=== PATIENT | female | born 1985 | race Caucasian/White ===

== ENCOUNTER → 2020-06-05 08:20 | Outpatient (CLI) | payer OTHER, MEDICAID, SELFPAY ==
[2014-09-29 13:43] VITALS: BMI 29.1
[2020-06-05 10:20] LABS: T4 Free Direct 0.78 ng/dL (0.76-1.46); Thyroid Stim Hormone (TSH) 2.29 uIU/mL (0.358-3.74)
== END ==
PROVIDERS: PCP Nurse Practitioner Family; Referring Provider Nurse Practitioner Family; Visit Provider Nurse Practitioner Family
DX: R63.5 Abnormal weight gain (principal)
CPT/HCPCS: 36415; 84439; 84443

== ENCOUNTER → 2020-12-03 07:59 | Outpatient (CLI) | payer OTHER, MEDICAID, SELFPAY ==
[2020-12-03 09:44] LABS: Internal QC Validated? YES +Cl - CLEAR BKGD; Pregnancy, Serum, hCG Quali. NEGATIVE Negative
[2020-12-03 11:10] LABS: Follicle Stimulating Hormone 5.3 mIU/mL; Potassium 3.8 mmol/L (3.5-5.1); T4 Free Direct 0.82 ng/dL (0.76-1.46); Thyroid Stim Hormone (TSH) 1.96 uIU/mL (0.358-3.74)
[2020-12-08 15:08] LABS: DHEA Sulfate 73.5 ug/dL (84.8-378.0); Testosterone, % Free 4.12 % (0.50-2.80); Testosterone, Free 0.91 ng/dL (0.10-0.85); Testosterone, Total 22 ng/dL (8-60)
[2020-12-08 16:22] LABS: Androstenedione 149 ng/dL (41-262); Sex Hormone-binding Globulin 20.5 nmol/L (24.6-122.0)
[2020-12-10 14:44] LABS: 17-Hydroxyprogesterone 54 ng/dL (.)
== END ==
PROVIDERS: PCP Nurse Practitioner Family; Referring Provider Dermatology; Visit Provider Dermatology
DX: L70.8 Other acne (principal); E28.2 Polycystic ovarian syndrome; L68.9 Hypertrichosis, unspecified; L83 Acanthosis nigricans; L21.8 Other seborrheic dermatitis; D22.5 Melanocytic nevi of trunk; L82.1 Other seborrheic keratosis; Z71.89 Other specified counseling; Z79.899 Other long term (current) drug therapy
CPT/HCPCS: 36415; 82157; 82627; 83001; 83498; 84132; 84270; 84402; 84403; 84439; 84443; 84703; 82626

== ENCOUNTER 2020-12-30 07:00 | Outpatient (RCR) | payer OTHER, SELFPAY ==
--- NOTE | 2020-06-15 12:31 | MASS.EVAL_ITS ---
Massage Therapy Evaluation: Initial Evaluation Date: 06/12/2020 SUBJECTIVE: Yari is a 35 year old female who was referred to the [facility] facility for a massotherapy evaluation by Dr. Pena with the diagnosis of neck and back pain. She presents today with the symptoms of pain, stiffness and tension in the neck, head, mid back, and low back. Yari reports that the pain in her neck and shoulders is related to working on a computer. OBJECTIVE: Upon observation Yari has some posture issues with her head and shoulders forward from the neutral position in sitting and standing. After examination and palpation, I found Yari to have high muscle tension with tenderness and myofascial restrictions in her sub occipitals, levator scapulae, trapezius, rhomboids, scalenes, and thoracic paraspinals. L. Her QL?s, lumbar paraspinals, piriformis, ITB?s, glute medius and minimus all were very tight with fascial restrictions, tender points and trigger points. The first treatment consisted of a one hour massage to her full body with myofascial release, muscle stripping, trigger point compression techniques, and cervical manual traction. ASSESSMENT: I feel that Yari is a good candidate for massotherapy at this time. She had a favorable response to the first treatment with reduction in her muscle aches, pain and tension. She also had improvement in her cervical flexibility and low back flexibility. PLAN: The plan of care was reviewed with the patient. The patient is to be seen on an as needed basis for a total of ten one hour sessions throughout the year 2020.
--- NOTE | 2021-02-15 17:26 | MASS.DISCH ---
Massage Therapy Discharge Summary: Initial Evaluation Date: 06/12/20 Diagnosis: Neck and back pain No. of Visits: 4 Date of last visit: 12/30/20 This patient is being discharged from our care at the [facility]. Thank you, Sonja Miranda LMT
== END 2020-12-30 19:00 | disposition home or self-care (01) ==
LOC: MASS 07:00
PROVIDERS: PCP Nurse Practitioner Family; Referring Provider Nurse Practitioner Family; Visit Provider Nurse Practitioner Family
DX: M54.2 Cervicalgia (principal)
CPT/HCPCS: 97124

== ENCOUNTER 2021-03-08 16:24 | Outpatient (CLI) | payer OTHER, MEDICAID, SELFPAY ==
[2021-03-08 17:40] LABS: AST(SGOT) 16 U/L (15-37); Alanine Aminotransfer ALT/SGPT 24 U/L (13-56); Albumin, Serum 3.6 g/dL (3.2-5.0); Alkaline Phosphatase 41 U/L (45-117); Anion Gap 6 (5-15); BUN 14 mg/dL (7-18); BUN/Creat Ratio 15.7 RATIO (10-20); Bilirubin, Direct 0.06 mg/dL (0.00-0.30); Calcium,Total 9.5 mg/dL (8.5-10.1); Chloride 104 mmol/L (98-107); Creatinine, Serum 0.89 mg/dL (0.55-1.02); EST Glomerular Filtration Rate 77 mL/min (>60); Est Glom Filt Rate - Afr Amer 93 mL/min (>60); Globulin 4.4 g/dL (2.2-4.2); Glucose 95 mg/dL (74-106); Potassium 3.8 mmol/L (3.5-5.1); Sodium Level 137 mmol/L (136-145)
== END 2021-03-08 23:59 | disposition short-term general hospital (02) ==
LOC: LAB 16:26
PROVIDERS: PCP Nurse Practitioner Family; Referring Provider Dermatology; Visit Provider Dermatology
DX: L70.8 Other acne (principal); E28.2 Polycystic ovarian syndrome; Z79.899 Other long term (current) drug therapy
CPT/HCPCS: 36415; 80048; 80076

== ENCOUNTER → 2021-09-30 | Outpatient (CLI) | payer OTHER, MEDICAID, SELFPAY ==
[2021-09-30 23:00] LABS: Mucous, Urine 0 SEEN /hpf (<or=2+)
[2021-09-30 23:03] LABS: Color, Urine Yellow (Yellow); Glucose, Dipstick Normal (Normal); Ketone-Dipstick Negative (Negative); Leukocyte Esterase-Dipstick Negative /ul (Negative); Nitrite-Dipstick Negative (Negative); Occult Blood-Urine 50 /ul (Negative); Protein-Dipstick 15 mg/dl (Negative); Specific Gravity, Urine 1.015 (1.002-1.030); Urine Bilirubin Dipstick Negative (Negative); Urine Clarity Clear (Clear); Urine Urobilinogen Normal (Normal)
[2021-09-30 23:12] LABS: Red Blood Cells-Urine 0-5 SEEN /hpf (0-5); White Blood Cells 0-5 SEEN /hpf (0-5)
[2021-09-30 23:13] LABS: Bacteria 1+ /hpf (None Seen); Squamous Epithelial Cells - UA 0-5 SEEN /hpf (5-10)
== END | disposition home or self-care (01) ==
PROVIDERS: PCP Nurse Practitioner Family; Visit Provider Physician Assistant
DX: N39.0 Urinary tract infection, site not specified (principal)
CPT/HCPCS: 81001; 87086; 87088

== ENCOUNTER 2021-10-02 09:44 | Emergency (ER) | payer OTHER, MEDICAID, SELFPAY ==
[2021-10-02 09:44] VITALS: BP 160/100; PULSE 87; RESP 18; TEMP 36.6; O2SAT 100; BMI 34.5
[2021-10-02 09:49] VITALS: BP 127/86; PULSE 78; RESP 18; TEMP 37.2; O2SAT 95
[2021-10-02 09:51] VITALS: BP 127/86; PULSE 76; RESP 18; TEMP 37; O2SAT 96
--- NOTE | 2021-10-02 10:08 | EX.ED.DYSGE1 ---
HPI History of Present Illness Chief Complaint: Complaint Informant: patient Onset/Context/Timing Onset: Days (5) Context: Gradual Onset Timing: Continuous and Waxes and wanes Quality: Sharp, aching Location: Urethra, right inguinal area, right flank Worsened by: Nothing Relieved by: [id number]-idxjwin medications Narrative Narrative: Patient presents with dysuria and pelvic pain that has been getting worse over the last 5 days. Patient states [facility] and [facility] there. Patient states she was told there was no urinary tract infection. Patient states her pain is now radiating into her back. Patient states she does have a family history of kidney stones. Patient describes her pain as aching in her back and sharp in her urethra and right inguinal area. Patient states she took some [id number] urinary tract infection medications which did help. Patient admits to some nausea but denies any vomiting. Patient states she did notice some pink tinge to her urine when she wiped yesterday. Patient denies any gross hematuria. [facility] Medical History Hematuria Home Medications epinephrine 0.3 mg/0.3 mL injection, auto-injector IM 09/17/20 [History Last Taken Unknown] paroxetine HCl 30 mg tablet tablet PO 09/17/20 [History Last Taken Unknown] sumatriptan succinate 25 mg tablet 25 mg PO ONCE PRN Migraine Headache 08/19/21 [History Last Taken Unknown] metformin 500 mg tablet,extended release 24 hr 1 tab PO BID 10/02/21 [History Last Taken Unknown] norethindrone 1.5 mg-ethinyl estradiol 30 mcg(21)/iron 75 mg(7) tablet ( FE .08/02 ()) 1 tab PO DAILY 10/02/21 [History Last Taken Unknown] spironolactone 100 mg tablet 1 tab PO BID 10/02/21 [History Last Taken Unknown] Allergy/AdvReac Type Severity Reaction Status Date / Time nickel [Nickel] Allergy Hives Verified 10/02/21 09:53 shellfish derived Allergy Anaphylaxis Verified 10/02/21 09:53 Family History Grandfather Alcohol abuse Grandmother Breast cancer Mother Seizures Father CVA (cerebral vascular accident) Other Diabetes Heart disease Hypertension Surgical History History of surgery on lower extremity S/P Social History Smoking Status: Never smoker ROS ROS ED Constitutional Constitutional ED: Denies chills or fever(s) Eyes Eyes: Denies blurry vision or change in vision ENT ENT ED: Denies rhinorrhea or sore throat Cardiovascular Cardiovascular: Denies chest pain or palpitations Respiratory/Chest Respiratory/Chest: Denies cough or dyspnea Gastrointestinal Gastrointestinal: Reports nausea; Denies vomiting Genitourinary Genitourinary ED: Reports dysuria and hematuria Musculoskeletal Musculoskeletal: Reports back pain; Denies neck pain Integumentary Denies abscess or rash Neurologic Neurologic: Denies headache(s) or weakness Allergic/Immunologic Allergic/Immunologic ED: Denies mouth swelling or urticaria EXAM Physical Exam Const Vital Signs: 10/02/21 09:44 10/02/21 09:49 10/02/21 09:51 Temperature 97.9 F 98.9 F 98.6 F Temperature Source Temporal Oral Oral Pulse Rate 87 78 76 Respiratory Rate 18 18 18 Blood Pressure 160/100 H 127/86 H 127/86 H Blood Pressure Mean 120 99 99 Pulse Ox 100 95 96 Oxygen Delivery Method Room Air Room Air Room Air 10/02/21 11:39 Temperature 98.2 F Temperature Source Oral Pulse Rate 64 Respiratory Rate 18 Blood Pressure 113/75 Blood Pressure Mean 87 Pulse Ox 99 Oxygen Delivery Method Room Air Positive well nourished and well developed General Appearance ED: well developed HEENT Reports moist mucous membranes Neck supple and no JVD Resp normal respiratory effort and clear to auscultation bilaterally Cardio regular rate, regular rhythm and no murmurs GI normal to inspection, nondistended, normoactive bowel sounds and non-tender Palpation: soft Back/Spine General Back: CVA tenderness right Extremity normal to inspection General Extremety ED: Negative for edema or tenderness General Extremity: Negative for edema Neuro oriented x3, CN's II-XII intact bilaterally and no sensory deficits noted Sensorium / Orientation: alert Motor Exam: strength 5/5 throughout Psych mental status grossly normal Skin no rashes or lesions noted MDM MDM MDM Narrative Medical decision making narrative: Patient was given IV fluids here. Patient declined analgesics here. CBC shows a slight anemia with a hemoglobin of 11.6 and hematocrit 36.5. Platelets were normal. Comprehensive metabolic profile was within normal limits. Serum hCG was negative. Urinalysis does not show any evidence of urinary tract infection or hematuria. CT scan of the abdomen and pelvis was obtained. There is a small punctate calculus in the right kidney. There is no hydronephrosis or hydroureter. There are no ureteral calculi noted. There are no hernias noted. There is no other acute abnormality. This was interpreted by the radiologist and reviewed by myself. Patient was advised of her findings. Patient was instructed to follow-up with her primary care physician in 5 to 7 days for reevaluation. Patient understood and was agreeable with the plan. All questions were answered. Lab Data Attestation: I reviewed the patient's lab results. Labs: Laboratory Results - last 24 hr 10/02/21 10/02/21 10/02/21 10:30 10:30 10:30 WBC 7.1 RBC 4.30 Hgb 11.6 L Hct 36.5 L MCV 84.9 MCH 27.0 MCHC 31.8 L RDW Std Deviation 53.5 H RDW Coeff of Abdirahman 17.2 H Plt Count 359 MPV 9.2 Immature Gran % (Auto) 0.100 Neut % (Auto) 55.0 Lymph % (Auto) 31.1 [place] % (Auto) 5.9 Eos % (Auto) 7.2 H Baso % (Auto) 0.7 Absolute Neuts (auto) 3.9 Absolute Lymphs (auto) 2.22 Nucleated RBC % 0 Sodium 138 Potassium 4.1 Chloride 109 H Carbon Dioxide 24.0 Anion Gap 5 BUN 9 Creatinine 0.71 Estim Creat Clear Calc 84.25 Est GFR (MDRD) Af Amer 121 Est GFR (MDRD) Non-Af 100 BUN/Creatinine Ratio 12.7 Glucose 107 H Calcium 9.4 Total Bilirubin 0.20 AST 16 ALT 26 Alkaline Phosphatase 40 L Total Protein 7.6 Albumin 3.6 Globulin 4.0 Albumin/Globulin Ratio 0.9 Serum , Qual NEGATIVE Urine Color Urine Clarity Urine pH Ur Specific [place] Urine Protein Urine Glucose (UA) Urine Ketones Urine Occult Blood Urine Nitrite Urine Bilirubin Urine Urobilinogen Ur Leukocyte Esterase Urine RBC Urine WBC Ur Squamous Epith Cells Urine Bacteria Urine Mucus 07/30/22 11:22 WBC RBC Hgb Hct MCV MCH MCHC RDW Std Deviation RDW Coeff of Abdirahman Plt Count MPV Immature Gran % (Auto) Neut % (Auto) Lymph % (Auto) [place] % (Auto) Eos % (Auto) Baso % (Auto) Absolute Neuts (auto) Absolute Lymphs (auto) Nucleated RBC % Sodium Potassium Chloride Carbon Dioxide Anion Gap BUN Creatinine Estim Creat Clear Calc Est GFR (MDRD) Af Amer Est GFR (MDRD) Non-Af BUN/Creatinine Ratio Glucose Calcium Total Bilirubin AST ALT Alkaline Phosphatase Total Protein Albumin Globulin Albumin/Globulin Ratio Serum , Qual Urine Color Yellow Urine Clarity Clear Urine pH 6.0 Ur Specific [place] 1.015 Urine Protein Negative Urine Glucose (UA) NEGATIVE Urine Ketones Negative Urine Occult Blood Negative Urine Nitrite Negative Urine Bilirubin Negative Urine Urobilinogen Normal Ur Leukocyte Esterase Negative Urine RBC 0 SEEN Urine WBC 0 SEEN Ur Squamous Epith Cells 0-5 SEEN Urine Bacteria 0 SEEN Urine Mucus 0 SEEN Radiography Diagnostic Testing: Clinical Impression(s) from Imaging Studies Abdomen/Pelvis CT 10/02/21 10:11 IMPRESSION: Right (punctate) nephrolithiasis. No hydronephrosis. Electronically Signed: Armani Conway MD (Brooks) at 11:41 EDT Reading Location ID and State: [facility] / [place] , Service support , Discharge Plan Triage Chief Complaint: Complaint ED Provider: Yamil Narayan Dx/Rx/DC Orders Clinical Impression: Pelvic pain, Right flank pain Instructions: ED Flank Pain, Uncertain Cause, ED Pelvic Pain, Unknown Cause Prescriptions: No Action paroxetine HCl 30 mg tablet PO epinephrine 0.3 mg/0.3 mL auto-injector IM sumatriptan succinate 25 mg tablet 25 mg PO ONCE PRN (Reason: Migraine Headache) norethindrone-e.estradiol-iron [ (28)] 1.5 mg-30 mcg (21)/75 mg (7) tablet 1 tab PO DAILY metformin 500 mg tablet extended release 24 hr 1 tab PO BID spironolactone 100 mg tablet 1 tab PO BID Primary Care Provider: Franci Pena NP Referrals: Franci Pena NP, [facility] [Primary Care Provider] - 5-7 Days Disposition Disposition: Home, Self Care
--- NOTE | 2021-10-02 10:11 | CT_ITS ---
STUDY: CT ABDOMEN AND PELVIS WITHOUT CONTRAST REASON FOR EXAM: Female, 36 years old. Right flank pain RADIATION DOSAGE (If Supplied By Facility): CTDIvol = ( 11.14 ) mGy, DLP = ( 509.37 ) mGycm TECHNIQUE: Transaxial images were obtained from the dome of the diaphragm to the symphysis pubis without oral contrast, and without intravenous contrast. Sagittal and coronal images were reconstructed. Individualized dose optimization techniques were used for this CT. COMPARISON: None. FINDINGS: The visualized lung bases are unremarkable. The visualized portions of the heart are within normal limits. Normal liver. Normal gallbladder and extrahepatic biliary system. Normal spleen. Normal pancreas. Normal bilateral adrenal glands. Calculi the right kidney measured 1-3 mm. No hydronephrosis. No ureteral calculi. Normal visualized stomach. Normal small intestine. Normal colon. The appendix is not seen but no secondary signs of appendicitis. Normal abdominal aorta. Normal inferior vena cava. Normal retroperitoneum. Normal urinary bladder. There is a small umbilical hernia containing fat. Degenerative disc disease of the lower lumbar spine. CT/Abdomen/Pelvis without Cont IMPRESSION: Right (punctate) nephrolithiasis. No hydronephrosis. Electronically Signed: Armani Conway MD (Brooks) at 11:41 EDT Reading Location ID and State: [facility] / [place] , Service support ,
[2021-10-02] MEDS: 0.9% Normal Saline 1,000 ML 1000 ML IV (10:27)
[2021-10-02 10:34] LABS: Absolute Lymphocyte Count 2.22 X10^3/uL (0.83-4.51); Absolute Neutrophil Count 3.9 X10^3/uL (2.0-7.7); Basophil# 0.05 X10^3/uL; Basophil% 0.7 % (0-1); Eosinophil# 0.51 X10^3/uL; Eosinophils% 7.2 % (0-5); Hematocrit 36.5 % (37-47); Hemoglobin 11.6 g/dL (12.0-15.0); Lymphocyte # 2.22 X10^3/ul (0.83-4.51); Lymphocyte % 31.1 % (19-41); Mean Corp Hgb Conc 31.8 g/dL (32-36); Mean Corpuscular Volume 84.9 fL (81-99); Mean Platelet Vol. 9.2 fl (6.2-12.0); Monocyte# 0.42 X10^3/uL; Monocyte% 5.9 % (0-10); NRBC Flagged by Analyzer 0 % (0-5); Neutrophil # 3.92 X10^3/uL (2.7-7.7); Platelet Count 359 K/mm3 (150-450); RBC Distribution Width CV 17.2 % (11.6-14.6); RBC Distribution Width SD 53.5 fl (35.1-43.9); White Blood Count 7.1 K/mm3 (4.4-11.0)
[2021-10-02 10:48] LABS: ALB/GLOB Ratio 0.9 RATIO (0.9-2.4); AST(SGOT) 16 U/L (15-37); Alanine Aminotransfer ALT/SGPT 26 U/L (13-56); Albumin, Serum 3.6 g/dL (3.2-5.0); Alkaline Phosphatase 40 U/L (45-117); Anion Gap 5 (5-15); BUN 9 mg/dL (7-18); BUN/Creat Ratio 12.7 RATIO (10-20); Calcium,Total 9.4 mg/dL (8.5-10.1); Chloride 109 mmol/L (98-107); Creatinine, Serum 0.71 mg/dL (0.55-1.02); EST Glomerular Filtration Rate 100 mL/min (>60); Est Glom Filt Rate - Afr Amer 121 mL/min (>60); Estimated Creatinine Clearance 84.25 ml/min; Glucose 107 mg/dL (74-106); Potassium 4.1 mmol/L (3.5-5.1); Protein, Total 7.6 g/dL (6.4-8.2); Sodium Level 138 mmol/L (136-145)
[2021-10-02 11:08] LABS: Internal QC Validated? YES +Cl - CLEAR BKGD; Pregnancy, Serum, hCG Quali. NEGATIVE Negative
[2021-10-02 11:30] LABS: Bacteria 0 SEEN /hpf (None Seen); Mucous, Urine 0 SEEN /hpf (<or=2+); Red Blood Cells-Urine 0 SEEN /hpf (0-5); White Blood Cells 0 SEEN /hpf (0-5)
[2021-10-02 11:39] VITALS: BP 113/75; PULSE 64; RESP 18; TEMP 36.8; O2SAT 99
[2021-10-02 12:29] LABS: Color, Urine Yellow (Yellow); Glucose, Dipstick NEGATIVE (Normal); Ketone-Dipstick Negative (Negative); Leukocyte Esterase-Dipstick Negative /ul (Negative); Nitrite-Dipstick Negative (Negative); Occult Blood-Urine Negative /ul (Negative); Protein-Dipstick Negative (Negative); Specific Gravity, Urine 1.015 (1.002-1.030); Urine Bilirubin Dipstick Negative (Negative); Urine Clarity Clear (Clear); Urine Urobilinogen Normal (Normal)
[2021-10-02 12:30] LABS: Squamous Epithelial Cells - UA 0-5 SEEN /hpf (5-10)
== END 2021-10-02 13:04 | disposition home or self-care (01) ==
PROVIDERS: Emergency Provider Emergency Medicine; PCP Nurse Practitioner Family; Visit Provider Emergency Medicine
DX: R10.2 Pelvic and perineal pain (principal); R10.9 Unspecified abdominal pain; Z79.84 Long term (current) use of oral hypoglycemic drugs
CPT/HCPCS: 74176; 80053; 81001; 84703; 85025; 96360; 99283; J7030; A4216

== ENCOUNTER → 2021-11-18 | Outpatient (CLI) | payer OTHER, MEDICAID, SELFPAY ==
[2021-11-20 13:07] LABS: Chlamydia By Nucleic Acid AMP Negative (Negative)
[2021-11-20 13:16] LABS: Gonococcus By Nucleic Acid AMP Negative (Negative)
[2021-11-25 08:32] LABS: HPV APTIMA, High Risk Negative (Negative)
== END | disposition home or self-care (01) ==
LOC: LABSPEC 12:23
PROVIDERS: PCP Nurse Practitioner Family; Referring Provider Obstetrics & Gynecology; Visit Provider Obstetrics & Gynecology
DX: Z12.4 Encounter for screening for malignant neoplasm of cervix (principal); Z11.3 Encounter for screening for infections with a predominantly sexual mode of transmission
CPT/HCPCS: 87491; 87591; 87624; 88175; G0145

== ENCOUNTER → 2021-12-15 | Outpatient (CLI) | payer OTHER, MEDICAID, SELFPAY ==
--- NOTE | 2021-12-15 07:51 | US_ITS ---
STUDY: ULTRASOUND OF THE FEMALE PELVIS - COMPLETE REASON FOR EXAM: Female, 36 years old. Check IUD placement LMP: 11/18/2021. TECHNIQUE: Transabdominal and Transvaginal TECHNICAL QUALITY: Adequate. COMPARISON: None. FINDINGS: The uterus is retroflexed and is in a midline position. The uterus measures 7.6 cm x 6.2 cm x 5.6 cm. There is a Nabothian cyst of the cervix. The endometrium measures 3 mm in thickness, and is . There is no demonstrated endometrial mass. There is no demonstrated myometrial mass. I.U.D. - The patient does have an I.U.D. . The IUD is seen within the cervical canal and lower uterine segment. The right ovary is visualized. The right ovary measures 3.4 cm x 2.9 cm x 2.4 cm. There is a 2.2 cm by 2.1 cm x 1.7 cm cyst. There is no visualized right adnexal mass or complex lesion. There is normal arterial and normal venous vascularity. The left ovary is visualized. The left ovary measures 4.4 cm x 3.8 cm x 3 cm. There is a 2.8 cm x 3 cm x 2.4 cm cyst in the left ovary. There is no visualized left adnexal mass or complex lesion. There is normal arterial and normal venous vascularity. There is no fluid in the cul-de-sac. The pre void volume of the bladder was 612 ml. US/Pelvic (Non ) IMPRESSION: Bilateral ovarian cysts. The IUD is seen within the cervical canal and lower uterine segment. Electronically Signed: Red Zimmer MD at 15:32 EDT ,
--- NOTE | 2021-12-15 07:51 | US_ITS ---
STUDY: ULTRASOUND OF THE FEMALE PELVIS - COMPLETE REASON FOR EXAM: Female, 36 years old. Check IUD placement LMP: 11/18/2021. TECHNIQUE: Transabdominal and Transvaginal TECHNICAL QUALITY: Adequate. COMPARISON: None. FINDINGS: The uterus is retroflexed and is in a midline position. The uterus measures 7.6 cm x 6.2 cm x 5.6 cm. There is a Nabothian cyst of the cervix. The endometrium measures 3 mm in thickness, and is . There is no demonstrated endometrial mass. There is no demonstrated myometrial mass. I.U.D. - The patient does have an I.U.D. . The IUD is seen within the cervical canal and lower uterine segment. The right ovary is visualized. The right ovary measures 3.4 cm x 2.9 cm x 2.4 cm. There is a 2.2 cm by 2.1 cm x 1.7 cm cyst. There is no visualized right adnexal mass or complex lesion. There is normal arterial and normal venous vascularity. The left ovary is visualized. The left ovary measures 4.4 cm x 3.8 cm x 3 cm. There is a 2.8 cm x 3 cm x 2.4 cm cyst in the left ovary. There is no visualized left adnexal mass or complex lesion. There is normal arterial and normal venous vascularity. There is no fluid in the cul-de-sac. The pre void volume of the bladder was 612 ml. US/Transvaginal Non- IMPRESSION: Bilateral ovarian cysts. The IUD is seen within the cervical canal and lower uterine segment. Electronically Signed: Red Zimmer MD at 15:32 EDT ,
== END | disposition home or self-care (01) ==
LOC: OPUS 07:45
PROVIDERS: PCP Nurse Practitioner Family; Visit Provider Obstetrics & Gynecology
DX: Z30.430 Encounter for insertion of intrauterine contraceptive device (principal)
CPT/HCPCS: 76830; 76856

== ENCOUNTER → 2021-12-30 | Outpatient (CLI) | payer OTHER, MEDICAID, SELFPAY ==
--- NOTE | 2021-12-30 07:36 | US_ITS ---
STUDY: ULTRASOUND OF THE FEMALE PELVIS - COMPLETE REASON FOR EXAM: Female, 36 years old. Confirm IUD LMP: 11/18/2021. TECHNIQUE: Transabdominal and Transvaginal TECHNICAL QUALITY: Adequate. COMPARISON: Comparison is made with prior study 12/15/2021. FINDINGS: The uterus is retroflexed and is in a midline position. The uterus measures 7.6 cm x 6.7 cm x 5.3 cm. Normal uterine cervix. The endometrium measures 3.0 mm in thickness, and is hyperechoic. There is no demonstrated endometrial mass. There is no demonstrated myometrial mass. I.U.D. - The patient does have an I.U.D. . The IUD is seen within the lower uterine segment/cervix. The right ovary is visualized. The right ovary measures 3.9 cm x 2.3 cm x 1.8 cm. There is no right ovarian cyst or ovarian mass. There is no visualized right adnexal mass or complex lesion. There is normal arterial and normal venous vascularity. The left ovary is visualized. The left ovary measures 3.8 cm x 4 cm x 2.9 cm. There is a 2.8 cm x 2.8 signed by 1.8 cm cyst in the left ovary. There is no visualized left adnexal mass or complex lesion. There is normal arterial and normal venous vascularity. There is no fluid in the cul-de-sac. The pre void volume of the bladder was 406 ml. US/Pelvic (Non ) IMPRESSION: The IUD is seen within the lower uterine segment/cervix. 2.8 cm x 2.8 cm x 1.8 cm left ovarian cyst. Electronically Signed: Red Zimmer MD at 9:48 EDT ,
== END | disposition home or self-care (01) ==
LOC: US 07:35
PROVIDERS: PCP Nurse Practitioner Family; Referring Provider Obstetrics & Gynecology; Visit Provider Obstetrics & Gynecology
DX: Z30.430 Encounter for insertion of intrauterine contraceptive device (principal)
CPT/HCPCS: 76830; 76856

== ENCOUNTER → 2022-03-09 | Outpatient (CLI) | payer OTHER, MEDICAID, SELFPAY ==
[2022-03-09 13:55] LABS: AST(SGOT) 22 U/L (15-37); Alanine Aminotransfer ALT/SGPT 34 U/L (13-56); Alkaline Phosphatase 55 U/L (45-117); Anion Gap 5 (5-15); BUN 11 mg/dL (7-18); BUN/Creat Ratio 13.7 RATIO (10-20); Bilirubin, Direct 0.06 mg/dL (0.00-0.30); Calcium,Total 9.5 mg/dL (8.5-10.1); Chloride 108 mmol/L (98-107); EST Glomerular Filtration Rate 87 mL/min (>60); Est Glom Filt Rate - Afr Amer 105 mL/min (>60); Globulin 4.2 g/dL (2.2-4.2); Glucose 85 mg/dL (74-106); Potassium 3.8 mmol/L (3.5-5.1); Protein, Total 8.2 g/dL (6.4-8.2); Sodium Level 139 mmol/L (136-145)
== END | disposition home or self-care (01) ==
LOC: LAB 12:05
PROVIDERS: PCP Nurse Practitioner Family; Referring Provider Dermatology; Visit Provider Dermatology
DX: L70.8 Other acne (principal); Z79.899 Other long term (current) drug therapy; E28.2 Polycystic ovarian syndrome
CPT/HCPCS: 36415; 80048; 80076

== ENCOUNTER → 2022-06-02 | Outpatient (CLI) | payer OTHER, MEDICAID, SELFPAY ==
--- NOTE | 2022-06-02 08:01 | BI_ITS ---
MAMMOGRAPHY - BILATERAL SCREENING REASON FOR EXAM: Female, 37 years old. Routine annual screening examination. PERTINENT HISTORY: Grandmother with breast cancer. TECHNIQUE: Digital bilateral breast maxim (3D mammographic acquisition) in the CC and MLO projections. 2-D mediolateral oblique (MLO) and craniocaudad (CC) views of both breasts were obtained. CAD: Full Field Digital Mammography with Computer Added Detection was performed. COMPARISON: None. Baseline examination. FINDINGS: Breast Composition: There are scattered areas of fibroglandular density. There are no dominant masses or suspicious calcifications. Asymmetry of breast tissue where more breast tissue is seen in the right breast as compared to the left side. No other significant abnormalities are identified. BI/SCRN MAMM (CAD)W/MAXIM BILAT IMPRESSION: Negative screening mammogram. Yearly followup mammogram recommended. (A) ASSESSMENT CATEGORY: BIRADS Category 2: Benign. A letter regarding these results will be sent to the patient by the facility within 30 days. Approximately 10% of breast cancers are not detected by mammography. A normal mammogram should not delay biopsy of a clinically suspicious abnormality. [id number] Electronically Signed: Red Zimmer MD at 9:09 EDT ,
== END | disposition home or self-care (01) ==
LOC: OPBI 08:00
PROVIDERS: PCP Nurse Practitioner Family; Visit Provider Obstetrics & Gynecology
DX: Z12.31 Encounter for screening mammogram for malignant neoplasm of breast (principal)
CPT/HCPCS: 77063; 77067

== ENCOUNTER → 2022-10-04 | Outpatient (CLI) | payer OTHER, SELFPAY ==
[2022-10-04 09:20] LABS: Rheumatoid Factor < 10.0 IU/mL (<15); T4 Free Direct 0.86 ng/dL (0.76-1.46); Thyroid Stim Hormone (TSH) 1.95 uIU/mL (0.358-3.74)
[2022-10-05 13:08] LABS: ANTINUCLEAR ANTIBODIES DIRECT Negative (Negative)
== END | disposition home or self-care (01) ==
LOC: LAB 07:26
PROVIDERS: PCP Nurse Practitioner Family; Referring Provider Nurse Practitioner Family; Visit Provider Nurse Practitioner Family
DX: Z13.1 Encounter for screening for diabetes mellitus (principal)
CPT/HCPCS: 36415; 84439; 84443; 86038; 86431

== ENCOUNTER → 2022-10-24 | Outpatient (CLI) | payer OTHER, SELFPAY ==
--- NOTE | 2022-10-24 08:49 | RAD_ITS ---
INDICATION: Pain EXAMINATION/TECHNIQUE: X-RAY - RIGHT XR Shoulder Min 2 Views 4 VIEWS COMPARISON: None. FINDINGS: No acute fracture or dislocation. Joint spaces are intact. Soft tissues are unremarkable. Visualized right lung is clear. No significant degenerative changes. RAD/Shoulder min 2 Views IMPRESSION: No acute findings. Electronically Signed: Tye Orosco DO at 10:36 EDT ,
== END | disposition home or self-care (01) ==
LOC: RAD 08:49
PROVIDERS: PCP Nurse Practitioner Family
DX: M25.511 Pain in right shoulder (principal)
CPT/HCPCS: 73030

== ENCOUNTER → 2022-11-24 | Outpatient (CLI) | payer OTHER, SELFPAY ==
[2022-11-24 11:57] LABS: HIV - WCH Non-Reactive (Nonreactive); Hepatitis B Surface Antigen Non-Reactive (Nonreactive); Hepatitis C Antibody Non-Reactive (Nonreactive); Syphilis Antibodies Non-reactive
[2022-11-25 12:08] LABS: HSV 1 IgG 0.94 index (0.00-0.90); HSV 2 IgG < 0.91 index (0.00-0.90)
[2022-11-28 22:06] LABS: Chlamydia By Nucleic Acid AMP Negative (Negative); Gonococcus By Nucleic Acid AMP Negative (Negative)
== END | disposition home or self-care (01) ==
PROVIDERS: PCP Nurse Practitioner Family; Referring Provider Obstetrics & Gynecology; Visit Provider Obstetrics & Gynecology
DX: Z11.3 Encounter for screening for infections with a predominantly sexual mode of transmission (principal)
CPT/HCPCS: 36415; 86695; 86696; 86703; 86780; 86803; 87340; 87491; 87591

== ENCOUNTER → 2022-12-12 | Outpatient (CLI) | payer OTHER, SELFPAY ==
[2022-12-12 15:23] LABS: Iron 137 ug/dL (50-170); Iron Binding Capacity,Total 404 ug/dL (250-450); PERCENT IRON SATURATION 33.9 % (15.0-55.0); Thyroid Stim Hormone (TSH) 1.63 uIU/mL (0.358-3.74)
== END | disposition home or self-care (01) ==
LOC: LAB 13:32
PROVIDERS: PCP Nurse Practitioner Family; Referring Provider Nurse Practitioner Family; Visit Provider Nurse Practitioner Family
DX: D64.9 Anemia, unspecified (principal); L65.9 Nonscarring hair loss, unspecified
CPT/HCPCS: 36415; 83540; 83550; 84443

== ENCOUNTER → 2023-12-05 | Outpatient (CLI) | payer OTHER, SELFPAY ==
--- NOTE | 2023-12-05 08:02 | BI_ITS ---
MAMMOGRAPHY - BILATERAL SCREENING REASON FOR EXAM: Female, 38 years old. Routine annual screening examination. PERTINENT HISTORY: Grandmother with breast cancer. TECHNIQUE: Digital bilateral breast maxim (3D mammographic acquisition) in the CC and MLO projections. 2-D mediolateral oblique (MLO) and craniocaudad (CC) views of both breasts were obtained. CAD: Full Field Digital Mammography with Computer Added Detection was performed. COMPARISON: Comparison is made with prior study June 02, 2022. FINDINGS: Breast Composition: There are scattered areas of fibroglandular density. There are no dominant masses or suspicious calcifications. No other significant abnormalities are identified. There has been no significant change since the prior study. BI/SCRN MAMM (CAD)W/MAXIM BILAT IMPRESSION: Stable bilateral screening mammogram. Yearly follow-up mammogram recommended. (A) ASSESSMENT CATEGORY: BIRADS Category 1: Negative. A letter regarding these results will be sent to the patient by the facility within 30 days. Approximately 10% of breast cancers are not detected by mammography. A normal mammogram should not delay biopsy of a clinically suspicious abnormality. [id number] Electronically Signed: Red Zimmer MD at 8:39 EDT ,
== END | disposition home or self-care (01) ==
PROVIDERS: PCP Nurse Practitioner Family; Referring Provider Nurse Practitioner Family; Visit Provider Nurse Practitioner Family
DX: Z12.31 Encounter for screening mammogram for malignant neoplasm of breast (principal)
CPT/HCPCS: 77063; 77067

== ENCOUNTER → 2024-11-26 | Outpatient (CLI) | payer OTHER, SELFPAY ==
--- OUTSIDE RECORDS SUMMARY | 2024-11-26 12:45 | XMS RPT_ITS | CCD ---
Author Organization [facility] Care Team Providers Care Preload Supervisor Name Role Phone Becky GENERAL DISTILLERY WORKER, GENERAL DISTILLERY WORKER-C Franci Primary Care Provider GIOVANNI Hendrix Attending Provider eYsyson GENERAL DISTILLERY WORKER, GENERAL DISTILLERY WORKER-C Franci Referring Provider [phone] Hermes CULP, GENERAL DISTILLERY WORKER-C Erlinda Slater Attending Provider [phone] Dr. Em Lazar Attending Provider [phone] GIOVANNI Sabillon Attending Provider Lorson GENERAL DISTILLERY WORKER, GENERAL DISTILLERY WORKER-C Franci Primary Care Provider [place]on GENERAL DISTILLERY WORKER, GENERAL DISTILLERY WORKER-C Franci Referring Provider [phone] GIOVANNI Hendrix Attending Provider Dr. Eliana Camacho Attending Provider [place] GENERAL DISTILLERY WORKER, GENERAL DISTILLERY WORKER-C Franci Primary Care Provider [phone] [place] GENERAL DISTILLERY WORKER, GENERAL DISTILLERY WORKER-C Franci Referring Provider [phone] L[place]on GENERAL DISTILLERY WORKER, GENERAL DISTILLERY WORKER-C Franci Primary Care Provider [place]on GENERAL DISTILLERY WORKER, GENERAL DISTILLERY WORKER-C Franci Referring Provider [phone] L[place]on GENERAL DISTILLERY WORKER, GENERAL DISTILLERY WORKER-C Franci Primary Care Provider [phone] [place] GENERAL DISTILLERY WORKER, GENERAL DISTILLERY WORKER-C Franci Referring Provider [phone] Dr. Eliana Camacho Attending Provider [phone] [place]on GENERAL DISTILLERY WORKER, GENERAL DISTILLERY WORKER-C Franci Primary Care Provider [phone] GIOVANNI Hendrix Attending Provider Yesyson GENERAL DISTILLERY WORKER, GENERAL DISTILLERY WORKER-C Franci Primary Care Provider [phone] Becky GENERAL DISTILLERY WORKER, AMAURY Koroma Referring Provider GIOVANNI Galan Attending Provider Dr. Eliana Camacho Attending Provider [phone] [place] [employer] AIDE-DINKEY MOTOR OPERATOR, FRANCI Primary Care Physician [employer] AIDE-DINKEY MOTOR OPERATOR, FRANCI Attending Unavail able [employer] AIDE-DINKEY MOTOR OPERATOR, FRANCI Primary Care Unavail able [employer] AIDE-DINKEY MOTOR OPERATOR, FRANCI Attending Unavail able [employer] AIDE-DINKEY MOTOR OPERATOR, FRANCI Primary Care Unavail able [place] [employer] AIDE-DINKEY MOTOR OPERATOR, [place] Attending Unavailabl e [employer] AIDE-DINKEY MOTOR OPERATOR, FRANCI Primary Care Unavail able [place] GENERAL DISTILLERY WORKER, Franci Primary Care Unavailable [place] GENERAL DISTILLERY WORKER, Franci Referring Unavailable Rex Hendrix Attending Unavailable [place] GENERAL DISTILLERY WORKER, Franci Attending Unavailable Yesyson GENERAL DISTILLERY WORKER, Franci Referring Unavailable Yesyson GENERAL DISTILLERY WORKER, Franci Primary Care Unavailable [place] GENERAL DISTILLERY WORKER, Franci Primary Care Unavailable [place] GENERAL DISTILLERY WORKER, Franci Attending Unavailable [place] GENERAL DISTILLERY WORKER, Franci Referring Unavailable Allergies Allergy Classification Reported Allergen(s) Allergy Type Date of Onset Reaction(s) Facility (15 sources) nickel; Translations: [NICKEL] Drug Allergy 9 AOF, Hives, Unknown [facility] Repository (4 sources) Shellfish; Translations: [SHELLFISH] Propensity to adverse reactions to food (disorder) 9 AOF [facility] Repository (11 sources) Shellfish; Translations: [shellfish derived] Allergy to substance 2 Anaphylaxis [facility] Medications Current Medications Medication Drug Class(es) Dates Sig (Normalized) Sig (Original) biotin 5 mg oral capsule (4 sources) Start: 10-24-2022 take 5 mg by mouth once daily Biotin Active 5 MG PO DAILY October 24, 2022 12:00am Start: 10-24-2022 End: 10-24-2022 take 1 mg by mouth once daily Biotin Discontinued 1 MG PO DAILY October 24, 2022 12:00am October 24, 2022 11:01am calcium ascorbate 500 mg oral tablet (2 sources) Start: 10-24-2022 take 500 mg by mouth once daily Ascorbate Calcium (Vitamin C) Active 500 MG PO DAILY October 24, 2022 12:00am cephalexin 500 mg oral capsule (1 source) Cephalosporin Antibacterial Start: 05-11-2023 End: 05-18-2023 cephalexin 500 mg oral capsule Dose : 500 mg = 1 cap(s), Oral, q8h, X 7 day(s), # 21 cap(s), 0 Refill(s), 05/18/23 1:31:00 PM EDT, Pharmacy: [facility]/pharmacy #[id number], UTI (urinary tract infection), 156.5, cm, 05/11/23 13:12:00 EST, Height, 82.9, kg, 05/11/23 13:12:00 EST, Dosing Weight Start Date: 05/11/23 Stop Date: 05/18/23 Status: Ordered EPINEPHrine (13 sources) alpha-Adrenergic Agonist, beta-Adrenergic Agonist, Catecholamine Start: 11-12-2020 EPINEPHrine 0.3 mg injectable kit Dose : 0.3 mg = 1 EA, Intramuscular, AsDirected, PRN Allergic reaction, # 1 kit(s), 0 Refill(s) Start Date: 11/12/20 Status: Ordered Start: 09-17-2020 Epinephrine Ac tive IM September 17, 2020 12:00am Etonogestrel (Nexplanon) 68 mg implant (2 sources) Start: 10-24-2022 Etonogestrel (Nexplanon) 68 mg implant Active 1 IMPLANT subdermal ONCE October 24, 2022 12:00am as a single dose Lactobacillus Combination No.4 (Probiotic) 3 billion cell capsule (7 sources) Start: 12-08-2021 take 3 capsules by mouth once daily Lactobacillus Combination No.4 (Probiotic) 3 billion cell capsule Active 3000 MMU CELLS PO DAILY December 07, 2021 11:00pm administer with a meal Start: 12-08-2021 take 3 capsules by m outh once daily Lactobacillus Combination No.4 (Probiotic) 3 billion cell capsule Active 3000 MMU CELLS PO DAILY December 08, 2021 12:00am administer with a meal levocetirizine dihydrochloride 5 mg oral tablet (2 sources) Histamine-1 Receptor Antagonist Start: 10-24-2022 take 1 tablet by mouth once daily Levocetirizine (Xyzal) 5 mg tablet Active 5 MG PO DAILY October 24, 2022 12:00am meloxicam 15 mg oral tablet (2 sources) Nonsteroidal Anti-inflammatory Drug Start: 10-24-2022 take 15 mg by mouth once daily Meloxicam Active 15 MG PO DAILY October 24, 2022 12:00am Do not take in conjunction with other NSAIDs. Tylenol is okay. metFORMIN hydrochloride 500 mg oral tablet (13 sources) Biguanide Start: 11-09-2022 End: 11-04-2023 MetFORMIN (Eqv-Glucophage XR) 500 mg oral tablet, EXTENDED RELEASE Dose : 1,000 mg = 2 tab(s), Oral, qDay, # 180 tab(s), 3 Refill(s), Pharmacy: [facility], 118, cm, 11/09/22 15:01:00 EDT, Height, kg, 11/09/22 15:01:00 EDT, Dosing Weight Start Date: 11/09/22 Stop Date: 11/04/23 Status: Ordered Start: 10-02-2021 take 1 tablet by consuelo twice daily Metformin Active 1 TABLET PO TWICE A DAY October 02, 2021 12:00am PARoxetine hydrochloride 20 mg oral tablet (13 sources) Serotonin Reuptake Inhibitor Start: 05-10-2023 End: 05-04-2024 PARoxetine 20 mg oral tablet Dose : 20 mg = 1 tab(s), Oral, qDay, # 90 tab(s), 3 Refill(s), Pharmacy: [facility], 156.5, cm, 05/10/23 15:36:00 EST, Height, kg, 05/10/23 15:36:00 EST, Dosing Weight Start Date: 05/10/23 Stop Date: 05/04/24 Status: Ordered Start: 09-17-2020 Paroxetine Hcl Active TAB PO September 17, 2020 12:00am Multivitamins (1 source) Start: 05-10-2023 Multivitamins Oral, qDay, 0 Refill(s) Start Date: 05/10/23 Status: Ordered Multivitamins with Vitamin B Complex, Vitamin C, Minerals and L-Methylfolate oral capsule (3 sources) Start: 05-11-2023 take 1 capsule by mouth once daily Multivitamins with Vitamin B Complex, Vitamin C, Minerals and L-Methylfolate oral capsule Dose = 1 cap(s), Oral, Daily, 0 Refill(s) Start Date: 05/11/23 Status: Ordered spironolactone 100 mg oral tablet (13 sources) Aldosterone Antagonist Start: 10-02-2021 take 1 tablet by mouth twice daily Spironolactone Active 1 TABLET PO TWICE A DAY October 02, 2021 12:00am Start: 01-11-2021 spironolactone 100 mg oral tablet Dose : 200 mg = 2 tab(s), Oral, qDay, 0 Refill(s) Start Date: 01/11/21 Status: Ordered topiramate 25 mg oral capsul e (8 sources) Start: 09-28-2022 topiramate 25 mg oral capsule, extended release Dose : 25 mg = 1 cap(s), Oral, qDay, # 30 cap(s), 0 Refill(s) Start Date: 09/28/22 Status: Ordered Start: 01-14-2022 take 1 tablet by consuelo th once daily at bedtime Topiramate (Topamax) 25 mg tablet Active 25 MG PO DAILY January 14, 2022 1:00am take at bedtime Uqora (1 source) Start: 05-11-2023 Uqora Uqora, 0 Refill(s), 82.9 Start Date: 05/11/23 Status: Ordered Completed/Discontinued Medications Medication Drug Class(es) Dates Sig (Normalized) Sig (Original) azithromycin 250 mg oral tablet (10 sources) Macrolide Antimicrobial Start: 06-15-2021 End: 09-30-2021 Azithromycin Discontinued 0 PO .COMPLEX 6 June 15, 2021 12:00am September 30, 2021 5:10pm take 500 mg today (day 1), then 250 mg for 4 days (days 2-5) PO Norethindrone-E.Est radiol-Iron (10 sources) Estrogen Start: 10-02-2021 End: 12-08-2021 take 1 tablet by mouth once daily Norethindrone-E.Es tradiol-Iron ( ()) 1.5 mg-30 mcg (21)/75 mg (7) tablet Discontinued 1 TABLET PO DAILY October 01, 2021 11:00pm December 08, 2021 1:55pm Start: 10-02-2021 End: 12-08-2021 take 1 tablet by mouth once daily Norethindrone-E.Estradiol-Iron ( Fe ()) 1.5 mg-30 mcg (21)/75 mg (7) tablet Discontinued 1 TABLET PO DAILY October 02, 2021 12:00am December 08, 2021 2:55pm Start: 10-02-2021 take 1 tablet by consuelo once daily Norethindrone-E.Estradiol-Iron ( Fe ()) 1.5 mg-30 mcg (21)/75 mg (7) tablet Active 1 TABLET PO DAILY October 02, 2021 12:00am fluconazole 150 mg oral tablet (2 sources) Azole Antifungal Start: 05-18-2023 End: 05-21-2023 Diflucan 150 mg oral tablet Dose : 150 mg = 1 tab(s), Oral, Daily, # 3 tab(s), 0 Refill(s), Pharmacy: [facility]/pharmacy #[id number], 156.5, cm, 05/17/23 14:46:00 EDT, Height, 81.9, kg, 05/17/23 14:46:00 EDT, Dosing Weight Start Date: 05/18/23 Stop Date: 05/21/23 Status: Ordered miSOPROStol 0.2 mg oral tablet (7 sources) Prostaglandin E1 Analog Start: 12-17-2021 End: 01-07-2022 Misoprostol (Cytotec) 200 mcg tablet Discontinued 400 MCG VAGINAL ONCE 2 December 17, 2021 12:00am January 07, 2022 10:59am Use vaginally the night before procedure. polymyxin b [id number] unt/ml / trimethoprim 1 mg/ml ophthalmic solution (3 sources) Dihydrofolate Reductase Inhibitor Antibacterial, Polymyxin-class Antibacterial Start: 06-17-2022 End: 06-24-2022 Polymyxin B Sulf-Trimethoprim (Polytrim) 10,000 unit- 1 mg/mL drops Discontinued 1 DRP OPHTHALMIC Q3H 10 June 17, 2022 12:00am June 24, 2022 12:04am while awake; do not exceed 6 doses in 24 hours SUMAtriptan 25 mg oral tablet (20 sources) Serotonin-1b and Serotonin-1d Receptor Agonist Start: 08-19-2021 End: 08-21-2023 take 25 mg by mouth once Sumatriptan Succinate Discontinued 25 MG PO ONCE August 19, 2021 12:00am October 24, 2022 10:59am Start: 09-17-2020 End: 08-19-2021 Sumatriptan Succinate Discon tinued TAB PO September 17, 2020 12:00am August 19, 2021 9:12am Problems Active Problems Problem Classification Problem Date Documented Da te Episodic/Chronic Abdominal pain (20 sources) Pain in pelvis; Translations: [Pelvic and perineal pain] 10-10-2021 Episodic Acute bronchitis (11 sources) Acute bronchitis; Translations: [Acute bronchitis, unspecified] Episodic Anxiety disorders (13 sources) Anxiety; Translations: [Anxiety disorder, unspecified] 08-30-2021 Chronic Contraceptive and procreative management (20 sources) Patient encounter status; Translations: [Encounter for insertion of intrauterine contraceptive device] Episodic Genitourinary symptoms and ill-defined conditions (20 sources) Blood in urine; Translations: [Hematuria, unspecified] Onset: 05-11-2023 Episodic Headache; including migraine (13 sources) Migraine with aura; Translations: [Migraine with aura, not intractable, without status migrainosus] 08-30-2021 Chronic Headache; including migraine (10 sources) Headache; Translations: [Headache] 02-06-2013 Episodic Immunizations and screening for infectious disease (20 sources) Contact with or exposure to other viral diseases; Translations: [Exposure to COVID-19 virus] Episodic Inflammation; infection of eye (except that caused by tuberculosis or sexually transmitteddisease) (3 sources) Acute conjunctivitis; Translations: [Unspecified acute conjunctivitis, left eye] 06-17-2022 Episodic Menstrual disorders (13 sources) Irregular periods; Translations: [Irregular menstruation, unspecified] 08-30-2021 Chronic Mood disorders (3 sources) Major depressive disorder 09-28-2022 Chronic Other bone disease and musculoskeletal deformities (20 sources) Segmental and somatic dysfunction; Translations: [Segmental and somatic dysfunction of cervical region] 09-17-2020 Episodic Other bone disease and musculoskeletal deformities (4 sources) Segmental and somatic dysfunction of cervical region; Translations: [Nonallopathic lesions, cervical region] Episodic Other bone disease and musculoskeletal deformities (4 sources) Segmental and somatic dysfunction of lumbar region; Translations: [Nonallopathic lesions, lumbar region] Episodic Other bone disease and musculoskeletal deformities (4 sources) Segmental and somatic dysfunction of pelvic region; Translations: [Nonallopathic lesions, pelvic region] Episodic Other bone disease and musculoskeletal deformities (4 sources) Segmental and somatic dysfunction of thoracic region; Translations: [Nonallopathic lesions, thoracic region] Episodic Other connective tissue disease (2 sources) Impingement syndrome of right shoulder; Translations: [Other specified disorders of bursae and tendons in shoulder region] 10-24-2022 Episodic Other endocrine disorders (13 sources) Polycystic ovary syndrome; Translations: [Polycystic ovarian syndrome] 08-30-2021 Chronic Other female genital disorders (2 sources) Vaginal discharge 05-17-2023 Episodic Other female genital disorders (1 source) Noninflammatory disorder of the vagina; Translations: [Other specified noninflammatory disorders of vagina] Episodic Other female genital disorders (2 sources) Other specified noninflammatory disorders of vagina; Translations: [Other specified noninflammatory disorders of vagina] Onset: 05-17-2023 Episodic Other gastrointestinal disorders (3 sources) Constipation 02-21-2020 Episodic Other gastrointestinal disorders (3 sources) Heartburn 11-12-2020 Episodic Other inflammatory condition of skin (3 sources) Itching of skin 11-09-2022 Episodic Other non-traumatic joint disorders (3 sources) Joint pain 09-28-2022 Episodic Other nutritional; endocrine; and metabolic disorders (3 sources) Obesity 04-10-2019 Chronic Other nutritional; endocrine; and metabolic disorders (3 sources) Weight gain 09-28-2022 Episodic Other screening for suspected conditions (not mental disorders or infectious disease) (1 source) Encounter for screening mammogram for malignant neoplasm of breast; Translations: [Encounter for screening mammogram for malignant neoplasm of breast] Onset: 12-27-2023 Episodic Other skin disorders (13 sources) Acne; Translations: [Acne, unspecified] 08-30-2021 Episodic Residual codes; unclassified (13 sources) Insomnia; Translations: [Insomnia, unspecified] 08-30-2021 Episodic Spondylosis; intervertebral disc disorders; other back problems (20 sources) Backache; Translations: [Dorsalgia, unspecified] Episodic Unclassified (9 sources) Patient encounter status 09-28-2022 Unclassified (3 sources) Skin finding 2020 Urinary tract infections (9 sources) Urinary tract infectious disease; Translations: [Urinary tract infection, site not specified] 09-30-2021 Episodic Past or Other Problems Problem Classification Problem Date Documented Da te Episodic/Chronic Diabetes mellitus without complication (7 sources) Hyperglycemia; Translations: [Prediabetes] Onset: 11-24-2022 11-09-2022 Episodic Results Test Name Value Interpretation Reference Range Facility SCRN MAMM (CAD)W/MAXIM BILATo n 12-05-2023 SCRN MAMM (CAD)W/MAXIM BILAT [facility] Imaging Services [address] [place] [address] SCRN MAMM (CAD)W/MAXIM BILAT MR#: [id number] Acct: [id number] Name: YARI HERNANDEZ Rep #: [id number] : 1985 F 38 From: Red fagan MD PCP: AMAURY David Status: [facility] Study: SCRN MAMM (CAD)W/MAXIM BILAT Date of Exam: 03/29 Exam# [id number] Ordering Dr: Franci Pena NP GENERAL DISTILLERY WORKER -C [id number] MAMMOGRAPHY - BILATERAL SCREENING REASON FOR EXAM: Female, 38 years old. Routine annual screening examination. PERTINENT HISTORY: Grandmother with breast cancer. TECHNIQUE: Digital bilateral breast maxim (3D mammographic acquisition) in the CC and MLO projections. 2-D mediolateral oblique (MLO) and craniocaudad (CC) views of both breasts were obtained. CAD: Full Field Digital Mammography with Computer Added Detection was performed. COMPARISON: Comparison is made with prior study 2022. FINDINGS: Breast Composition: There are scattered areas of fibroglandular density. There are no dominant masses or suspicious calcifications. No other significant abnormalities are identified. There has been no significant change since the prior study. BI/SCRN MAMM (CAD)W/MAXIM BILAT IMPRESSION: Stable bilateral screening mammogram. Yearly follow-up mammogram recommended. (A) ASSESSMENT CATEGORY: BIRADS Category 1: Negative. A letter regarding these results will be sent to the patient by the facility within 30 days. Approximately 10% of breast cancers are not detected by mammography. A normal mammogram should not delay biopsy of a clinically suspicious abnormality. [id number] Electronically Signed: Red Zimmer MD at 8:39 EDT Reading Location ID and State: [facility] / [place] , Service support , CC: AMAURY Pena Buck Swamper: Signed Normal [facility] [id number] 06-01-2023 HSV 1 IgG Type Spec <0.91 Normal 0.00-0.90 [facility] ([place]) Comment on above: Result Comment: Nega tive <0.91 Equivocal 0.91 - 1.09 Positive >1.09 Note: Negative indicates no antibodies detected to HSV-1. Equivocal may suggest early infection. If clinically appropriate, retest at later date. Positive indicates antibodies detected to HSV-1. Performed By: #### 1 [id number] #### [address] [address] HSV 2 IgG Type Spec 16.70 Index High 0.00-0.90 [facility] ([place]) Comment on above: Result Comment: Nega tive <0.91 Equivocal 0.91 - 1.09 Positive >1.09 HSV-2 Antibody Interpretation: Current guidelines and recommendations do not recommend routine screening for HSV-2 in asymptomatic individuals, including those that are . A negative antibody result indicates no detectable antibodies to HSV-2 were found. If recent exposure is suspected, retest in 4 to 6 weeks. Equivocal samples should be retested in 4 to 6 weeks. A positive result indicates the presence of detectable IgG antibody to HSV-2. FALSE POSITIVE RESULTS MAY OCCUR. Repeat testing, or testing by a different method, may be indicated in some settings (e.g. patients with low likelihood of HSV infection). If clinically appropriate, retest 4 to 6 weeks later. HSV-2 IgG antibody testing results should be clinically correlated. Performed At: [facility] [id number] Breanne Cannon PhD Ph:[phone] Performed By: #### 1 [id number] #### [address] [address] CTPCRon 05-18-2023 C. trachomatis Interp Normal See CT Interp N [facility] ([place]) Comment on above: Result Comment: C. t rachomatis DNA not detected. Specimen is presumptive negative for C. trachomatis. A negative result does not preclude C. trachomatis infection because results depend on adequate specimen collection, absence of inhibitors, and sufficient DNA to be detected. See CT Interp N Performed By: #### N GPCR1, CTPCR #### [address] [address] C.trachomatis PCR Negative Normal Negative [facility] ([place]) Comment on above: Result Comment: Mole cular (PCR) assay performed on the Heidi Justino 4800 system. Performed By: #### N GPCR1, CTPCR #### [address] [address] Chlam Source Cervix Normal [facility] ([place]) Comment on above: Performed By: #### N GPCR1, CTPCR #### [address] [address] [id number] 05-18-2023 GC PCR Source Cervix Normal [facility] ([place]) Comment on above: Performed By: #### N GPCR1, CTPCR #### [address] [address] N. gonorrhoeae (PCR) Negative Normal Negative [facility] ([place]) Comment on above: Result Comment: Mole cular (PCR) assay performed on the Heidi Justino 4800 System. Performed By: #### N GPCR1, CTPCR #### [address] [address] N. gonorrhoeae Interp Normal See NG Interp N [facility] ([place]) Comment on above: Result Comment: N. g onorrhoeae DNA not detected. Specimen is presumptive negative for N. gonorrhoeae. A negative result does not preclude Neisseria gonorrhoeae infection because results depend on adequate specimen collection, absence of inhibitors, and sufficient DNA to be detected. See NG Interp N Performed By: #### N GPCR1, CTPCR #### [place] [address] LABORATORYOrdered By: Santos Murdock on 05-17-2023 C. trachomatis DNA APRIL+probe Ql (Unsp spec) Negative 2 (05/17/23 4:57 PM) Normal Negative [facility] Comment on above: Interpretive Data: M olecular (PCR) assay performed on the Heidi Justino 4800 system. C. trachomatis DNA APRIL+probe Ql (Unsp spec) C. trachomatis DNA not detected. Specimen is presumptive negative forC. trachomatis.A negative result does not preclude C. trachomatis infection becauseresults depend on adequate specimen collection, absence of inhibitors,and sufficient DNA to be detected. Normal See CT Interp N AH [facility]/Sero SS N. gonorrhoeae DNA APRIL+probe Ql (Unsp spec) Negative 1 (05/17/23 4:57 PM) Normal Negative AH [facility] SS Comment on above: Interpretive Data: M olecular (PCR) assay performed on the Heidi Justino 4800 System. N. gonorrhoeae DNA APRIL+probe Ql (Unsp spec) N. gonorrhoeae DNA not detected. Specimen is presumptive negative forN. gonorrhoeae. A negative result does not preclude Neisseria gonorrhoeaeinfection because results depend on adequate specimen collection, absenceof inhibitors, and sufficient DNA to be detected. Normal See NG Interp N AH [facility] Laboratory - Specimen inform ationOrdered By: Sangita Murdock on 05-17-2023 Specimen source Nom (Unsp spec) Cervix (05/17/23 4:57 PM) Normal AH [facility]Sero SS No Panel InformationOrdered By: Alicia Villalpando on 05-17-2023 Affirm Pathogens DNA Direct Probe Niurka species DNA Probe Positive Gardnerella vaginalis DNA Probe Negative Trichomonas vaginalis DNA Probe Negative [facility] No Panel Informationon 05-16 Culture Urine 10,000 - 50,000 cfu/ ml Multiple bacterial morphotypes present. Probable Contamination. Suggest recollection if clinically indicated. [facility] Work Phone: No Panel Informationon 05-10 Culture Urine <10,000 cfu/ml. No Significant growth. Sensitivity not indicated. [facility] Work Phone: Office Visit Reporton [address] [facility] [address] [place] [address] OFFICE VISIT Date of Service: 04/14/23 MR#: [id number] Acct: [id number] Patient: YARI HERNANDEZ Rep #: [id number] : 1985 Provider: GIOVANNI Torres Age/Sex: 37/F Location: [facility] Status: Signed Employer Purchased Covid Test Note: Patient here today for Covid Testing, requested by their Employer. Assessment and Plan Plan Details Goals Barriers: Goals Decrease pain Decrease spasm Improve ROM 04/14/23 0949 Date Rex DAVILA Cosigner Signature: Date (if applicable) CC: Normal [facility] Chlamydia trachomatis rRNA d etection by probe and target amplification methodOrdered By: Eliana Aleman on 11-24-2022 C. trachomatis rRNA APRIL+probe Ql (Unsp spec) Negative Negative [facility] HIV 1 and HIV-2 antibody ass ay with HIV-1 p24 antigen detectionOrdered By: Eliana Aleman on 11-24-2022 HIV 1+2 Ab+HIV1 p24 Ag IA Ql Non-Reactive Nonreactive [facility] Laboratory - Microbiology an d Antimicrobial susceptibilityOrdered By: Eliana Aleman on 11-24-2022 N. gonorrhoeae DNA APRIL+probe Ql (Unsp spec) Negative Negative [facility] Comment on above: Performed at: =[address] [place] [id number] Director: Marisol Garcia MD, Phone: [phone] No Panel InformationOrdered By: Eliana Aleman on 11-24-2022 Hepatitis B Surface Antigen Non-Reactive Nonreactive [facility] Hepatitis C Antibody Non-Reactive Nonreactive [facility] Comment on above: Non Reactive: < 0.8 Equivocal: >/= 0.8 to < 1.0 Reactive: >/= 1.0The [facility] recommends that a reactive/equivocal HCV antibody result be followed up by the HCV Nucleic Acid Amplificationtest ([id number]) Herpes Simplex Virus I IgG Antibody 0.94 index 0.00-0.90 [facility] Comment on above: A second sample shou ld be collected and tested no less than2-4 weeks. Negative <0.91 Equivocal 0.91 - 1.09 Positive >1.09 Note: Negative indicates no antibodies detected to HSV-1. Equivocal may suggest early infection. If clinically appropriate, retest at later date. Positive indicates antibodies detected to HSV-1. No Panel Informationon 11-24 POC Trichomonas (Rapid) Negative [facility] Serum Treponema species anti body detectionOrdered By: Eliana Aleman on 11-24-2022 Treponema sp Ab Ql (S) Non-Reactive [facility] Serum herpes simplex virus 2 antibody assay by immunoassay (units/volume)Ordered By: Eliana Aleman on 11-24-2022 HSV 2 Ab IA Qn (S) < 0.91 index 0.00-0.90 [facility] Comment on above: Negative <0.91 Equiv ocal 0.91 - 1.09 Positive >1.09 HSV-2 Antibody Interpretation: Negative indicates no detectable antibodies to HSV-2 were found. If recent exposure is suspected, retest in 4-6 weeks. Equivocal samples should be retested in 4-6 weeks. Positive indicates the presence of detectable IgG antibody to HSV-2. False positive results may occur. Repeat testing, or testing by a different method, may be indicated in some settings (e.g. patients with low likelihood of HSV infection). If clinically appropriate, retest 4-6 weeks later.Performed at: - [facility] [id number] [place], [place] [id number] Director: Davis Raymundo PhD, Phone: [phone] Absolute lymphocyte countOrd ered By: HEALTH ASSESSMENT on 10-04-2022 Lymphocytes Auto (Unsp spec) [#/Vol] 2.19 10*3/uL 0.83-4.51 [facility] Absolute reticulocyte countO rdered By: HEALTH ASSESSMENT on 10-04-2022 Reticulocytes (Bld) [#/Vol] 0.00 10*3/uL 0-5 [facility] Basophil percentageOrdered B y: HEALTH ASSESSMENT on 10-04-2022 Basophil percentage 3.9 mg/dL 2.5-4.9 [facility] Bilirubin [Mass/Vol] 0.30 mg/dL 0.20-1.00 [facility] Comment on above: For patients on eltr ombopag therapy, use of Dimension [place] TBIL is not recommended. Chloride [Moles/Vol] 106 mmol/L 98-107 [facility] Cholesterol [Mass/Vol] 156 mg/dL <200 [facility] Comment on above: <200 mg/dL Desirable 200-240 mg/dL Borderline >240 mg/dL High Risk Glucose [Mass/Vol] 121 mg/dL 74-106 [facility] Comment on above: Fasting Glucose resu lt from 100 to 125 mg/dL suggests IMPAIRED HOMEOSTASIS per A.D.A. criteria. LDH [Catalytic activity/Vol] 116 U/L 84-246 [facility] Neutrophils (Bld) [#/Vol] 3.6 10*3/uL 2.0-7.7 [facility] Potassium [Moles/Vol] 3.6 mmol/L 3.5-5.1 [facility] Protein [Mass/Vol] 7.6 g/dL 6.4-8.2 [facility] Sodium [Moles/Vol] 139 mmol/L 136-145 [facility] Triglyceride [Mass/Vol] 101 mg/dL <199 [facility] Comment on above: The drugs N-Acetylcy steine and Metamizole may falsely depress this assay.Serum Triglycerides Reference Interval Normal <150 mg/dL Borderline high 150 - 199 mg/dL High 200 - 499 mg/dL Very High > or = 500 mg/dL WBC (Bld) [#/Vol] 6.7 10*3/uL 4.4-11.0 [facility] Bilirubin Test strip Ql (U)O rdered By: HEALTH ASSESSMENT on 10-04-2022 Bilirubin Ql (U) Negative Negative [facility] Blood erythrocytes count (nu mber/volume)Ordered By: HEALTH ASSESSMENT on 10-04-2022 RBC (Bld) [#/Vol] 4.12 10*6/uL 4.2-5.4 [facility] Blood hemoglobin measurement (mass/volume)Ordered By: HEALTH ASSESSMENT on 10-04-2022 Hemoglobin (Bld) [Mass/Vol] 12.5 g/dL 12.0-15.0 [facility] Blood platelet mean volumeOr dered By: HEALTH ASSESSMENT on 10-04-2022 Platelet mean volume (Bld) [Entitic vol] 9.4 fL 6.2-12.0 [facility] Determination of erythrocyte mean corpuscular volume (MCV)Ordered By: HEALTH ASSESSMENT on 10-04-2022 MCV (RBC) [Entitic vol] 93.0 fL 81-99 [facility] Direct bilirubinOrdered By: HEALTH ASSESSMENT on 10-04-2022 Bilirubin.direct [Mass/Vol] 0.12 mg/dL 0.00-0.30 [facility] Hematocrit Auto (Bld) [Volum e fraction]Ordered By: HEALTH ASSESSMENT on 10-04-2022 Hematocrit (Bld) [Volume fraction] 38.3 % 37-47 [facility] Ketones Test strip Ql (U)Ord ered By: HEALTH ASSESSMENT on 10-04-2022 Ketones Ql (U) Negative Negative [facility] Laboratory - Chemistry and C hemistry - challengeOrdered By: HEALTH ASSESSMENT on 10-04-2022 ALP [Catalytic activity/Vol] 59 U/L 45-117 [facility] ALT [Catalytic activity/Vol] 35 U/L 13-56 [facility] Cholesterol.total/Chol esterol in HDL [Mass ratio] 3.80 {ratio} [facility] CO2 [Moles/Vol] 30.0 mmol/L 21.0-32.0 [facility] Globulin (S) [Mass/Vol] 4.1 g/dL 2.2-4.2 [facility] Urea nitrogen/Creatinine [Mass ratio] 10.5 mg/mg 10-20 [facility] Laboratory - Chemistry and C hemistry - challengeOrdered By: Franci Pena on 10-04-2022 Free T4 [Mass/Vol] 0.86 ng/dL 0.76-1.46 [facility] Laboratory - Hematology and Cell countsOrdered By: HEALTH ASSESSMENT on 10-04-2022 Erythrocyte distribution width (RBC) [Entitic vol] 51.3 fL 35.1-43.9 [facility] Erythrocyte distribution width (RBC) [Ratio] 15.1 % 11.6-14.6 [facility] MCH (RBC) [Entitic mass] 30.3 pg 27.0-32.0 [facility] Nucleated RBC/100 WBC (Bld) [Ratio] 0 % 0-5 [facility] MCHC Auto (RBC) [Mass/Vol]Or dered By: HEALTH ASSESSMENT on 10-04-2022 MCHC (RBC) [Mass/Vol] 32.6 g/dL 32-36 [facility] Nitrite Test strip Ql (U)Ord ered By: HEALTH ASSESSMENT on 10-04-2022 Nitrite Ql (U) Negative Negative [facility] No Panel InformationOrdered By: Franci Pena on 10-04-2022 Anti-Nuclear Antibody Screen Negative Negative [facility] Comment on above: Performed at: [place] [id number] Director: Davis Raymundo PhD, Phone: [phone] Thyroid Stimulating Hormone (TSH) 1.95 uIU/mL 0.358-3.74 [facility] No Panel InformationOrdered By: HEALTH ASSESSMENT on 10-04-2022 Estimated GFR (MDRD) Amer 111 mL/min >60 [facility] Comment on above: GFR Calc Estimated GFR (MDRD) Non-Af Amer 92 mL/min >60 [facility] Comment on above: Non- GFR Calc Platelets bldOrdered By: [facility] ASSESSMENT on 10-04-2022 Platelets (Bld) [#/Vol] 317 10*3/uL 150-450 [facility] Protein Test strip Ql (U)Ord ered By: HEALTH ASSESSMENT on 10-04-2022 Protein Ql (U) 15 mg/dl Negative [facility] Segmented neutrophils/100 WB C Auto (Bld)Ordered By: HEALTH ASSESSMENT on 10-04-2022 Segmented neutrophils/100 WBC (Bld) 53.3 % 47-70 [facility] Serum or plasma albumin shay urement (mass/volume)Ordered By: HEALTH ASSESSMENT on 10-04-2022 Albumin [Mass/Vol] 3.5 g/dL 3.2-5.0 [facility] Serum or plasma albumin/glob ulin mass ratioOrdered By: HEALTH ASSESSMENT on 10-04-2022 Albumin/Globulin [Mass ratio] 0.9 {ratio} 0.9-2.4 [facility] Serum or plasma calcium shay urement (mass/volume)Ordered By: HEALTH ASSESSMENT on 10-04-2022 Calcium [Mass/Vol] 8.8 mg/dL 8.5-10.1 [facility] Serum or plasma cholesterol in HDL measurement (mass/volume)Ordered By: HEALTH ASSESSMENT on 10-04-2022 Cholesterol in HDL [Mass/Vol] 41 mg/dL >40 [facility] Comment on above: The drugs N-Acetylcy steine and Metamizole may falsely depress this assay. Reference Range HDL <40 mg/dL Low HDL Cholesterol HDL >or= 60 mg/dL High HDL Cholesterol Serum or plasma cholesterol in VLDL measurement (mass/volume)Ordered By: HEALTH ASSESSMENT on 10-04-2022 Cholesterol in VLDL [Mass/Vol] 20 mg/dL 5-40 [facility] Serum or plasma creatinine m easurement (mass/volume)Ordered By: HEALTH ASSESSMENT on 10-04-2022 Creatinine [Mass/Vol] 0.76 mg/dL 0.55-1.02 [facility] Comment on above: The validity of the calculated GFR & GFRAA in patients over 70 years has not been determined. Clinical correlation is essential. Serum or plasma low density lipoprotein (LDL) cholesterol measurement (mass/volume)Ordered By: HEALTH ASSESSMENT on 10-04-2022 Cholesterol in LDL [Mass/Vol] 95 mg/dL 0-130 [facility] Serum or plasma urea nitroge n measurement (mass/volume)Ordered By: HEALTH ASSESSMENT on 10-04-2022 Urea nitrogen [Mass/Vol] 8 mg/dL 7-18 [facility] Serum or plasma uric acid me asurement (mass/volume)Ordered By: HEALTH ASSESSMENT on 10-04-2022 Urate [Mass/Vol] 5.5 mg/dL 2.6-6.0 [facility] Comment on above: The drugs N-Acetylcy steine and Metamizole may falsely depress this assay. Serum rheumatoid factor dete ctionOrdered By: Franci Pena on 10-04-2022 Rheumatoid factor Ql (S) < 10.0 IU/mL <15 [facility] Thin prep Papanicolaou smear with manual screeningOrdered By: HEALTH ASSESSMENT on 10-04-2022 Thin prep Papanicolaou smear with manual screening 21 U/L 15-37 [facility] Thin prep Papanicolaou smear with manual screening 3 5-15 [facility] Urine blood detectionOrdered By: HEALTH ASSESSMENT on 10-04-2022 RBC Ql (U) Negative Negative [facility] Urine clarityOrdered By: Lisa [facility] ASSESSMENT on 10-04-2022 Clarity (U) Clear Clear [facility] Urine color determinationOrd ered By: HEALTH ASSESSMENT on 10-04-2022 Color (U) Yellow Yellow [facility] Urine glucose detectionOrder ed By: HEALTH ASSESSMENT on 10-04-2022 Glucose Ql (U) Normal mg/dl Normal [facility] Urine leukocyte esterase det ection by dipstickOrdered By: HEALTH ASSESSMENT on 10-04-2022 Leukocyte esterase Test strip Ql (U) Negative Negative [facility] Urine pHOrdered By: HEALTH A SSESSMENT on 10-04-2022 pH (U) 8.0 [pH] 5.0 - 8.0 [facility] Urine specific gravity measu rementOrdered By: HEALTH ASSESSMENT on 10-04-2022 Specific gravity (U) [Rel density] 1.010 1.002-1.030 [facility] Urobilinogen Auto test strip Ql (U)Ordered By: HEALTH ASSESSMENT on 10-04-2022 Urobilinogen Ql (U) Normal mg/dl Normal [facility] Basophil percentageOrdered B y: Dr. Cabrera on 03-09-2022 Bilirubin [Mass/Vol] 0.30 mg/dL 0.20-1.00 [facility] Comment on above: For patients on eltr ombopag therapy, use of Dimension [place] TBIL is not recommended. Chloride [Moles/Vol] 108 mmol/L 98-107 [facility] Glucose [Mass/Vol] 85 mg/dL 74-106 [facility] Potassium [Moles/Vol] 3.8 mmol/L 3.5-5.1 [facility] Comment on above: Slight Hemolysis, Re sult may be falsely increased. Protein [Mass/Vol] 8.2 g/dL 6.4-8.2 [facility] Sodium [Moles/Vol] 139 mmol/L 136-145 [facility] Direct bilirubinOrdered By: Dr. Cabrera on 03-09-2022 Bilirubin.direct [Mass/Vol] 0.06 mg/dL 0.00-0.30 [facility] Laboratory - Chemistry and C hemistry - challengeOrdered By: Dr. Cabrera on 03-09-2022 ALP [Catalytic activity/Vol] 55 U/L 45-117 [facility] ALT [Catalytic activity/Vol] 34 U/L 13-56 [facility] CO2 [Moles/Vol] 26.0 mmol/L 21.0-32.0 [facility] Globulin (S) [Mass/Vol] 4.2 g/dL 2.2-4.2 [facility] Urea nitrogen/Creatinine [Mass ratio] 13.7 mg/mg 10-20 [facility] No Panel InformationOrdered By: Dr. Cabrera on 03-09-2022 Estimated GFR (MDRD) Amer 105 mL/min >60 [facility] Comment on above: GFR Calc Estimated GFR (MDRD) Non-Af Amer 87 mL/min >60 [facility] Comment on above: Non- GFR Calc Serum or plasma albumin shay urement (mass/volume)Ordered By: Dr. Cabrera on 03-09-2022 Albumin [Mass/Vol] 4.0 g/dL 3.2-5.0 [facility] Serum or plasma calcium shay urement (mass/volume)Ordered By: Dr. Cabrera on 03-09-2022 Calcium [Mass/Vol] 9.5 mg/dL 8.5-10.1 [facility] Serum or plasma creatinine m easurement (mass/volume)Ordered By: Dr. Cabrera on 03-09-2022 Creatinine [Mass/Vol] 0.80 mg/dL 0.55-1.02 [facility] Comment on above: The validity of the calculated GFR & GFRAA in patients over 70 years has not been determined. Clinical correlation is essential. Serum or plasma urea nitroge n measurement (mass/volume)Ordered By: Dr. Cabrera on 03-09-2022 Urea nitrogen [Mass/Vol] 11 mg/dL 7-18 [facility] Thin prep Papanicolaou smear with manual screeningOrdered By: Dr. Cabrera on 03-09-2022 Thin prep Papanicolaou smear with manual screening 22 U/L 15- [facility] Comment on above: Slight Hemolysis, Re sult may be falsely increased. Thin prep Papanicolaou smear with manual screening 5 5-15 [facility] Laboratory - Chemistry and C hemistry - challengeon 01-14-2022 HCG ( test) Ql (U) Negative [facility] Laboratory - Chemistry and C hemistry - challengeon 12-08-2021 HCG ( test) Ql (U) Negative [facility] Cervical or vagninal specime n microscopic examination by cytology stain (reported ason 11-18-2021 Cytology report Cyto stain Doc (Cvx/Vag) Comment . [facility] Work Phone: Comment on above: The Pap smear is a s creening test designed to aid in thedetection of premalignant and malignant conditions of theuterine cervix. It is not a diagnostic procedure andshould not be used as the sole means of detecting cervicalcancer. Both false-positive and false-negative reports dooccur. Chlamydia trachomatis rRNA d etection by probe and target amplification methodon 11-18-2021 C. trachomatis rRNA APRIL+probe Ql (Unsp spec) Negative Negative [facility] Work Phone: Detection in cervical specim en of any of human papilloma virus (HPV) 16, 18, 31, 33,on 11-18-2021 HPV 16+18+31+33+35+39+45+5 1+52+56+58+59+66+68 DNA Probe+sig amp Ql (Cvx) Negative Negative [facility] Work Phone: Comment on above: This nucleic acid am plification test detects fourteen high- risk HPV types (16,18,31,33,35,39,45,51,52,56,58,59,66,68)without differentiation.Performed at: - [facility] [id number] [place], [place] [id number] Director: Manny Parekh MD, Phone: [phone] at: [facility] [address] [id number] Director: Marisol Garcia MD, Phone: [phone] at: =[facility] [id number] Director: Marisol Garcia MD, Phone: [phone] Laboratory - Cytologyon 11-04 Desktop Manager Cyto stain Nom (Cvx/Vag) [ID] Comment . [facility] Work Phone: Comment on above: Holley Cabrera, Cytot echnologist Laboratory - Microbiology an d Antimicrobial susceptibilityon 11-18-2021 N. gonorrhoeae DNA APRIL+probe Ql (Unsp spec) Negative Negative [facility] Work Phone: Comment on above: Performed at: =G - L [address] [id number] Director: Marisol Garcia MD, Phone: [phone] Laboratory - Miscellaneous t estson 11-18-2021 Service comment (Unsp spec) [Interp] Comment . [facility] Work Phone: Comment on above: This liquid based Th inPrep(R) pap test was screened withthe use of an image guided system. Service comment (Unsp spec) [Interp] . . [facility] Work Phone: No Panel Informationon 11-18 Pap Smear QC Review Comment . [facility] Work Phone: Comment on above: Radha Charlton totechnologist (ASCP) Pathology report final diagnosis Narrative Comment . [facility] Work Phone: Comment on above: NEGATIVE FOR INTRAEP ITHELIAL LESION OR MALIGNANCY.THIS SPECIMEN WAS RESCREENED PART OF OUR PRODUCTION CONTROL ANALYST PROGRAM. Laboratory - Microbiology an d Antimicrobial susceptibilityon 10-06-2021 SARS-CoV-2 (COVID-19) RNA APRIL+probe Ql (Unsp spec) Detected [facility] Work Phone: [phone] No Panel Informationon 10-06 POC Nasal Swab Influenza A,B Not detected [facility] Work Phone: POC Nasal Swab RSV Not detected [facility] Work Phone: Absolute lymphocyte counton 10-02-2021 Lymphocytes Auto (Unsp spec) [#/Vol] 2.22 10*3/uL 0.83-4.51 [facility] Work Phone: Basophil percentageon 2021 Basophil percentage 0 SEEN /hpf 0-5 [facility] Work Phone: Basophils/100 WBC (Bld) 0.7 % 0-1 [facility] Work Phone: Bilirubin [Mass/Vol] 0.20 mg/dL 0.20-1.00 [facility] Work Phone: [phone] Comment on above: For patients on eltr ombopag therapy, use of Dimension [place] TBIL is not recommended. Chloride [Moles/Vol] 109 mmol/L 98-107 [facility] Work Phone: Eosinophils/100 WBC (Bld) 7.2 % 0-5 [facility] Work Phone: Glucose [Mass/Vol] 107 mg/dL 74-106 [facility] Work Phone: Comment on above: Fasting Glucose resu lt from 100 to 125 mg/dL suggests IMPAIRED HOMEOSTASIS per A.D.A. criteria. Neutrophils (Bld) [#/Vol] 3.9 10*3/uL 2.0-7.7 [facility] Work Phone: Neutrophils/100 WBC (Bld) 55.0 % 47-70 [facility] Work Phone: Potassium [Moles/Vol] 4.1 mmol/L 3.5-5.1 [place] [facility] Work Phone: Protein [Mass/Vol] 7.6 g/dL 6.4-8.2 [facility] Work Phone: Sodium [Moles/Vol] 138 mmol/L 136-[address] [facility] Work Phone: WBC (Bld) [#/Vol] 7.1 10*3/uL 4.4-11.0 [facility] Work Phone: Beta hCG serum qualon 2021 Beta HCG ( test) Ql Negative [facility] Work Phone: Bilirubin Test strip Ql (U)o n 10-02-2021 Bilirubin Ql (U) Negative Negative [facility] Work Phone: Blood erythrocytes count (nu mber/volume)on 10-02-2021 RBC (Bld) [#/Vol] 4.30 10*6/uL 4.2-5.4 [facility] Work Phone: [phone] Blood hemoglobin measurement (mass/volume)on 10-02-2021 Hemoglobin (Bld) [Mass/Vol] 11.6 g/dL 12.0-15.0 [facility] Work Phone: Blood lymphocytes/100 leukoc yteson 10-02-2021 Lymphocytes/100 WBC (Bld) 31.1 % 19-41 [facility] Work Phone: [phone] Blood monocytes/100 leukocyt eson 10-02-2021 Monocytes/100 WBC (Bld) 5.9 % 0-10 [facility] Work Phone: Blood platelet mean volumeon 10-02-2021 Platelet mean volume (Bld) [Entitic vol] 9.2 fL 6.2-12.0 [facility] Work Phone: Determination of erythrocyte mean corpuscular volume (MCV)on 10-02-2021 MCV (RBC) [Entitic vol] 84.9 fL 81-99 [facility] Work Phone: Hematocrit Auto (Bld) [Volum e fraction]on 10-02-2021 Hematocrit (Bld) [Volume fraction] 36.5 % 37-47 [facility] Work Phone: Ketones Test strip Ql (U)on 10-02-2021 Ketones Ql (U) Negative Negative [facility] Work Phone: Laboratory - Chemistry and C hemistry - challengeon 10-02-2021 ALP [Catalytic activity/Vol] 40 U/L 45-117 [facility] Work Phone: ALT [Catalytic activity/Vol] 26 U/L 13-56 [facility] Work Phone: CO2 [Moles/Vol] 24.0 mmol/L 21.0-32.0 [facility] Work Phone: Globulin (S) [Mass/Vol] 4.0 g/dL 2.2-4.2 [facility] Work Phone: Urea nitrogen/Creatinine [Mass ratio] 12.7 mg/mg 10-20 [facility] Work Phone: Laboratory - Hematology and Cell countson 10-02-2021 Erythrocyte distribution width (RBC) [Entitic vol] 53.5 fL 35.1-43.9 [facility] Work Phone: [phone] Erythrocyte distribution width (RBC) [Ratio] 17.2 % 11.6-14.6 [facility] Work Phone: Immature granulocytes/100 WBC (Bld) 0.100 % 0.0-0.9 [facility] Work Phone: Comment on above: IG% - Immature Granu locytes (promyelocytes, myelocytes and metamyelocytes) > 1% indicates that a LEFT SHIFT is Present. MCH (RBC) [Entitic mass] 27.0 pg 27.0-32.0 [facility] Work Phone: Nucleated RBC/100 WBC (Bld) [Ratio] 0 % 0-5 [facility] Work Phone: MCHC Auto (RBC) [Mass/Vol]on 10-02-2021 MCHC (RBC) [Mass/Vol] 31.8 g/dL 32-36 [facility] Work Phone: Mucus LM Ql (Urine sed)on Mucus Ql (Urine sed) 0 SEEN /hpf [facility] Work Phone: Nitrite Test strip Ql (U)on 10-02-2021 Nitrite Ql (U) Negative Negative [facility] Work Phone: No Panel Informationon 10-02 Estimated Creatinine Clearance Calc 84.25 ml/min [facility] Work Phone: Estimated GFR (MDRD) Amer 121 mL/min >60 [facility] Work Phone: Comment on above: GFR Calc Estimated GFR (MDRD) Non-Af Amer 100 mL/min >60 [facility] Work Phone: Comment on above: Non- GFR Calc Platelets bldon 10-02-2021 Platelets (Bld) [#/Vol] 359 10*3/uL 150-450 [facility] Work Phone: Protein Test strip Ql (U)on 10-02-2021 Protein Ql (U) Negative Negative [facility] Work Phone: Serum or plasma albumin shay urement (mass/volume)on 10-02-2021 Albumin [Mass/Vol] 3.6 g/dL 3.2-5.0 [facility] Work Phone: Serum or plasma albumin/glob ulin mass ratioon 10-02-2021 Albumin/Globulin [Mass ratio] 0.9 {ratio} 0.9-2.4 [facility] Work Phone: Serum or plasma calcium shay urement (mass/volume)on 10-02-2021 Calcium [Mass/Vol] 9.4 mg/dL 8.5-10.1 [facility] Work Phone: Serum or plasma creatinine m easurement (mass/volume)on 10-02-2021 Creatinine [Mass/Vol] 0.71 mg/dL 0.55-1.02 [facility] Work Phone: Comment on above: The validity of the calculated GFR & GFRAA in patients over 70 years has not been determined. Clinical correlation is essential. Serum or plasma urea nitroge n measurement (mass/volume)on 10-02-2021 Urea nitrogen [Mass/Vol] 9 mg/dL 7-18 [facility] Work Phone: Squamous epithelial cells de tection in urine sediment by light microscopyon 10-02-2021 Epithelial cells.squamous LM Ql (Urine sed) 0-5 SEEN /hpf 5-10 [facility] Work Phone: Thin prep Papanicolaou smear with manual screeningon 10-02-2021 Thin prep Papanicolaou smear with manual screening 16 U/L 15-37 [facility] Work Phone: Thin prep Papanicolaou smear with manual screening 5 5-15 [facility] Work Phone: Urine blood detectionon 09-05 RBC Ql (U) Negative Negative [facility] Work Phone: RBC Ql (U) 0 SEEN /hpf 0-5 [facility] Work Phone: Urine clarityon 10-02-2021 Clarity (U) Clear Clear [facility] Work Phone: Urine color determinationon 10-02-2021 Color (U) Yellow Yellow [facility] Work Phone: Urine glucose detectionon Glucose Ql (U) Negative Normal [facility] Work Phone: Urine leukocyte esterase det ection by dipstickon 10-02-2021 Leukocyte esterase Test strip Ql (U) Negative Negative [facility] Work Phone: Urine pHon 10-02-2021 pH (U) 6.0 [pH] 5.0 - 8.0 [facility] Work Phone: Urine sediment bacteria coun t by microscopy (number/high power field)on 10-02-2021 Bacteria LM.HPF (Urine sed) [#/Area] 0 /[HPF] None Seen [facility] Work Phone: Urine specific gravity measu rementon 10-02-2021 Specific gravity (U) [Rel density] 1.015 1.002-1.030 [facility] Work Phone: Urobilinogen Auto test strip Ql (U)on 10-02-2021 Urobilinogen Ql (U) Normal mg/dl Normal [facility] Work Phone: Basophil percentageon 2021 Basophil percentage 0-5 SEEN /hpf 0-5 [facility] Work Phone: Laboratory - Chemistry and C hemistry - challengeon 09-30-2021 Glucose Ql (U) Negative [facility] Work Phone: HCG ( test) Ql (U) Negative [facility] Work Phone: Specific gravity (U) [Rel density] 1.010 [facility] Work Phone: Urobilinogen (U) [Mass/Vol] Negative [facility] Work Phone: Laboratory - Hematology and Cell countson 09-30-2021 Hemoglobin Ql (U) Hemolyzed [facility] Work Phone: Laboratory - Urinalysison Protein Ql (U) Negative [facility] Work Phone: Mucus LM Ql (Urine sed)on Mucus Ql (Urine sed) 0 SEEN /hpf [facility] Work Phone: Nitrite ur dipstickon 2021 Nitrite Ql (U) Negative [facility] Work Phone: No Panel Informationon 09-30 Urine Leukocytes Negatve [facility] Work Phone: Urine Non-Hemolyzed Blood Moderate [facility] Work Phone: Protein Test strip Ql (U)on 09-30-2021 Protein Ql (U) 15 mg/dl Negative [facility] Work Phone: Squamous epithelial cells de tection in urine sediment by light microscopyon 09-30-2021 Epithelial cells.squamous LM Ql (Urine sed) 0-5 SEEN /hpf 5-10 [facility] Work Phone: Urine blood detectionon 09-04 RBC Ql (U) 50 /ul Negative [facility] Work Phone: RBC Ql (U) 0-5 SEEN /hpf 0-5 [facility] Work Phone: Urine clarityon 09-30-2021 Clarity (U) Clear [facility] Work Phone: Urine color determinationon 09-30-2021 Color (U) Yellow [facility] Work Phone: Urine glucose detectionon Glucose Ql (U) Normal mg/dl Normal [facility] Work Phone: Urine ketones detection by t est stripon 09-30-2021 Ketones Ql (U) Negative [facility] Work Phone: Urine leukocyte esterase det ection by dipstickon 09-30-2021 Leukocyte esterase Test strip Ql (U) Negative Negative [facility] Work Phone: Urine pHon 09-30-2021 pH (U) 7.0 [pH] [facility] Work Phone: Urine sediment bacteria coun t by microscopy (number/high power field)on 09-30-2021 Bacteria LM.HPF (Urine sed) [#/Area] 1 /[HPF] None Seen [facility] Work Phone: Urine specific gravity measu rementon 09-30-2021 Specific gravity (U) [Rel density] 1.015 1.002-1.030 [facility] Work Phone: Urine total bilirubin detect ion by test stripon 09-30-2021 Bilirubin Ql (U) Negative [facility] Work Phone: Urobilinogen Auto test strip Ql (U)on 09-30-2021 Urobilinogen Ql (U) Normal mg/dl Normal [facility] Work Phone: Absolute lymphocyte counton 09-22-2021 Lymphocytes Auto (Unsp spec) [#/Vol] 1.84 10*3/uL 0.83-4.51 [facility] Work Phone: Absolute reticulocyte counto n 09-22-2021 Reticulocytes (Bld) [#/Vol] 0.00 10*3/uL 0-5 [facility] Work Phone: Basophil percentageon 2021 Basophil percentage 3.0 mg/dL 2.5-4.9 [facility] Work Phone: Bilirubin [Mass/Vol] 0.20 mg/dL 0.20-1.00 [facility] Work Phone: Comment on above: For patients on eltr ombopag therapy, use of [place]ension [place] TBIL is not recommended. Chloride [Moles/Vol] 105 mmol/L 98-107 [facility] Work Phone: Cholesterol [Mass/Vol] 157 mg/dL <200 [facility] Work Phone: Comment on above: <200 mg/dL Desirable 200-240 mg/dL Borderline >240 mg/dL High Risk Glucose [Mass/Vol] 102 mg/dL 74-106 [facility] Work Phone: Comment on above: Fasting Glucose resu lt from 100 to 125 mg/dL suggests IMPAIRED HOMEOSTASIS per A.D.A. criteria. Neutrophils (Bld) [#/Vol] 3.9 10*3/uL 2.0-7.7 [facility] Work Phone: [phone] Potassium [Moles/Vol] 3.9 mmol/L 3.5-5.1 [facility] Work Phone: Protein [Mass/Vol] 7.5 g/dL 6.4-8.2 [facility] Work Phone: Sodium [Moles/Vol] 137 mmol/L 136-145 [facility] Work Phone: Triglyceride [Mass/Vol] 210 mg/dL <199 [facility] Work Phone: Comment on above: The drugs N-Acetylcy steine and Metamizole may falsely depress this assay.Serum Triglycerides Reference Interval Normal <150 mg/dL Borderline high 150 - 199 mg/dL High 200 - 499 mg/dL Very High > or = 500 mg/dL WBC (Bld) [#/Vol] 6.5 10*3/uL 4.4-11.0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 [*1] SOURCE: Urine, Clean Catch BODY SITE: COLLECTED DATE/TIME: 05/17/2023 16:57 EDT RECEIVED DATE/TIME: 05/17/2023 19:46 EDT START DATE/TIME: 05/17/2023 19:46 EDT FREE TEXT SOURCE: FINAL REPORTS Final Report [] Verified Date/Time/Personnel: 05/19/2023 08:05 EDT 10,000 - 50,000 cfu/ml Multiple bacterial morphotypes present. Probable Contamination. Suggest recollection if clinically indicated. PRELIMINARY REPORTS Preliminary Report [] Verified Date/Time/Personnel: 05/18/2023 10:46 EDT No growth to date Performing Locations *1: This test was performed at: [facility], [address] [place] [address], [facility] , [facility] ([place]) 05-18-2023 Note . MICRO - Microbiology PROCEDURE: Affirm Pathogens DNA Direct Probe [*1] SOURCE: Vaginal Fluid BODY SITE: Endocervix COLLECTED DATE/TIME: 05/17/2023 16:57 EDT RECEIVED DATE/TIME: 05/17/2023 19:48 EDT START DATE/TIME: 05/17/2023 19:48 EDT FREE TEXT SOURCE: FINAL REPORTS Final Report [] Verified Date/Time/Personnel: 05/18/2023 09:09 EDT Niurka species DNA Probe Positive Gardnerella vaginalis DNA Probe Negative Trichomonas vaginalis DNA Probe Negative Performing Locations *1: This test was performed at: [address], [id number] , [facility] ([place]) 05-13-2023 Note . MICRO - Microbiology PROCEDURE: Urine Culture [*1] SOURCE: Urine, Clean Catch BODY SITE: COLLECTED DATE/TIME: 05/11/2023 16:27 EST RECEIVED DATE/TIME: 05/11/2023 19:20 EST START DATE/TIME: 05/11/2023 19:20 EST FREE TEXT SOURCE: FINAL REPORTS Final Report [] Verified Date/Time/Personnel: 05/13/2023 07:36 EST <10,000 cfu/ml. No Significant growth. Sensitivity not indicated. PRELIMINARY REPORTS Preliminary Report [] Verified Date/Time/Personnel: 05/12/2023 09:25 EST No growth to date Performing Locations *1: This test was performed at: [address], [facility] , [facility] ([place]) 11-18-2021 Note [facility] Work Phone: Pap Smear Specimen Adequacy November 18, 2021 12:39pm Comment . Satisfactory for evaluation. Endocervical and/or squamous metaplasticcells (endocervical component) are present. Comment on above: Satisfactory for jaylen luation. Endocervical and/or squamous metaplasticcells (endocervical component) are present. 11-18-2021 Note [facility] Work Phone: Pap Smear Specimen Adequacy November 18, 2021 12:39pm Comment . Satisfactory for evaluation. Endocervical and/or squamous metaplasticcells (endocervical component) are present. Comment on above: Satisfactory for jaylen luation. Endocervical and/or squamous metaplasticcells (endocervical component) are present. Chief complaint+Reason for visit Narrative Reason for Visit Acute bronchitis Contact with or suspected exposure to other viral communicable disease Back pain Segmental and somatic dysfunction of cervical region Segmental and somatic dysfunction of lumbar region Segmental and somatic dysfunction of pelvic region Segmental and somatic dysfunction of thoracic region Hematuria [facility] Work Phone: Chief complaint+Reason for visit Narrative* Chief Complaint COVID TEST/SYMPTOMAT /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 COVID-19 POSSIBLE UTI URINARY S/S COVID TEST/ILL X3DAYS 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) Reason for Visit Back pain Segmental and somatic dysfunction of cervical region Segmental and somatic dysfunction of lumbar region Segmental and somatic dysfunction of pelvic region Segmental and somatic dysfunction of thoracic region Hematuria Encounter for routine gynecological examination [facility] Work Phone: Chiwa complaint+Reason for visit Narrative* Chief Complaint ADJUSTMENT COVID-19 POSSIBLE UTI URINARY S/S COVID TEST/ILL X3DAYS 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 INSERTION CHECK IUD PLACEMENT Reason for Visit Back pain Segmental and somatic dysfunction of cervical region Segmental and somatic dysfunction of lumbar region Segmental and somatic dysfunction of pelvic region Segmental and somatic dysfunction of thoracic region Hematuria Encounter for routine gynecological examination Encounter for IUD insertion [facility] Work Phone: Evaluation + Plan note Future Appointments Appointment Date:11/13/2023 10:00:00 AM Scheduled Provider:FRANCI PENA Location:[facility] Appointment Type: Wellness Annual Future Scheduled Tests Laboratory* Antinuclear Antibody Screen, Serum 09/28/22 * Iron Level 12/12/22 * Thyroid Stimulating Hormone 09/28/22 * Thyroid Stimulating Hormone 12/12/22 * Free T4 09/28/22 * A1C Hemoglobin 05/10/23 * Rheumatoid Factor 09/28/22 * Lipid Profile 09/28/22 * Complete Metabolic Panel 09/28/22 * Complete Metabolic Panel 05/10/23 * TIBC 12/12/22 [facility] Evaluation + Plan note Future Appointments Appointment Date:06/06/2023 10:15:00 AM Scheduled Provider:SUE NICHOLAS MD Location:[facility] 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 Appointment Date:11/13/2023 10:00:00 AM Scheduled Provider:FRANCI PENA Location:[facility] Appointment Type:PC Wellness Annual Diagnostic Tests Pending * HSV 1 and 2 Ab, IgG 05/31/23 Future Scheduled Tests Laboratory* Antinuclear Antibody Screen, Serum 09/28/22 * Iron Level 12/12/22 * Rapid Plasma Reagin Test 05/22/23 * Thyroid Stimulating Hormone 09/28/22 * Thyroid Stimulating Hormone 12/12/22 * Free T4 09/28/22 * A1C Hemoglobin 05/10/23 * Rheumatoid Factor 09/28/22 * Lipid Profile 09/28/22 * Complete Metabolic Panel 09/28/22 * Complete Metabolic Panel 05/10/23 * TIBC 12/12/22 [facility] Evnrdation note* Diagnosis Onset Date Resolution Status Acute bronchitis acute Contact with or suspected ex posure to other viral communicable disease acute Back pain acute Segmental and somatic dysfunction of cervical region acute Segmental and somatic dysfunction of lumbar region acute Segmental and somatic dysfunction of pelvic region acute Segmental and somatic dysfunction of thoracic region acute Hematuria acute [facility] Work Phone: evaluation note* Diagnosis Onset Date Resolution Status Back pain acute Segmental and somatic dysfunction of cervical region acute Segmental and somatic dysfunction of lumbar region acute Segmental and somatic dysfunction of pelvic region acute Segmental and somatic dysfunction of thoracic region acute Hematuria acute Encounter for routine gynecological examination noneactive [facility] Work Phone: Evaluation note* Diagnosis Onset Date Resolution Status Back pain acute Segmental and somatic dysfunction of cervical region acute Segmental and somatic dysfunction of lumbar region acute Segmental and somatic dysfunction of pelvic region acute Segmental and somatic dysfunction of thoracic region acute Hematuria acute Encounter for routine gynecological examination noneactive Encounter for IUD insertion acute [facility] Work Phone: Evaluation note* Diagnosis Onset Date Resolution Status Hematuria acute Encounter for routine gynecological examination noneactive Encounter for IUD insertion acute Encounter for IUD insertion acute Encounter for IUD removal ac niki [facility] Work Phone: Evaluation note* Diagnosis Onset Date Resolution Status Encounter for IUD insertion acute Encounter for IUD insertion acute Encounter for IUD removal ac niki Encounter for IUD removal ac niki Contraceptive management acu te [facility] Work Phone: Evaluation noteNo assessment information available [facility] Work Phone: Evaluation note* Diagnosis Onset Date Resolution Status Acute conjunctivitis, left eye acute [facility] Work Phone: Evaluation note* Diagnosis Onset Date Resolution Status Subacromial impingement of right shoulder noneactive [facility] Work Phone: Evaluation note* Diagnosis Onset Date Resolution Status Subacromial impingement of right shoulder noneactive Encounter for routine gynecological examination noneactive [facility] Work Phone: Hospital course Narrative No data available for this section [facility] Hospital Discharge instructions No data available for this section [facility] Progress note No data available for this section [facility] Summary Purpose Family History No Family History Records Found Relationship Condition Age at Onset Recorded Date/T nicolás Not Specified Diabetes mellitus Unknown Cardiac disease Unknown Hypertension Unknown grandfather Alcohol abuse Unknown grandmother Malignant neoplasm of breast Unknown mother Seizure Unknown father Cerebrovascular accident (CVA) Unknown Advance Directives No Advanced Directives Records Found Advance Directive Response Recorded Date/ Time Living Will No October 02, 2021 9:58am Power of Search Engine Optimization Specialist No October 02 9:58am Advance Directive Response Recorded Date/ Time Living Will No October 02, 2021 8:58am Power of Search Engine Optimization Specialist No October 02 8:58am Chief Complaint and Reason for Visit Chief Complaint POSSIBLE UTI URINARY S/S COVID TEST/ILL X3DAYS 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 INSERTION CHECK IUD PLACEMENT IUD replacement IUD PLACEMENT CHECK Reason for Visit Hematuria Encounter for routine gynecological examination Encounter for IUD insertion Encounter for IUD insertion Encounter for IUD removal Chief Complaint VINICIO INSERTION CHECK IUD PLACEMENT IUD replacement IUD PLACEMENT CHECK IUD Removal Nexplanon insertion Reason for Visit Encounter for IUD in sertion Encounter for IUD insertion Encounter for IUD removal Encounter for IUD removal Contraceptive management Chief Complaint SCREENING Chief Complaint 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 Reason for Visit Acute conjunctivitis , left eye 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 Reason for Visit Subacromial impingem ent of right shoulder 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 Lane Mcgee MD Family Provider Active Franci Pena GENERAL DISTILLERY WORKER, GENERAL DISTILLERY WORKER-C Primary Care Provider Active Team Status: Inactive Member Role Status Dates Franci Pena NP, GENERAL DISTILLERY WORKER-C Primary Care Provider, Referri ng Provider Active Dr. Eliana Camacho DO Attending Provider Activ e Team Status: Inactive Member Role Status Dates Franci Pena NP, GENERAL DISTILLERY WORKER-C Primary Care Provider Active Dr. Eliana Camacho DO Attending Provider Activ e Team Status: Inactive Member Role Status Dates Franci Pena NP, GENERAL DISTILLERY WORKER-C Primary Care Provider Active Dr. Eliana Camacho DO Attending Provider, Refe rring Provider Active Team Status: Inactive Member Role Status Dates Franci Pena NP, GENERAL DISTILLERY WORKER-C Primary Care Provider Active Dr. Lewis Cabrera MD Attending Provider, Referring Pro vider Active Team Status: Inactive Member Role Status Dates Franci Pena NP, GENERAL DISTILLERY WORKER-C Primary Care Provider Active Rex DAVILA, PA Attending Provider Active Team Status: Inactive Member Role Status Dates Franci Pena NP, GENERAL DISTILLERY WORKER-C Primary Care Pro vider, Attending Provider, Referring Provider Active Team Status: Active Member Role Status Dates Franci Pena NP, GENERAL DISTILLERY WORKER-C Primary Care Provider Active Health Risk Assessment Attending Provider, Referring Esteban cates Active Team Status: Inactive Member Role Status Dates Franci Pena NP, GENERAL DISTILLERY WORKER-C Primary Care Provider, Referri ng Provider Active Soraya Lust PA, PA Attending Provider Active Team Status: Inactive Member Role Status Dates Franci Pena GENERAL DISTILLERY WORKER, GENERAL DISTILLERY WORKER-C Primary Care Provider Active GIOVANNI Stevens Attending Provider, Referring Anahii raoul Active FOR RECORDS PERTAINING TO PATIENTS WHO ARE OR HAVE BEEN ENROLLED IN A CHEMICAL DEPENDENCY/SUBSTANCEABUSE PROGRAM, SOME INFORMATION MAY BE OMITTED. This clinical summary was aggregated from multiple sources. Caution should be exercised in using it in the provision of clinical care. This summary normalizes information from multiple sources, and as a consequence, information in this document may materially change the coding, format and clinical context of patient data. In addition, data may be omitted in some cases. CLINICAL DECISIONS SHOULD BE BASED ON THE PRIMARY CLINICAL RECORDS. [facility] Send Word Now [facility]. provides no warranty or guarantee of the accuracy or completeness of information in this document.
--- OUTSIDE RECORDS SUMMARY | 2024-11-26 12:45 | XMS RPT_ITS | CCD ---
Author Organization [facility] Care Team Providers Care Perinatal Coordinator Name Role Phone Becky BULK SEALER OPERATOR, BULK SEALER OPERATOR-C Franci Primary Care Provider [phone] GIOVANNI Hendrix Attending Provider Yesyson BULK SEALER OPERATOR, BULK SEALER OPERATOR-C Franci Referring Provider [phone] Hermes CULP, BULK SEALER OPERATOR-C Erlinda Slater Attending Provider [phone] Dr. Em Lazar Attending Provider [phone] GIOVANNI Sabillon Attending Provider [phone] Lorson BULK SEALER OPERATOR, BULK SEALER OPERATOR-C Franci Primary Care Provider [phone] L[place]on BULK SEALER OPERATOR, BULK SEALER OPERATOR-C Franci Referring Provider [phone] GIOVANNI Hendrix Attending Provider Dr. Eliana Camacho Attending Provider Lorson BULK SEALER OPERATOR, BULK SEALER OPERATOR-C Franci Primary Care Provider Lorson BULK SEALER OPERATOR, BULK SEALER OPERATOR-C Franci Referring Provider [phone] Lorson BULK SEALER OPERATOR, BULK SEALER OPERATOR-C Franci Primary Care Provider Lorson BULK SEALER OPERATOR, BULK SEALER OPERATOR-C Franci Referring Provider [phone] Lorson BULK SEALER OPERATOR, BULK SEALER OPERATOR-C Franci Primary Care Provider Lorson BULK SEALER OPERATOR, BULK SEALER OPERATOR-C Franci Referring Provider [phone] Dr. Eliana Camacho Attending Provider Lorson BULK SEALER OPERATOR, BULK SEALER OPERATOR-C Franci Primary Care Provider [phone] GIOVANNI Hendrix Attending Provider Yesyson BULK SEALER OPERATOR, BULK SEALER OPERATOR-C Franci Primary Care Provider [phone] Becky BULK SEALER OPERATOR, AMAURY Koroma Referring Provider GIOVANNI Galan Attending Provider [phone] Dr. Eliana Camacho Attending Provider [phone] LORSON PRINCIPAL ACCOUNTS CLERK-CLINICAL NURSING INSTRUCTOR, FRANCI Primary Care Physician LORSON PRINCIPAL ACCOUNTS CLERK-CLINICAL NURSING INSTRUCTOR, FRANCI Attending Unavail able LORSON PRINCIPAL ACCOUNTS CLERK-CLINICAL NURSING INSTRUCTOR, FRANCI Primary Care Unavail able LORSON PRINCIPAL ACCOUNTS CLERK-CLINICAL NURSING INSTRUCTOR, FRANCI Attending Unavail able LORSON PRINCIPAL ACCOUNTS CLERK-CLINICAL NURSING INSTRUCTOR, FRANCI Primary Care Unavail able [place]OCK PRINCIPAL ACCOUNTS CLERK-CLINICAL NURSING INSTRUCTOR, [place] Attending Unavailabl e LORSON PRINCIPAL ACCOUNTS CLERK-CLINICAL NURSING INSTRUCTOR, FRANCI Primary Care Unavail able Lorson BULK SEALER OPERATOR, Franci Primary Care Unavailable Lorson BULK SEALER OPERATOR, Franci Referring Unavailable Rex Hendrix Attending Unavailable Lorson BULK SEALER OPERATOR, Franci Attending Unavailable Yesyson BULK SEALER OPERATOR, Franci Referring Unavailable Yesyson BULK SEALER OPERATOR, Franci Primary Care Unavailable Lorson BULK SEALER OPERATOR, Franci Primary Care Unavailable Lorson BULK SEALER OPERATOR, Franci Attending Unavailable Lorson BULK SEALER OPERATOR, Franci Referring Unavailable Allergies Allergy Classification Reported Allergen(s) Allergy Type Date of Onset Reaction(s) Facility (15 sources) nickel; Translations: [NICKEL] Drug Allergy 9 AOF, Hives, Unknown [facility] Repository (4 sources) Shellfish; Translations: [SHELLFISH] Propensity to adverse reactions to food (disorder) 9 AOF [facility] Repository (11 sources) Shellfish; Translations: [shellfish derived] Allergy to substance 2 Anaphylaxis [facility] Medications Current Medications Medication Drug Class(es) Dates [...] 0 Refill(s), 05/18/23 1:31:00 PM EDT, Pharmacy: [facility]/pharmacy #[id number], UTI (urinary tract infection), 156.5, cm, 05/11/23 [...] qDay, # 180 tab(s), 3 Refill(s), Pharmacy: [facility], 118, cm, 11/09/22 15:01:00 [...] qDay, # 90 tab(s), 3 Refill(s), Pharmacy: [facility], 156.5, cm, 05/10/23 15:36:00 [...] Daily, # 3 tab(s), 0 Refill(s), Pharmacy: [facility]/pharmacy #[id number], 156.5, cm, 05/17/23 14:46:00 EDT, Height, 81.9, kg, 05/17/23 14:46:00 EDT, Dosing Weight Start Date: 05/18/23 Stop Date: 05/21/23 Status: Ordered miSOPROStol 0.2 mg oral tablet (7 sources) Prostaglandin E1 Analog Start: 12-17-2021 End: 01-07-2022 Misoprostol (Cytotec) 200 mcg tablet Discontinued 400 MCG VAGINAL ONCE 2 December 17, 2021 12:00am January 07, 2022 10:59am Use vaginally the night before procedure. polymyxin b 03102 unt/ml / trimethoprim 1 mg/ml ophthalmic solution [...] BILATo n 12-05-2023 SCRN MAMM (CAD)W/MAXIM BILAT [facility] Imaging Services [address] [place] [address] SCRN MAMM (CAD)W/MAXIM BILAT MR#: [id number] Acct: [id number] Name: YARI HERNANDEZ Rep #: [id number] : 1985 F 38 From: Red fagan MD PCP: AMAURY David Status: [facility] Study: SCRN MAMM (CAD)W/MAXIM BILAT Date of Exam: 03/29 Exam# [id number] Ordering Dr: Franci Pena NP BULK SEALER OPERATOR -C [id number] MAMMOGRAPHY - BILATERAL SCREENING REASON FOR EXAM: [...] delay biopsy of a clinically suspicious abnormality. [id number] Electronically Signed: Red Zimmer MD at 8:39 EDT Reading Location ID and State: [facility] / [place] , Service support , CC: AMAURY Pena Staff Readiness Officer: Signed Normal [facility] [id number] 06-01-2023 HSV 1 IgG Type Spec <0.91 Normal 0.00-0.90 [facility] ([place]) Comment on above: Result Comment: Nega tive <0.91 Equivocal 0.91 - 1.09 Positive >1.09 Note: Negative indicates no antibodies detected to HSV-1. Equivocal may suggest early infection. If clinically appropriate, retest at later date. Positive indicates antibodies detected to HSV-1. Performed By: #### 1 [id number] #### [address] [address] HSV 2 IgG Type Spec 16.70 Index High 0.00-0.90 [facility] ([place]) Comment on above: Result Comment: Nega tive [...] results should be clinically correlated. Performed At: [address] [id number] Breanne Cannon PhD Ph:[phone] Performed By: #### 1 [id number] #### [address] [address] CTPCRon 05-18-2023 C. trachomatis Interp Normal See CT Interp N [facility] ([place]) Comment on above: Result Comment: C. t rachomatis DNA not detected. Specimen is presumptive negative for C. trachomatis. A negative result does not preclude C. trachomatis infection because results depend on adequate specimen collection, absence of inhibitors, and sufficient DNA to be detected. See CT Interp N Performed By: #### N GPCR1, CTPCR #### [address] [address] C.trachomatis PCR Negative Normal Negative [facility] ([place]) Comment on above: Result Comment: Mole cular (PCR) assay performed on the Heidi Justino 4800 system. Performed By: #### N GPCR1, CTPCR #### [address] [address] Chlam Source Cervix Normal [facility] ([place]) Comment on above: Performed By: #### N GPCR1, CTPCR #### [address] [address] [id number] 05-18-2023 GC PCR Source Cervix Normal [facility] ([place]) Comment on above: Performed By: #### N GPCR1, CTPCR #### [address] [address] N. gonorrhoeae (PCR) Negative Normal Negative [facility] ([place]) Comment on above: Result Comment: Mole cular (PCR) assay performed on the Heidi Justino 4800 System. Performed By: #### N GPCR1, CTPCR #### [address] [address] N. gonorrhoeae Interp Normal See NG Interp N [facility] ([place]) Comment on above: Result Comment: N. g onorrhoeae DNA not detected. Specimen is presumptive negative for N. gonorrhoeae. A negative result does not preclude Neisseria gonorrhoeae infection because results depend on adequate specimen collection, absence of inhibitors, and sufficient DNA to be detected. See NG Interp N Performed By: #### N GPCR1, CTPCR #### [place] [address] LABORATORYOrdered By: Santos Murdock on 05-17-2023 C. [...] Probe Negative Trichomonas vaginalis DNA Probe Negative [facility] No Panel Informationon 05-16 Culture Urine 10,000 - 50,000 cfu/ ml Multiple bacterial morphotypes present. Probable Contamination. Suggest recollection if clinically indicated. [facility] Work Phone: No Panel Informationon 05-10 Culture Urine <10,000 cfu/ml. No Significant growth. Sensitivity not indicated. [facility] Work Phone: Office Visit Reporton [address] [facility] [address] [place] [address] OFFICE VISIT Date of Service: 04/14/23 MR#: [id number] Acct: [id number] Patient: YARI HERNANDEZ Rep #: [id number] : 1985 Provider: GIOVANNI Torres Age/Sex: 37/F Location: [facility] Status: Signed Employer Purchased Covid Test Note: Patient here today for Covid Testing, requested by their Employer. Assessment and Plan Plan Details Goals Barriers: Goals Decrease pain Decrease spasm Improve ROM 04/14/23 0949 Date Rex DAVILA Cosigner Signature: Date (if applicable) CC: Normal [facility] Chlamydia trachomatis rRNA d etection by probe and target amplification methodOrdered By: Eliana Aleman on 11-24-2022 C. trachomatis rRNA APRIL+probe Ql (Unsp spec) Negative Negative [facility] HIV 1 and HIV-2 antibody ass ay with HIV-1 p24 antigen detectionOrdered By: Eliana Aleman on 11-24-2022 HIV 1+2 Ab+HIV1 p24 Ag IA Ql Non-Reactive Nonreactive [facility] Laboratory - Microbiology an d Antimicrobial susceptibilityOrdered By: Eliana Aleman on 11-24-2022 N. gonorrhoeae DNA APRIL+probe Ql (Unsp spec) Negative Negative [facility] Comment on above: Performed at: =[address] [place] [id number] Director: Marisol Garcia MD, Phone: [phone] No Panel InformationOrdered By: Eliana Aleman on 11-24-2022 Hepatitis B Surface Antigen Non-Reactive Nonreactive [facility] Hepatitis C Antibody Non-Reactive Nonreactive [facility] Comment on above: Non Reactive: < 0.8 Equivocal: >/= 0.8 to < 1.0 Reactive: >/= 1.0The [facility] recommends that a reactive/equivocal HCV antibody result be followed up by the HCV Nucleic Acid Amplificationtest ([id number]) Herpes Simplex Virus I IgG Antibody 0.94 index 0.00-0.90 [facility] Comment on above: A second sample shou ld be collected and tested no less than2-4 weeks. Negative <0.91 Equivocal 0.91 - 1.09 Positive >1.09 Note: Negative indicates no antibodies detected to HSV-1. Equivocal may suggest early infection. If clinically appropriate, retest at later date. Positive indicates antibodies detected to HSV-1. No Panel Informationon 11-24 POC Trichomonas (Rapid) Negative [facility] Serum Treponema species anti body detectionOrdered By: Eliana Aleman on 11-24-2022 Treponema sp Ab Ql (S) Non-Reactive [facility] Serum herpes simplex virus 2 antibody assay by immunoassay (units/volume)Ordered By: Eliana Aleman on 11-24-2022 HSV 2 Ab IA Qn (S) < 0.91 index 0.00-0.90 [facility] Comment on above: Negative <0.91 Equiv [...] retest 4-6 weeks later.Performed at: - [facility] [id number] [place], [place] [id number] Director: Davis Raymundo PhD, Phone: [phone] Absolute lymphocyte countOrd ered By: HEALTH ASSESSMENT on 10-04-2022 Lymphocytes Auto (Unsp spec) [#/Vol] 2.19 10*3/uL 0.83-4.51 [facility] Absolute reticulocyte countO rdered By: HEALTH ASSESSMENT on 10-04-2022 Reticulocytes (Bld) [#/Vol] 0.00 10*3/uL 0-5 [facility] Basophil percentageOrdered B y: HEALTH ASSESSMENT on 10-04-2022 Basophil percentage 3.9 mg/dL 2.5-4.9 [facility] Bilirubin [Mass/Vol] 0.30 mg/dL 0.20-1.00 [facility] Comment on above: For patients on eltr ombopag therapy, use of Dimension [place] TBIL is not recommended. Chloride [Moles/Vol] 106 mmol/L 98-107 [facility] Cholesterol [Mass/Vol] 156 mg/dL <200 [facility] Comment on above: <200 mg/dL Desirable 200-240 mg/dL Borderline >240 mg/dL High Risk Glucose [Mass/Vol] 121 mg/dL 74-106 [facility] Comment on above: Fasting Glucose resu lt from 100 to 125 mg/dL suggests IMPAIRED HOMEOSTASIS per A.D.A. criteria. LDH [Catalytic activity/Vol] 116 U/L 84-246 [facility] Neutrophils (Bld) [#/Vol] 3.6 10*3/uL 2.0-7.7 [facility] Potassium [Moles/Vol] 3.6 mmol/L 3.5-5.1 [facility] Protein [Mass/Vol] 7.6 g/dL 6.4-8.2 [facility] Sodium [Moles/Vol] 139 mmol/L 136-145 [facility] Triglyceride [Mass/Vol] 101 mg/dL <199 [facility] Comment on above: The drugs N-Acetylcy steine and Metamizole may falsely depress this assay.Serum Triglycerides Reference Interval Normal <150 mg/dL Borderline high 150 - 199 mg/dL High 200 - 499 mg/dL Very High > or = 500 mg/dL WBC (Bld) [#/Vol] 6.7 10*3/uL 4.4-11.0 [facility] Bilirubin Test strip Ql (U)O rdered By: HEALTH ASSESSMENT on 10-04-2022 Bilirubin Ql (U) Negative Negative [facility] Blood erythrocytes count (nu mber/volume)Ordered By: HEALTH ASSESSMENT on 10-04-2022 RBC (Bld) [#/Vol] 4.12 10*6/uL 4.2-5.4 [facility] Blood hemoglobin measurement (mass/volume)Ordered By: HEALTH ASSESSMENT on 10-04-2022 Hemoglobin (Bld) [Mass/Vol] 12.5 g/dL 12.0-15.0 [facility] Blood platelet mean volumeOr dered By: HEALTH ASSESSMENT on 10-04-2022 Platelet mean volume (Bld) [Entitic vol] 9.4 fL 6.2-12.0 [facility] Determination of erythrocyte mean corpuscular volume (MCV)Ordered By: HEALTH ASSESSMENT on 10-04-2022 MCV (RBC) [Entitic vol] 93.0 fL 81-99 [facility] Direct bilirubinOrdered By: HEALTH ASSESSMENT on 10-04-2022 Bilirubin.direct [Mass/Vol] 0.12 mg/dL 0.00-0.30 [facility] Hematocrit Auto (Bld) [Volum e fraction]Ordered By: HEALTH ASSESSMENT on 10-04-2022 Hematocrit (Bld) [Volume fraction] 38.3 % 37-47 [facility] Ketones Test strip Ql (U)Ord ered By: HEALTH ASSESSMENT on 10-04-2022 Ketones Ql (U) Negative Negative [facility] Laboratory - Chemistry and C hemistry - challengeOrdered By: HEALTH ASSESSMENT on 10-04-2022 ALP [Catalytic activity/Vol] 59 U/L 45-117 [facility] ALT [Catalytic activity/Vol] 35 U/L 13-56 [facility] Cholesterol.total/Chol esterol in HDL [Mass ratio] 3.80 {ratio} [facility] CO2 [Moles/Vol] 30.0 mmol/L 21.0-32.0 [facility] Globulin (S) [Mass/Vol] 4.1 g/dL 2.2-4.2 [facility] Urea nitrogen/Creatinine [Mass ratio] 10.5 mg/mg 10-20 [facility] Laboratory - Chemistry and C hemistry - challengeOrdered By: Franci Pena on 10-04-2022 Free T4 [Mass/Vol] 0.86 ng/dL 0.76-1.46 [facility] Laboratory - Hematology and Cell countsOrdered By: HEALTH ASSESSMENT on 10-04-2022 Erythrocyte distribution width (RBC) [Entitic vol] 51.3 fL 35.1-43.9 [facility] Erythrocyte distribution width (RBC) [Ratio] 15.1 % 11.6-14.6 [facility] MCH (RBC) [Entitic mass] 30.3 pg 27.0-32.0 [facility] Nucleated RBC/100 WBC (Bld) [Ratio] 0 % 0-5 [facility] MCHC Auto (RBC) [Mass/Vol]Or dered By: HEALTH ASSESSMENT on 10-04-2022 MCHC (RBC) [Mass/Vol] 32.6 g/dL 32-36 [facility] Nitrite Test strip Ql (U)Ord ered By: HEALTH ASSESSMENT on 10-04-2022 Nitrite Ql (U) Negative Negative [facility] No Panel InformationOrdered By: Franci Pena on 10-04-2022 Anti-Nuclear Antibody Screen Negative Negative [facility] Comment on above: Performed at: [place] [id number] Director: Davis Raymundo PhD, Phone: [phone] Thyroid Stimulating Hormone (TSH) 1.95 uIU/mL 0.358-3.74 [facility] No Panel InformationOrdered By: HEALTH ASSESSMENT on 10-04-2022 Estimated GFR (MDRD) Amer 111 mL/min >60 [facility] Comment on above: GFR Calc Estimated GFR (MDRD) Non-Af Amer 92 mL/min >60 [facility] Comment on above: Non- GFR Calc Platelets bldOrdered By: CRISTA [facility] ASSESSMENT on 10-04-2022 Platelets (Bld) [#/Vol] 317 10*3/uL 150-450 [facility] Protein Test strip Ql (U)Ord ered By: HEALTH ASSESSMENT on 10-04-2022 Protein Ql (U) 15 mg/dl Negative [facility] Segmented neutrophils/100 WB C Auto (Bld)Ordered By: HEALTH ASSESSMENT on 10-04-2022 Segmented neutrophils/100 WBC (Bld) 53.3 % 47-70 [facility] Serum or plasma albumin shay urement (mass/volume)Ordered By: HEALTH ASSESSMENT on 10-04-2022 Albumin [Mass/Vol] 3.5 g/dL 3.2-5.0 [facility] Serum or plasma albumin/glob ulin mass ratioOrdered By: HEALTH ASSESSMENT on 10-04-2022 Albumin/Globulin [Mass ratio] 0.9 {ratio} 0.9-2.4 [facility] Serum or plasma calcium shay urement (mass/volume)Ordered By: HEALTH ASSESSMENT on 10-04-2022 Calcium [Mass/Vol] 8.8 mg/dL 8.5-10.1 [facility] Serum or plasma cholesterol in HDL measurement (mass/volume)Ordered By: HEALTH ASSESSMENT on 10-04-2022 Cholesterol in HDL [Mass/Vol] 41 mg/dL >40 [facility] Comment on above: The drugs N-Acetylcy steine and Metamizole may falsely depress this assay. Reference Range HDL <40 mg/dL Low HDL Cholesterol HDL >or= 60 mg/dL High HDL Cholesterol Serum or plasma cholesterol in VLDL measurement (mass/volume)Ordered By: HEALTH ASSESSMENT on 10-04-2022 Cholesterol in VLDL [Mass/Vol] 20 mg/dL 5-40 [facility] Serum or plasma creatinine m easurement (mass/volume)Ordered By: HEALTH ASSESSMENT on 10-04-2022 Creatinine [Mass/Vol] 0.76 mg/dL 0.55-1.02 [facility] Comment on above: The validity of the calculated GFR & GFRAA in patients over 70 years has not been determined. Clinical correlation is essential. Serum or plasma low density lipoprotein (LDL) cholesterol measurement (mass/volume)Ordered By: HEALTH ASSESSMENT on 10-04-2022 Cholesterol in LDL [Mass/Vol] 95 mg/dL 0-130 [facility] Serum or plasma urea nitroge n measurement (mass/volume)Ordered By: HEALTH ASSESSMENT on 10-04-2022 Urea nitrogen [Mass/Vol] 8 mg/dL 7-18 [facility] Serum or plasma uric acid me asurement (mass/volume)Ordered By: HEALTH ASSESSMENT on 10-04-2022 Urate [Mass/Vol] 5.5 mg/dL 2.6-6.0 [facility] Comment on above: The drugs N-Acetylcy steine and Metamizole may falsely depress this assay. Serum rheumatoid factor dete ctionOrdered By: Franci Pena on 10-04-2022 Rheumatoid factor Ql (S) < 10.0 IU/mL <15 [facility] Thin prep Papanicolaou smear with manual screeningOrdered By: HEALTH ASSESSMENT on 10-04-2022 Thin prep Papanicolaou smear with manual screening 21 U/L 15-37 [facility] Thin prep Papanicolaou smear with manual screening 3 5-15 [facility] Urine blood detectionOrdered By: HEALTH ASSESSMENT on 10-04-2022 RBC Ql (U) Negative Negative [facility] Urine clarityOrdered By: Lisa [facility] ASSESSMENT on 10-04-2022 Clarity (U) Clear Clear [facility] Urine color determinationOrd ered By: HEALTH ASSESSMENT on 10-04-2022 Color (U) Yellow Yellow [facility] Urine glucose detectionOrder ed By: HEALTH ASSESSMENT on 10-04-2022 Glucose Ql (U) Normal mg/dl Normal [facility] Urine leukocyte esterase det ection by dipstickOrdered By: HEALTH ASSESSMENT on 10-04-2022 Leukocyte esterase Test strip Ql (U) Negative Negative [facility] Urine pHOrdered By: HEALTH A SSESSMENT on 10-04-2022 pH (U) 8.0 [pH] 5.0 - 8.0 [facility] Urine specific gravity measu rementOrdered By: HEALTH ASSESSMENT on 10-04-2022 Specific gravity (U) [Rel density] 1.010 1.002-1.030 [facility] Urobilinogen Auto test strip Ql (U)Ordered By: HEALTH ASSESSMENT on 10-04-2022 Urobilinogen Ql (U) Normal mg/dl Normal [facility] Basophil percentageOrdered B y: Dr. Cabrera on 03-09-2022 Bilirubin [Mass/Vol] 0.30 mg/dL 0.20-1.00 [facility] Comment on above: For patients on eltr ombopag therapy, use of Dimension [place] TBIL is not recommended. Chloride [Moles/Vol] 108 mmol/L 98-107 [facility] Glucose [Mass/Vol] 85 mg/dL 74-106 [facility] Potassium [Moles/Vol] 3.8 mmol/L 3.5-5.1 [facility] Comment on above: Slight Hemolysis, Re sult may be falsely increased. Protein [Mass/Vol] 8.2 g/dL 6.4-8.2 [facility] Sodium [Moles/Vol] 139 mmol/L 136-145 [facility] Direct bilirubinOrdered By: Dr. Cabrera on 03-09-2022 Bilirubin.direct [Mass/Vol] 0.06 mg/dL 0.00-0.30 [facility] Laboratory - Chemistry and C hemistry - challengeOrdered By: Dr. Cabrera on 03-09-2022 ALP [Catalytic activity/Vol] 55 U/L 45-117 [facility] ALT [Catalytic activity/Vol] 34 U/L 13-56 [facility] CO2 [Moles/Vol] 26.0 mmol/L 21.0-32.0 [facility] Globulin (S) [Mass/Vol] 4.2 g/dL 2.2-4.2 [facility] Urea nitrogen/Creatinine [Mass ratio] 13.7 mg/mg 10-20 [facility] No Panel InformationOrdered By: Dr. Cabrera on 03-09-2022 Estimated GFR (MDRD) Amer 105 mL/min >60 [facility] Comment on above: GFR Calc Estimated GFR (MDRD) Non-Af Amer 87 mL/min >60 [facility] Comment on above: Non- GFR Calc Serum or plasma albumin shay urement (mass/volume)Ordered By: Dr. Cabrera on 03-09-2022 Albumin [Mass/Vol] 4.0 g/dL 3.2-5.0 [facility] Serum or plasma calcium shay urement (mass/volume)Ordered By: Dr. Cabrera on 03-09-2022 Calcium [Mass/Vol] 9.5 mg/dL 8.5-10.1 [facility] Serum or plasma creatinine m easurement (mass/volume)Ordered By: Dr. Cabrera on 03-09-2022 Creatinine [Mass/Vol] 0.80 mg/dL 0.55-1.02 [facility] Comment on above: The validity of the calculated GFR & GFRAA in patients over 70 years has not been determined. Clinical correlation is essential. Serum or plasma urea nitroge n measurement (mass/volume)Ordered By: Dr. Cabrera on 03-09-2022 Urea nitrogen [Mass/Vol] 11 mg/dL 7-18 [facility] Thin prep Papanicolaou smear with manual screeningOrdered By: Dr. Cabrera on 03-09-2022 Thin prep Papanicolaou smear with manual screening 22 U/L 15- [facility] Comment on above: Slight Hemolysis, Re sult may be falsely increased. Thin prep Papanicolaou smear with manual screening 5 5-15 [facility] Laboratory - Chemistry and C hemistry - challengeon 01-14-2022 HCG ( test) Ql (U) Negative [facility] Laboratory - Chemistry and C hemistry - challengeon 12-08-2021 HCG ( test) Ql (U) Negative [facility] Cervical or vagninal specime n microscopic examination by cytology stain (reported ason 11-18-2021 Cytology report Cyto stain Doc (Cvx/Vag) Comment . [facility] Work Phone: Comment on above: The Pap [...] rRNA APRIL+probe Ql (Unsp spec) Negative Negative [facility] Work Phone: Detection in cervical specim en of any of human papilloma virus (HPV) 16, 18, 31, 33,on 11-18-2021 HPV 16+18+31+33+35+39+45+5 1+52+56+58+59+66+68 DNA Probe+sig amp Ql (Cvx) Negative Negative [facility] Work Phone: Comment on above: This nucleic acid am plification test detects fourteen high- risk HPV types (16,18,31,33,35,39,45,51,52,56,58,59,66,68)without differentiation.Performed at: - [facility] [id number] [place], [place] [id number] Director: Manny Parekh MD, Phone: [phone] at: [facility] [address] [id number] Director: Marisol Garcia MD, Phone: [phone] at: =[facility] [id number] Director: Marisol Garcia MD, Phone: [phone] Laboratory - Cytologyon 11-04 Patch Washer Cyto stain Nom (Cvx/Vag) [ID] Comment . [facility] Work Phone: Comment on above: Holley Cabrera, Cytot echnologist Laboratory - Microbiology an d Antimicrobial susceptibilityon 11-18-2021 N. gonorrhoeae DNA APRIL+probe Ql (Unsp spec) Negative Negative [facility] Work Phone: Comment on above: Performed at: =G - L [address] [id number] Director: Marisol Garcia MD, Phone: [phone] Laboratory - Miscellaneous t estson 11-18-2021 Service comment (Unsp spec) [Interp] Comment . [facility] Work Phone: Comment on above: This liquid based Th inPrep(R) pap test was screened withthe use of an image guided system. Service comment (Unsp spec) [Interp] . . [facility] Work Phone: No Panel Informationon 11-18 Pap Smear QC Review Comment . [facility] Work Phone: Comment on above: Radha Charlton totechnologist (ASCP) Pathology report final diagnosis Narrative Comment . [facility] [facility] Work Phone: Comment on above: NEGATIVE FOR INTRAEP ITHELIAL LESION OR MALIGNANCY.THIS SPECIMEN WAS RESCREENED PART OF OUR [employer] CURATOR PROGRAM. Laboratory - Microbiology an d Antimicrobial susceptibilityon 10-06-2021 SARS-CoV-2 (COVID-19) RNA APRIL+probe Ql (Unsp spec) Detected [facility] Work Phone: No Panel Informationon 10-06 POC Nasal Swab Influenza A,B Not detected [facility] Work Phone: POC Nasal Swab RSV Not detected [facility] Work Phone: Absolute lymphocyte counton 10-02-2021 Lymphocytes Auto (Unsp spec) [#/Vol] 2.22 10*3/uL 0.83-4.51 [facility] Work Phone: Basophil percentageon 2021 Basophil percentage 0 SEEN /hpf 0-5 [facility] Work Phone: Basophils/100 WBC (Bld) 0.7 % 0-1 [facility] Work Phone: Bilirubin [Mass/Vol] 0.20 mg/dL 0.20-1.00 [facility] Work Phone: Comment on above: For patients on eltr ombopag therapy, use of Dimension [place] TBIL is not recommended. Chloride [Moles/Vol] 109 mmol/L 98-107 [facility] Work Phone: Eosinophils/100 WBC (Bld) 7.2 % 0-5 [facility] Work Phone: Glucose [Mass/Vol] 107 mg/dL 74-106 [facility] Work Phone: Comment on above: Fasting Glucose resu lt from 100 to 125 mg/dL suggests IMPAIRED HOMEOSTASIS per A.D.A. criteria. Neutrophils (Bld) [#/Vol] 3.9 10*3/uL 2.0-7.7 [facility] Work Phone: Neutrophils/100 WBC (Bld) 55.0 % 47-70 [facility] Work Phone: Potassium [Moles/Vol] 4.1 mmol/L 3.5-5.1 [facility] [place]: Protein [Mass/Vol] 7.6 g/dL 6.4-8.2 [facility] Work Phone: Sodium [Moles/Vol] 138 mmol/L 136-145 [facility] Work Phone: WBC (Bld) [#/Vol] 7.1 10*3/uL 4.4-11.0 [facility] Work Phone: Beta hCG serum qualon 2021 Beta HCG ( test) Ql Negative [facility] Work Phone: Bilirubin Test strip Ql (U)o n 10-02-2021 Bilirubin Ql (U) Negative Negative [facility] Work Phone: Blood erythrocytes count (nu mber/volume)on 10-02-2021 RBC (Bld) [#/Vol] 4.30 10*6/uL 4.2-5.4 [facility]: Blood hemoglobin measurement (mass/volume)on 10-02-2021 Hemoglobin (Bld) [Mass/Vol] 11.6 g/dL 12.0-15.0 [facility] Work Phone: Blood lymphocytes/100 leukoc yteson 10-02-2021 Lymphocytes/100 WBC (Bld) 31.1 % 19-41 [facility] Work Phone: [phone] Blood monocytes/100 leukocyt eson 10-02-2021 Monocytes/100 WBC (Bld) 5.9 % 0-10 [facility] Work Phone: Blood platelet mean volumeon 10-02-2021 Platelet mean volume (Bld) [Entitic vol] 9.2 fL 6.2-12.0 [facility] Work Phone: Determination of erythrocyte mean corpuscular volume (MCV)on 10-02-2021 MCV (RBC) [Entitic vol] 84.9 fL 81-99 [facility] Work Phone: Hematocrit Auto (Bld) [Volum e fraction]on 10-02-2021 Hematocrit (Bld) [Volume fraction] 36.5 % 37-47 [facility] Work Phone: Ketones Test strip Ql (U)on 10-02-2021 Ketones Ql (U) Negative Negative [facility] Work Phone: Laboratory - Chemistry and C hemistry - challengeon 10-02-2021 ALP [Catalytic activity/Vol] 40 U/L 45-117 [facility] Work Phone: ALT [Catalytic activity/Vol] 26 U/L 13-56 [facility] Work Phone: CO2 [Moles/Vol] 24.0 mmol/L 21.0-32.0 [facility] Work Phone: Globulin (S) [Mass/Vol] 4.0 g/dL 2.2-4.2 [facility] Work Phone: Urea nitrogen/Creatinine [Mass ratio] 12.7 mg/mg 10-20 [facility] Work Phone: Laboratory - Hematology and Cell countson 10-02-2021 Erythrocyte distribution width (RBC) [Entitic vol] 53.5 fL 35.1-43.9 [facility] Work Phone: Erythrocyte distribution width (RBC) [Ratio] 17.2 % 11.6-14.6 [facility] Work Phone: Immature granulocytes/100 WBC (Bld) 0.100 % 0.0-0.9 [facility] Work Phone: Comment on above: IG% - Immature Granu locytes (promyelocytes, myelocytes and metamyelocytes) > 1% indicates that a LEFT SHIFT is Present. MCH (RBC) [Entitic mass] 27.0 pg 27.0-32.0 [facility] Work Phone: Nucleated RBC/100 WBC (Bld) [Ratio] 0 % 0-5 [facility] Work Phone: MCHC Auto (RBC) [Mass/Vol]on 10-02-2021 MCHC (RBC) [Mass/Vol] 31.8 g/dL 32-36 [facility] Work Phone: Mucus LM Ql (Urine sed)on Mucus Ql (Urine sed) 0 SEEN /hpf [facility] Work Phone: Nitrite Test strip Ql (U)on 10-02-2021 Nitrite Ql (U) Negative Negative [facility] Work Phone: No Panel Informationon 10-02 Estimated Creatinine Clearance Calc 84.25 ml/min [facility] Work Phone: Estimated GFR (MDRD) Amer 121 mL/min >60 [facility] Work Phone: Comment on above: GFR Calc Estimated GFR (MDRD) Non-Af Amer 100 mL/min >60 [facility] Work Phone: Comment on above: Non- GFR Calc Platelets bldon 10-02-2021 Platelets (Bld) [#/Vol] 359 10*3/uL 150-450 [facility] Work Phone: Protein Test strip Ql (U)on 10-02-2021 Protein Ql (U) Negative Negative [facility] Work Phone: Serum or plasma albumin shay urement (mass/volume)on 10-02-2021 Albumin [Mass/Vol] 3.6 g/dL 3.2-5.0 [facility] Work Phone: Serum or plasma albumin/glob ulin mass ratioon 10-02-2021 Albumin/Globulin [Mass ratio] 0.9 {ratio} 0.9-2.4 [facility] Work Phone: Serum or plasma calcium shay urement (mass/volume)on 10-02-2021 Calcium [Mass/Vol] 9.4 mg/dL 8.5-10.1 [facility] Work Phone: Serum or plasma creatinine m easurement (mass/volume)on 10-02-2021 Creatinine [Mass/Vol] 0.71 mg/dL 0.55-1.02 [facility] Work Phone: Comment on above: The validity of the calculated GFR & GFRAA in patients over 70 years has not been determined. Clinical correlation is essential. Serum or plasma urea nitroge n measurement (mass/volume)on 10-02-2021 Urea nitrogen [Mass/Vol] 9 mg/dL 7-18 [facility] Work Phone: Squamous epithelial cells de tection in urine sediment by light microscopyon 10-02-2021 Epithelial cells.squamous LM Ql (Urine sed) 0-5 SEEN /hpf 5-10 [facility] Work Phone: Thin prep Papanicolaou smear with manual screeningon 10-02-2021 Thin prep Papanicolaou smear with manual screening 16 U/L 15-37 [facility] Work Phone: Thin prep Papanicolaou smear with manual screening 5 5-15 [facility] Work Phone: Urine blood detectionon 09-05 RBC Ql (U) Negative Negative [facility] Work Phone: RBC Ql (U) 0 SEEN /hpf 0-5 [facility] Work Phone: Urine clarityon 10-02-2021 Clarity (U) Clear Clear [facility] Work Phone: Urine color determinationon 10-02-2021 Color (U) Yellow Yellow [facility] Work Phone: Urine glucose detectionon Glucose Ql (U) Negative Normal [facility] Work Phone: Urine leukocyte esterase det ection by dipstickon 10-02-2021 Leukocyte esterase Test strip Ql (U) Negative Negative [facility] Work Phone: Urine pHon 10-02-2021 pH (U) 6.0 [pH] 5.0 - 8.0 [facility] Work Phone: Urine sediment bacteria coun t by microscopy (number/high power field)on 10-02-2021 Bacteria LM.HPF (Urine sed) [#/Area] 0 /[HPF] None Seen [facility] Work Phone: Urine specific gravity measu rementon 10-02-2021 Specific gravity (U) [Rel density] 1.015 1.002-1.030 [facility] Work Phone: Urobilinogen Auto test strip Ql (U)on 10-02-2021 Urobilinogen Ql (U) Normal mg/dl Normal [facility] Work Phone: Basophil percentageon 2021 Basophil percentage 0-5 SEEN /hpf 0-5 [facility] Work Phone: Laboratory - Chemistry and C hemistry - challengeon 09-30-2021 Glucose Ql (U) Negative [facility] Work Phone: HCG ( test) Ql (U) Negative [facility] Work Phone: Specific gravity (U) [Rel density] 1.010 [facility] Work Phone: Urobilinogen (U) [Mass/Vol] Negative [facility] Work Phone: Laboratory - Hematology and Cell countson 09-30-2021 Hemoglobin Ql (U) Hemolyzed [facility] Work Phone: Laboratory - Urinalysison Protein Ql (U) Negative [facility] Work Phone: Mucus LM Ql (Urine sed)on Mucus Ql (Urine sed) 0 SEEN /hpf [facility] Work Phone: Nitrite ur dipstickon 2021 Nitrite Ql (U) Negative [facility] Work Phone: No Panel Informationon 09-30 Urine Leukocytes Negatve [facility] Work Phone: Urine Non-Hemolyzed Blood Moderate [facility] Work Phone: Protein Test strip Ql (U)on 09-30-2021 Protein Ql (U) 15 mg/dl Negative [facility] Work Phone: Squamous epithelial cells de tection in urine sediment by light microscopyon 09-30-2021 Epithelial cells.squamous LM Ql (Urine sed) 0-5 SEEN /hpf 5-10 [facility] Work Phone: Urine blood detectionon 09-04 RBC Ql (U) 50 /ul Negative [facility] Work Phone: RBC Ql (U) 0-5 SEEN /hpf 0-5 [facility] Work Phone: Urine clarityon 09-30-2021 Clarity (U) Clear [facility] Work Phone: Urine color determinationon 09-30-2021 Color (U) Yellow [facility] Work Phone: Urine glucose detectionon Glucose Ql (U) Normal mg/dl Normal [facility] Work Phone: Urine ketones detection by t est stripon 09-30-2021 Ketones Ql (U) Negative [facility] Work Phone: Urine leukocyte esterase det ection by dipstickon 09-30-2021 Leukocyte esterase Test strip Ql (U) Negative Negative [facility] Work Phone: Urine pHon 09-30-2021 pH (U) 7.0 [pH] [facility] Work Phone: Urine sediment bacteria coun t by microscopy (number/high power field)on 09-30-2021 Bacteria LM.HPF (Urine sed) [#/Area] 1 /[HPF] None Seen [facility] Work Phone: Urine specific gravity measu rementon 09-30-2021 Specific gravity (U) [Rel density] 1.015 1.002-1.030 [facility] Work Phone: Urine total bilirubin detect ion by test stripon 09-30-2021 Bilirubin Ql (U) Negative [facility] Work Phone: Urobilinogen Auto test strip Ql (U)on 09-30-2021 Urobilinogen Ql (U) Normal mg/dl Normal [facility] Work Phone: Absolute lymphocyte counton 09-22-2021 Lymphocytes Auto (Unsp spec) [#/Vol] 1.84 10*3/uL 0.83-4.51 [facility] Work Phone: Absolute reticulocyte counto n 09-22-2021 Reticulocytes (Bld) [#/Vol] 0.00 10*3/uL 0-5 [facility] Work Phone: Basophil percentageon 2021 Basophil percentage 3.0 mg/dL 2.5-4.9 [facility] Work Phone: Bilirubin [Mass/Vol] 0.20 mg/dL 0.20-1.00 [facility] Work Phone: Comment on above: For patients on eltr ombopag therapy, use of Dimension [place] TBIL is not recommended. Chloride [Moles/Vol] 105 mmol/L 98-107 [facility] Work Phone: Cholesterol [Mass/Vol] 157 mg/dL <200 [facility] Work Phone: Comment on above: <200 mg/dL Desirable 200-240 mg/dL Borderline >240 mg/dL High Risk Glucose [Mass/Vol] 102 mg/dL 74-106 [facility] Work Phone: Comment on above: Fasting Glucose resu lt from 100 to 125 mg/dL suggests IMPAIRED HOMEOSTASIS per A.D.A. criteria. Neutrophils (Bld) [#/Vol] 3.9 10*3/uL 2.0-7.7 [facility] Work Phone: Potassium [Moles/Vol] 3.9 mmol/L 3.5-5.1 [facility] Work Phone: Protein [Mass/Vol] 7.5 g/dL 6.4-8.2 [facility] Work Phone: Sodium [Moles/Vol] 137 mmol/L 136-145 [facility] Work Phone: Triglyceride [Mass/Vol] 210 mg/dL <199 [facility] Work Phone: Comment on above: The drugs N-Acetylcy steine and Metamizole may falsely depress this assay.Serum Triglycerides Reference Interval Normal <150 mg/dL Borderline high 150 - 199 mg/dL High 200 - 499 mg/dL Very High > or = 500 mg/dL WBC (Bld) [#/Vol] 6.5 10*3/uL 4.4-11.0 [facility] Work Phone: Bilirubin Test strip Ql (U)o n 09-22-2021 Bilirubin Ql (U) Negative Negative [facility] Work Phone: Blood erythrocytes count (nu mber/volume)on 09-22-2021 RBC (Bld) [#/Vol] 4.15 10*6/uL 4.2-5.4 [facility] Work Phone: Blood hemoglobin measurement (mass/volume)on 09-22-2021 Hemoglobin (Bld) [Mass/Vol] 11.1 g/dL 12.0-15.0 [facility] Work Phone: Blood platelet mean volumeon 09-22-2021 Platelet mean volume (Bld) [Entitic vol] 10.0 fL 6.2-12.0 [facility] Work Phone: Determination of erythrocyte mean corpuscular volume (MCV)on 09-22-2021 MCV (RBC) [Entitic vol] 85.1 fL 81-99 [facility] Work Phone: Direct bilirubinon 2 Bilirubin.direct [Mass/Vol] mg/dL 0.00-0.30 [facility] Work Phone: Hematocrit Auto (Bld) [Volum e fraction]on 09-22-2021 Hematocrit (Bld) [Volume fraction] 35.3 % 37-47 [facility] Work Phone: Ketones Test strip Ql (U)on 09-22-2021 Ketones Ql (U) 5 mg/dl Negative [facility] Work Phone: Laboratory - Chemistry and C hemistry - challengeon 09-22-2021 ALP [Catalytic activity/Vol] 39 U/L 45-117 [facility] Work Phone: ALT [Catalytic activity/Vol] 22 U/L 13-56 [facility] Work Phone: Cholesterol.total/Chol esterol in HDL [Mass ratio] 3.90 {ratio} [facility] Work Phone: CO2 [Moles/Vol] 23.0 mmol/L 21.0-32.0 [facility] Work Phone: Globulin (S) [Mass/Vol] 4.2 g/dL 2.2-4.2 [facility] Work Phone: Urea nitrogen/Creatinine [Mass ratio] 12.4 mg/mg 10-20 [facility] Work Phone: Laboratory - Hematology and Cell countson 09-22-2021 Erythrocyte distribution width (RBC) [Entitic vol] 53.1 fL 35.1-43.9 [facility] Work Phone: Erythrocyte distribution width (RBC) [Ratio] 17.3 % 11.6-14.6 [facility] Work Phone: MCH (RBC) [Entitic mass] 26.7 pg 27.0-32.0 [facility] Work Phone: Nucleated RBC/100 WBC (Bld) [Ratio] 0 % 0-5 [facility] Work Phone: MCHC Auto (RBC) [Mass/Vol]on 09-22-2021 MCHC (RBC) [Mass/Vol] 31.4 g/dL 32-36 [facility] Work Phone: Nitrite Test strip Ql (U)on 09-22-2021 Nitrite Ql (U) Negative Negative [facility] Work Phone: No Panel Informationon 09-22 Estimated GFR (MDRD) Amer 118 mL/min >60 [facility] Work Phone: [phone] Comment on above: GFR Calc Estimated GFR (MDRD) Non-Af Amer 98 mL/min >60 [facility] Work Phone: Comment on above: Non- GFR Calc Platelets bldon 09-22-2021 Platelets (Bld) [#/Vol] 364 10*3/uL 150-450 [facility] Work Phone: Protein Test strip Ql (U)on 09-22-2021 Protein Ql (U) Negative Negative [facility] Work Phone: Segmented neutrophils/100 WB C Auto (Bld)on 09-22-2021 Segmented neutrophils/100 WBC (Bld) 60.1 % 47-70 [facility] Work Phone: Serum or plasma albumin shay urement (mass/volume)on 09-22-2021 Albumin [Mass/Vol] 3.3 g/dL 3.2-5.0 [facility] Work Phone: Serum or plasma albumin/glob ulin mass ratioon 09-22-2021 Albumin/Globulin [Mass ratio] 0.8 {ratio} 0.9-2.4 [facility] Work Phone: Serum or plasma calcium shay urement (mass/volume)on 09-22-2021 Calcium [Mass/Vol] 9.2 mg/dL 8.5-10.1 [facility] Work Phone: Serum or plasma cholesterol in HDL measurement (mass/volume)on 09-22-2021 Cholesterol in HDL [Mass/Vol] 40 mg/dL >40 [facility] Work Phone: Comment on above: The drugs N-Acetylcy steine and Metamizole may falsely depress this assay. Reference Range HDL <40 mg/dL Low HDL Cholesterol HDL >or= 60 mg/dL High HDL Cholesterol Serum or plasma cholesterol in VLDL measurement (mass/volume)on 09-22-2021 Cholesterol in VLDL [Mass/Vol] 42 mg/dL 5-40 [facility] Work Phone: Serum or plasma creatinine m easurement (mass/volume)on 09-22-2021 Creatinine [Mass/Vol] 0.72 mg/dL 0.55-1.02 [facility] Work Phone: Comment on above: The validity of the calculated GFR & GFRAA in patients over 70 years has not been determined. Clinical correlation is essential. Serum or plasma low density lipoprotein (LDL) cholesterol measurement (mass/volume)on 09-22-2021 Cholesterol in LDL [Mass/Vol] 75 mg/dL 0-130 [facility] Work Phone: Serum or plasma urea nitroge n measurement (mass/volume)on 09-22-2021 Urea nitrogen [Mass/Vol] 9 mg/dL 7-18 [facility] Work Phone: Serum or plasma uric acid me asurement (mass/volume)on 09-22-2021 Urate [Mass/Vol] 4.9 mg/dL 2.6-6.0 [facility] Work Phone: Comment on above: The drugs N-Acetylcy steine and Metamizole may falsely depress this assay. Thin prep Papanicolaou smear with manual screeningon 09-22-2021 Thin prep Papanicolaou smear with manual screening 14 U/L 15-37 [facility] Work Phone: Thin prep Papanicolaou smear with manual screening 9 5-15 [facility] Work Phone: Thin prep Papanicolaou smear with manual screening 97 U/L 84-246 [facility] Work Phone: Urine blood detectionon 09-04 RBC Ql (U) 25 /ul Negative [facility] Work Phone: Urine clarityon 09-22-2021 Clarity (U) Sl. Cloudy Clear [facility] Work Phone: Urine color determinationon 09-22-2021 Color (U) Yellow Yellow [facility] Work Phone: Urine glucose detectionon Glucose Ql (U) Normal mg/dl Normal [facility] Work Phone: Urine leukocyte esterase det ection by dipstickon 09-22-2021 Leukocyte esterase Test strip Ql (U) 25 /ul Negative [facility] Work Phone: Urine pHon 09-22-2021 pH (U) 6.5 [pH] 5.0 - 8.0 [facility] Work Phone: Urine specific gravity measu rementon 09-22-2021 Specific gravity (U) [Rel density] 1.010 1.002-1.030 [facility] Work Phone: Urobilinogen Auto test strip Ql (U)on 09-22-2021 Urobilinogen Ql (U) Normal mg/dl Normal [facility] Work Phone: Laboratory - Microbiology an d Antimicrobial susceptibilityon 08-27-2021 SARS-CoV-2 (COVID-19) RNA APRIL+probe Ql (Unsp spec) Not detected [facility] Work Phone: No Panel Informationon 08-27 POC Nasal Swab Influenza A,B Not detected [facility] Work Phone: POC Nasal Swab RSV Not detected [facility] Work Phone: Laboratory - Microbiology an d Antimicrobial susceptibilityon 06-15-2021 SARS-CoV-2 (COVID-19) RNA APRIL+probe Ql (Unsp spec) Not detected [facility] Work Phone: No Panel Informationon 06-15 Influenza Types A,B Rapid (Clinic) Not detected [facility] Work Phone: CNOVon 08-15-2017 CNOV Office Visit ([facility]) [id number][facility] 1985 [facility] 2[facility]15 PM KERRIE GALEANA (MAT) [facility] During [...] [facility] and after [facility], blowing the nose, [...] 9 - ItchingDate Reviewed: 08/15/2017Reviewed by: Kerrie ([facility]) Kervin - Fully AssessedReason for Visit: [...] improve nasal congestion. Most drugstores in the [place] carry pseudoephedrine behind the counter, so [...] Status:Closed by KERRIE GALEANA on 08/15/17 Normal [facility] PROGRESSon 08-15-2017 Protein mass conc HNO ID: [id number] thor: Kerrie ([facility]) Jocelyne: (none)Author Type: Nurse PractitionerType: Progress [...] or [facility], unspecified as to episode of care(908.00) 2009 Gestational diabetes- Health examination of defined [...] analgesia.- Discussed expected course of illnessKerrie Galeana APRN.CLINICAL NURSING INSTRUCTOR Normal [facility] Culture, urine Bacteria identified Cx Nom (U) Positive [facility] Work Phone: Vital Signs Date Time Vital Sign Value Performing Clinician Faci [facility]an 11-24-2022 08:40-0400 Body height 154.94 cm BULK SEALER OPERATOR-C Franci Pena BULK SEALER OPERATOR Work Phone: [facility] 11-24-2022 08:38-0400 Body mass index (BMI) [Ratio] 34.7 kg/m2 BULK SEALER OPERATOR-C Franci Pena BULK SEALER OPERATOR Work Phone: [facility] 11-24-2022 08:38-0400 Body weight 83.46 kg BULK SEALER OPERATOR-C Franci Pena BULK SEALER OPERATOR Work Phone: [facility] 11-24-2022 08:38-0400 Diastolic blood pressure 87 mm[Hg] BULK SEALER OPERATOR-C Franci Pena BULK SEALER OPERATOR Work Phone: [facility] 11-24-2022 08:38-0400 Systolic blood pressure 130 mm[Hg] BULK SEALER OPERATOR-C Franci Pena BULK SEALER OPERATOR Work Phone: [facility] 10-24-2022 10:57-0400 Body height 154.94 cm BULK SEALER OPERATOR-C Franci Pena BULK SEALER OPERATOR Work Phone: [facility] 10-24-2022 10:57-0400 Body mass index (BMI) [Ratio] 35.3 kg/m2 BULK SEALER OPERATOR-C Franci Pena BULK SEALER OPERATOR Work Phone: [facility] 10-24-2022 10:57-0400 Body weight 84.82 kg BULK SEALER OPERATOR-Bethany Pena BULK SEALER OPERATOR Work Phone: [facility] 01-14-2022 09:50-0500 Body height 154.94 cm BULK SEALER OPERATOR-Bethany Pena BULK SEALER OPERATOR Work Phone: [facility] 01-14-2022 09:50-0500 Body mass index (BMI) [Ratio] 33.7 kg/m2 BULK SEALER OPERATOR-C rFanci Pena BULK SEALER OPERATOR Work Phone: [facility] 01-14-2022 09:50-0500 Body weight 80.9 kg BULK SEALER OPERATOR-C Franci Lorson BULK SEALER OPERATOR Work Phone: [facility] 01-14-2022 09:50-0500 Diastolic blood pressure 89 mm[Hg] BULK SEALER OPERATOR-C Franci Lorson BULK SEALER OPERATOR Work Phone: [facility] 01-14-2022 09:50-0500 Systolic blood pressure 146 mm[Hg] BULK SEALER OPERATOR-C Franci Lorson BULK SEALER OPERATOR Work Phone: [facility] 01-07-2022 11:00-0400 Body mass index (BMI) [Ratio] 33.3 kg/m2 BULK SEALER OPERATOR-C Francimendez Pena BULK SEALER OPERATOR Work Phone: [facility] 01-07-2022 11:00-0400 Body weight 80.05 kg BULK SEALER OPERATOR-C Franci Pena BULK SEALER OPERATOR Work Phone: [facility] 01-07-2022 11:00-0400 Diastolic blood pressure 93 mm[Hg] BULK SEALER OPERATOR-C Franci Pena BULK SEALER OPERATOR Work Phone: [facility] 01-07-2022 11:00-0400 Systolic blood pressure 144 mm[Hg] BULK SEALER OPERATOR-C Franci Pena BULK SEALER OPERATOR Work Phone: [facility] 12-22-2021 10:33-0400 Body height 154.94 cm BULK SEALER OPERATOR-C Franci Pena BULK SEALER OPERATOR Work Phone: [facility] Work Phone: 12-22-2021 10:27-0400 Body mass index (BMI) [Ratio] 33.5 kg/m2 BULK SEALER OPERATOR-C Franci Pena BULK SEALER OPERATOR Work Phone: [facility] 12-22-2021 10:27-0400 Body weight 80.39 kg BULK SEALER OPERATOR-C Franci Pena BULK SEALER OPERATOR Work Phone: [facility] 12-22-2021 10:27-0400 Diastolic blood pressure 88 mm[Hg] BULK SEALER OPERATOR-C Franci Pena BULK SEALER OPERATOR Work Phone: [facility] 12-22-2021 10:27-0400 Systolic blood pressure 133 mm[Hg] BULK SEALER OPERATOR-C Franci Pena BULK SEALER OPERATOR Work Phone: [facility] 12-08-2021 14:27-0400 Body height 154.94 cm BULK SEALER OPERATOR-C Franci Pena BULK SEALER OPERATOR Work Phone: [facility] Work Phone: 12-08-2021 14:25-0400 Body mass index (BMI) [Ratio] 32.9 kg/m2 BULK SEALER OPERATOR-C Franci Pena BULK SEALER OPERATOR Work Phone: [facility] 12-08-2021 14:25-0400 Body weight 79.15 kg BULK SEALER OPERATOR-C Franci Pena BULK SEALER OPERATOR Work Phone: [facility] 12-08-2021 14:25-0400 Diastolic blood pressure 87 mm[Hg] BULK SEALER OPERATOR-C Franci Pena BULK SEALER OPERATOR Work Phone: [facility] 12-08-2021 14:25-0400 Systolic blood pressure 128 mm[Hg] BULK SEALER OPERATOR-C Franci Pena BULK SEALER OPERATOR Work Phone: [facility] 11-18-2021 09:16-0400 Body height 154.94 cm BULK SEALER OPERATOR-C Franci Pena BULK SEALER OPERATOR Work Phone: [facility] Work Phone: 11-18-2021 09:16-0400 Body mass index (BMI) [Ratio] 33.3 kg/m2 BULK SEALER OPERATOR-C Franci Pena BULK SEALER OPERATOR Work Phone: [facility] Work Phone: 11-18-2021 09:16-0400 Body weight 79.94 kg BULK SEALER OPERATOR-C Franci Pena BULK SEALER OPERATOR Work Phone: [facility] Work Phone: 11-18-2021 09:16-0400 Diastolic blood pressure 85 mm[Hg] BULK SEALER OPERATOR-C Franci Pena BULK SEALER OPERATOR Work Phone: [facility] Work Phone: 11-18-2021 09:16-0400 Systolic blood pressure 123 mm[Hg] BULK SEALER OPERATOR-C Franci Pena BULK SEALER OPERATOR Work Phone: [facility] Work Phone: 10-02-2021 11:39-0400 Body temperature 98.2 [degF] BULK SEALER OPERATOR-C Franci Pena BULK SEALER OPERATOR Work Phone: [facility] Work Phone: 10-02-2021 11:39-0400 Diastolic blood pressure 75 mm[Hg] BULK SEALER OPERATOR-C Franci Pena BULK SEALER OPERATOR Work Phone: [facility] Work Phone: 10-02-2021 11:39-0400 Heart rate 64 /min BULK SEALER OPERATOR-C Franci Pena BULK SEALER OPERATOR Work Phone: [facility] Work Phone: 10-02-2021 11:39-0400 Respiratory rate 18 /min BULK SEALER OPERATOR-C Franci Pena BULK SEALER OPERATOR Work Phone: [facility] Work Phone: 10-02-2021 11:39-0400 SaO2% (BldA) [Mass fraction] 99 % BULK SEALER OPERATOR-C Franci Pena BULK SEALER OPERATOR Work Phone: [facility] Work Phone: 10-02-2021 11:39-0400 Systolic blood pressure 113 mm[Hg] BULK SEALER OPERATOR-C Franci Pena BULK SEALER OPERATOR Work Phone: [facility] Work Phone: 10-02-2021 09:44-0400 Body height 154.94 cm BULK SEALER OPERATOR-C Franci Pena BULK SEALER OPERATOR Work Phone: [facility] Work Phone: 10-02-2021 09:44-0400 Body mass index (BMI) [Ratio] 34.5 kg/m2 BULK SEALER OPERATOR-C Franci Pena BULK SEALER OPERATOR Work Phone: [facility] Work Phone: 10-02-2021 09:44-0400 Body weight 83 kg BULK SEALER OPERATOR-C Franci Pena BULK SEALER OPERATOR Work Phone: [facility] Work Phone: 09-30-2021 17:09-0400 Body temperature 97.1 [degF] BULK SEALER OPERATOR-C Franci Pena BULK SEALER OPERATOR Work Phone: [facility] Work Phone: 09-30-2021 17:09-0400 Diastolic blood pressure 82 mm[Hg] BULK SEALER OPERATOR-C Franci Pena BULK SEALER OPERATOR Work Phone: [facility] Work Phone: 09-30-2021 17:09-0400 Heart rate 127 /min BULK SEALER OPERATOR-C Franci Pena BULK SEALER OPERATOR Work Phone: [facility] Work Phone: 09-30-2021 17:09-0400 Respiratory rate 16 /min BULK SEALER OPERATOR-C Franci Pena BULK SEALER OPERATOR Work Phone: [facility] Work Phone: 09-30-2021 17:09-0400 SaO2% (BldA) [Mass fraction] 98 % BULK SEALER OPERATOR-C Franci Pena BULK SEALER OPERATOR Work Phone: [facility] Work Phone: 09-30-2021 17:09-0400 Systolic blood pressure 140 mm[Hg] BULK SEALER OPERATOR-C Franci Pena BULK SEALER OPERATOR Work Phone: [facility] Work Phone: 06-15-2021 17:31-0400 Body temperature 98.1 [degF] BULK SEALER OPERATOR-C Franci Pena BULK SEALER OPERATOR Work Phone: [facility] Work Phone: 06-15-2021 17:31-0400 Diastolic blood pressure 80 mm[Hg] BULK SEALER OPERATOR-C Franci Pena BULK SEALER OPERATOR Work Phone: [facility] Work Phone: 06-15-2021 17:31-0400 Heart rate 116 /min BULK SEALER OPERATOR-C Franci Pena BULK SEALER OPERATOR Work Phone: [facility] Work Phone: 06-15-2021 17:31-0400 Respiratory rate 16 /min BULK SEALER OPERATOR-C Franci Pena BULK SEALER OPERATOR Work Phone: [facility] Work Phone: 06-15-2021 17:31-0400 SaO2% (BldA) [Mass fraction] 98 % BULK SEALER OPERATOR-C Franci Pena BULK SEALER OPERATOR Work Phone: [facility] Work Phone: 06-15-2021 17:31-0400 Systolic blood pressure 140 mm[Hg] BULK SEALER OPERATOR-C Franci Pena BULK SEALER OPERATOR Work Phone: [facility] Work Phone: Encounters Encounter Date Encounter Type Care Provider Facility Start: 12-05-2023 End: 12-05-2023 ambulatory rFanci Pena BULK SEALER OPERATOR Facility:[facility] Start: 05-31-2023 End: 06-01-2023 ambulatory FRANCI PENA PRINCIPAL ACCOUNTS CLERK-CLINICAL NURSING INSTRUCTOR Facility:B Start: 05-31-2023 End: 05-31-2023 Patient encounter procedure FRANCI PENA PRINCIPAL ACCOUNTS CLERK-CLINICAL NURSING INSTRUCTOR [facility] Start: 05-17-2023 End: 05-22-2023 ambulatory FRANCI PENA PRINCIPAL ACCOUNTS CLERK-CLINICAL NURSING INSTRUCTOR Facility:[facility] Start: 05-17-2023 End: 05-21-2023 Outreach Lab FRANCI PENA PRINCIPAL ACCOUNTS CLERK-CLINICAL NURSING INSTRUCTOR [facility] Start: 05-11-2023 End: 05-16-2023 ambulatory DALLAS JARVIS PRINCIPAL ACCOUNTS CLERK-CLINICAL NURSING INSTRUCTOR Facility:[facility] Start: 05-11-2023 End: 05-15-2023 Outreach Lab BRANDONBRADY JARVIS PRINCIPAL ACCOUNTS CLERK-CLINICAL NURSING INSTRUCTOR [facility] Start: 05-05-2023 ambulatory Franci Pena BULK SEALER OPERATOR Facil ity:[facility] Start: 04-14-2023 End: 04-14-2023 ambulatory Franci Pena BULK SEALER OPERATOR Facility:[facility] Start: 11-24-2022 End: 11-24-2022 ambulatory BULK SEALER OPERATOR-C Franci Pena BULK SEALER OPERATOR Work Phone: [facility] Work Phone: Start: 11-24-2022 End: 11-24-2022 Patient encounter procedure BULK SEALER OPERATOR-C Franci Pena BULK SEALER OPERATOR Work Phone: [facility]Laboratory Work Phone: Start: 11-24-2022 End: 11-24-2022 Patient encounter procedure BULK SEALER OPERATOR-C Franci Pena BULK SEALER OPERATOR Work Phone: [facility] Work Phone: Start: 10-24-2022 End: 10-24-2022 Patient encounter procedure BULK SEALER OPERATOR-C Franci Pena BULK SEALER OPERATOR Work Phone: [facility] Work Phone: Start: 10-24-2022 End: 10-24-2022 ambulatory BULK SEALER OPERATOR-C Franci Pena BULK SEALER OPERATOR Work Phone: [facility] Work Phone: Start: 10-24-2022 End: 10-24-2022 Patient encounter procedure BULK SEALER OPERATOR-C Franci Pena BULK SEALER OPERATOR Work Phone: [facility]-Radiology, [facility] Work Phone: Start: 10-04-2022 Registered Referred BULK SEALER OPERATOR-C Ashley Pena BULK SEALER OPERATOR Work Phone: [facility] Start: 10-04-2022 End: 10-04-2022 ambulatory BULK SEALER OPERATOR-C Franci Pena BULK SEALER OPERATOR Work Phone: [facility] Work Phone: Start: 10-04-2022 End: 10-04-2022 Patient encounter procedure BULK SEALER OPERATOR-C Franci Pena BULK SEALER OPERATOR Work Phone: [facility]Laboratory Work Phone: Start: 06-17-2022 End: 06-17-2022 Patient encounter procedure BULK SEALER OPERATOR-C Franci Pena BULK SEALER OPERATOR Work Phone: [facility] Virtual Visit Work Phone: Start: 2022 End: 2022 ambulatory [facility] Work Phone: Start: 2022 End: 2022 Patient encounter procedure [facility]Outpatient Breast [facility] Start: 03-09-2022 End: 03-09-2022 ambulatory BULK SEALER OPERATOR-C Franci Pena BULK SEALER OPERATOR Work Phone: [facility] Work Phone: Start: 03-09-2022 End: 03-09-2022 Patient encounter procedure BULK SEALER OPERATOR-C Franci Pena BULK SEALER OPERATOR Work Phone: [facility]Laboratory Start: 01-14-2022 End: 01-14-2022 Patient encounter procedure BULK SEALER OPERATOR-C Franci Pena BULK SEALER OPERATOR Work Phone: [facility] Start: 01-07-2022 End: 01-07-2022 Patient encounter procedure BULK SEALER OPERATOR-C Franci Pena BULK SEALER OPERATOR Work Phone: [facility] Start: 12-30-2021 End: 12-30-2021 ambulatory BULK SEALER OPERATOR-C Franci Pena BULK SEALER OPERATOR Work Phone: [facility] Work Phone: Start: 12-30-2021 End: 12-30-2021 Patient encounter procedure BULK SEALER OPERATOR-C Franci Pena BULK SEALER OPERATOR Work Phone: [facility]-Ultrasound, [facility] Start: 12-22-2021 End: 12-22-2021 Patient encounter procedure BULK SEALER OPERATOR-C Franci Pena BULK SEALER OPERATOR Work Phone: [facility] Start: 12-15-2021 End: 12-15-2021 ambulatory BULK SEALER OPERATOR-C Franci Pena BULK SEALER OPERATOR Work Phone: [facility] Work Phone: Start: 12-15-2021 End: 12-15-2021 Patient encounter procedure BULK SEALER OPERATOR-C Franci Pena BULK SEALER OPERATOR Work Phone: [facility] Ultrasound Start: 12-08-2021 End: 12-08-2021 Patient encounter procedure BULK SEALER OPERATOR-C Franci Pena BULK SEALER OPERATOR Work Phone: [facility] Start: 11-18-2021 End: 11-18-2021 ambulatory BULK SEALER OPERATOR-C Franci Pena BULK SEALER OPERATOR Work Phone: [facility] Work Phone: Start: 11-18-2021 End: 11-18-2021 Patient encounter procedure BULK SEALER OPERATOR-C Franci Pena BULK SEALER OPERATOR [facility] Start: 11-18-2021 End: 11-18-2021 Patient encounter procedure BULK SEALER OPERATOR-C Franci Pena BULK SEALER OPERATOR Work Phone: [facility] Start: 10-06-2021 End: 10-06-2021 Patient encounter procedure BULK SEALER OPERATOR-C Franci Pena BULK SEALER OPERATOR Work Phone: [facility] Start: 10-02-2021 End: 10-02-2021 Emergency department patient visit BULK SEALER OPERATOR-C Franci Pena BULK SEALER OPERATOR Work Phone: [facility]Emergency Department Start: 09-30-2021 End: 09-30-2021 Patient encounter procedure BULK SEALER OPERATOR-C Franci Pena BULK SEALER OPERATOR [facility] Start: 09-30-2021 End: 09-30-2021 Patient encounter procedure BULK SEALER OPERATOR-C Franci Pena BULK SEALER OPERATOR Work Phone: [facility] Start: 09-22-2021 Registered Referred BULK SEALER OPERATOR-C Ashley Pena BULK SEALER OPERATOR Work Phone: [facility] Start: 08-27-2021 End: 08-27-2021 Patient encounter procedure BULK SEALER OPERATOR-C Franci Pena BULK SEALER OPERATOR Work Phone: [facility] Start: 08-19-2021 End: 08-19-2021 Patient encounter procedure BULK SEALER OPERATOR-C Franci Pena BULK SEALER OPERATOR Work Phone: [facility] Start: 08-04-2021 End: 08-04-2021 Patient encounter procedure BULK SEALER OPERATOR-C Franci Pena BULK SEALER OPERATOR Work Phone: [facility] Start: 06-15-2021 End: 06-15-2021 Patient encounter procedure BULK SEALER OPERATOR-C Franci Pena BULK SEALER OPERATOR Work Phone: [facility] Start: 06-15-2021 End: 06-15-2021 Patient encounter procedure BULK SEALER OPERATOR-C Franci Pena BULK SEALER OPERATOR Work Phone: [facility] Start: 08-15-2017 End: 12-30-2017 Patient encounter [facility] Procedures Date Procedure Procedure Detail Performing Clinician Start: 10-24-2022 Plain X-ray of shoulder BULK SEALER OPERATOR-C Franci Pena BULK SEALER OPERATOR Work Phone: Start: 2022 Screening mammography Start: 12-30-2021 Pelvic echography BULK SEALER OPERATOR-C Franci Pena BULK SEALER OPERATOR Work Phone: Start: 12-30-2021 Transvaginal echography BULK SEALER OPERATOR-C Franci Pena BULK SEALER OPERATOR Work Phone: Start: 12-15-2021 Pelvic echography BULK SEALER OPERATOR-C Franci Pena BULK SEALER OPERATOR Work Phone: Start: 12-15-2021 Transvaginal echography BULK SEALER OPERATOR-C Franci Pena BULK SEALER OPERATOR Work Phone: Start: 10-02-2021 CT of abdomen and pe lvis without contrast BULK SEALER OPERATOR-Bethany Pena BULK SEALER OPERATOR Work Phone: Start: 03-06-2013 section DALLAS JARVIS PRINCIPAL ACCOUNTS CLERK-CLINICAL NURSING INSTRUCTOR Entire right lower l eg (body structure) [place]ALL[place] JARVIS PRINCIPAL ACCOUNTS CLERK-CLINICAL NURSING INSTRUCTOR Comment on above: surgery at age 14 Urine culture BULK SEALER OPERATOR-C Franci earl BULK SEALER OPERATOR Work Phone: Plan of Treatment Date Care Activity Detail Author Start: 11-18-2021 Liquid based cervica l cytology screening [facility] Work Phone: MG Breast - bilatera l Screening [facility] Work Phone: Path report.final Dx Spec [facility] Work Phone: Patient Education ED Flank Pain, Uncertain Cause ED Pelvic Pain, Unknown Cause [facility] Work Phone: Patient referral [facility] Work Phone: [facility] Immunizations Immunization Date Immunization Notes Care Provider Dina merritt 12-22-2022 influenza virus vaccine, unspecified formulation [employer] PRINCIPAL ACCOUNTS CLERK-CLINICAL NURSING INSTRUCTOR [facility] 01-31-2022 influenza virus vaccine, unspecified formulation [employer] PRINCIPAL ACCOUNTS CLERK-CLINICAL NURSING INSTRUCTOR [facility] 01-31-2022 influenza, injectabl e, quadrivalent, preservative free BULK SEALER OPERATOR-C Franci Pena BULK SEALER OPERATOR Work Phone: [facility] 01-31-2022 influenza, seasonal, injectable BULK SEALER OPERATOR-C Franci Pena BULK SEALER OPERATOR Work Phone: [facility] 02-22-2021 Covid (Pfizer) BULK SEALER OPERATOR-C Franci Pena BULK SEALER OPERATOR Work Phone: [facility] 02-01-2021 Covid (Pfizer) BULK SEALER OPERATOR-C Franci Pena BULK SEALER OPERATOR Work Phone: [facility] 12-09-2020 influenza virus vaccine, unspecified formulation [employer] [place] PRINCIPAL ACCOUNTS CLERK-CLINICAL NURSING INSTRUCTOR [facility] 12-09-2020 influenza, injectabl e, quadrivalent, preservative free BULK SEALER OPERATOR-C Franci Pena BULK SEALER OPERATOR Work Phone: [facility] 12-09-2020 influenza, seasonal, injectable BULK SEALER OPERATOR-C Farnci Pena BULK SEALER OPERATOR Work Phone: [facility] 03-11-2020 influenza virus vaccine, unspecified formulation [facility] PRINCIPAL ACCOUNTS CLERK-CLINICAL NURSING INSTRUCTOR [facility] 03-11-2020 influenza, injectabl e, quadrivalent, preservative free BULK SEALER OPERATOR-C Franci Becky BULK SEALER OPERATOR Work Phone: [facility] 03-11-2020 influenza, seasonal, injectable BULK SEALER OPERATOR-C Franci Becky BULK SEALER OPERATOR Work Phone: [facility] 01-06-2014 influenza virus vaccine, unspecified formulation [facility] PRINCIPAL ACCOUNTS CLERK-CLINICAL NURSING INSTRUCTOR [facility] Payers Date Payer Category Payer Unknown [id number] 2022 Self-pay [id number] 2022 Unknown [id number] 1987 Unknown [id number] [id number] 1987 Unknown [id number] [id number] 1987 Unknown [id number] [id number] Unknown [id number] Unknown [id number] Unknown [id number] Unknown [id number] [id number] [id number] Unknown [id number] [id number] Unknown [id number] [id number] [id number] Social History Date Type Detail Facility [facility] Work Phone: Start: 10-02-2021 End: 11-24-2022 Tobacco smoking status NHIS Unknown if ever smoked [facility] Start: 1985 Sex Assigned At Female [facility] Start: 08-07-2019 Tobacco smoking status Never s moked tobacco (finding) [facility] Goals Date Patient Goal Desired Activity /State [...] Locations *1: This test was performed at: [facility], [address] [place] [address], [facility] , [facility] ([place]) 05-18-2023 Note . MICRO - Microbiology PROCEDURE: [...] Locations *1: This test was performed at: [address], [address]- , [facility] ([place]) 05-13-2023 Note . MICRO - Microbiology PROCEDURE: [...] Locations *1: This test was performed at: [address], [facility] , [facility] ([place]) 11-18-2021 Note [facility] Work Phone: Pap Smear Specimen Adequacy November 18, 2021 12:39pm Comment . Satisfactory for evaluation. Endocervical and/or squamous metaplasticcells (endocervical component) are present. Comment on above: Satisfactory for jaylen luation. Endocervical and/or squamous metaplasticcells (endocervical component) are present. 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 COVID-19 POSSIBLE UTI URINARY S/S COVID TEST/ILL X3DAYS Reason for Visit Acute bronchitis Contact with or suspected exposure to other viral communicable disease Back pain Segmental and somatic dysfunction of cervical region Segmental and somatic dysfunction of lumbar region Segmental and somatic dysfunction of pelvic region Segmental and somatic dysfunction of thoracic region Hematuria [facility] Work Phone: Chief complaint+Reason for visit Narrative* Chief Complaint 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 COVID-19 POSSIBLE UTI URINARY S/S COVID TEST/ILL X3DAYS Annual (BOX PULLER) Reason for Visit Back pain Segmental and somatic dysfunction of cervical region Segmental and somatic dysfunction of lumbar region Segmental and somatic dysfunction of pelvic region Segmental and somatic dysfunction of thoracic region Hematuria Encounter for routine gynecological examination [facility] Work Phone: Chifc complaint+Reason for visit Narrative* Chief Complaint ADJUSTMENT COVID-19 POSSIBLE UTI URINARY S/S COVID TEST/ILL X3DAYS Annual (BOX PULLER) VINICIO INSERTION CHECK IUD PLACEMENT Reason for Visit Back pain Segmental and somatic dysfunction of cervical region Segmental and somatic dysfunction of lumbar region Segmental and somatic dysfunction of pelvic region Segmental and somatic dysfunction of thoracic region Hematuria Encounter for routine gynecological examination Encounter for IUD insertion [facility] Work Phone: Evaluation + Plan note Future Appointments Appointment Date:11/13/2023 10:00:00 AM Scheduled Provider:FRANCI PENA Location:[facility] Appointment Type: Wellness Annual Future Scheduled Tests Laboratory* Antinuclear Antibody Screen, Serum 09/28/22 * Iron Level 12/12/22 * Thyroid Stimulating Hormone 09/28/22 * Thyroid Stimulating Hormone 12/12/22 * Free T4 09/28/22 * A1C Hemoglobin 05/10/23 * Rheumatoid Factor 09/28/22 * Lipid Profile 09/28/22 * Complete Metabolic Panel 09/28/22 * Complete Metabolic Panel 05/10/23 * TIBC 12/12/22 [facility] Evaluation + Plan note Future Appointments Appointment Date:06/06/2023 10:15:00 AM Scheduled Provider:SUE NICHOLAS MD Location:[facility]N ZULETA Appointment Type:JOCELYN BULK SEALER OPERATOR Appointment Date:11/13/2023 10:00:00 AM Scheduled Provider:FRANCI PENA [...] Complete Metabolic Panel 05/10/23 * TIBC 12/12/22 [facility] Evsnfation note* Diagnosis Onset Date Resolution Status Acute bronchitis acute Contact with or suspected ex posure to other viral communicable disease acute Back pain acute Segmental and somatic dysfunction of cervical region acute Segmental and somatic dysfunction of lumbar region acute Segmental and somatic dysfunction of pelvic region acute Segmental and somatic dysfunction of thoracic region acute Hematuria acute [facility] Work Phone: evaluation note* Diagnosis Onset Date Resolution Status Back pain acute Segmental and somatic dysfunction of cervical region acute Segmental and somatic dysfunction of lumbar region acute Segmental and somatic dysfunction of pelvic region acute Segmental and somatic dysfunction of thoracic region acute Hematuria acute Encounter for routine gynecological examination noneactive [facility] Work Phone: Evaluation note* Diagnosis Onset Date Resolution Status Back pain acute Segmental and somatic dysfunction of cervical region acute Segmental and somatic dysfunction of lumbar region acute Segmental and somatic dysfunction of pelvic region acute Segmental and somatic dysfunction of thoracic region acute Hematuria acute Encounter for routine gynecological examination noneactive Encounter for IUD insertion acute [facility] Work Phone: Evaluation note* Diagnosis Onset Date Resolution Status Hematuria acute Encounter for routine gynecological examination noneactive Encounter for IUD insertion acute Encounter for IUD insertion acute Encounter for IUD removal ac niki [facility] Work Phone: Evaluation note* Diagnosis Onset Date Resolution Status Encounter for IUD insertion acute Encounter for IUD insertion acute Encounter for IUD removal ac niki Encounter for IUD removal ac niki Contraceptive management acu te [facility] Work Phone: Evaluation noteNo assessment information available [facility] Work Phone: Evaluation note* Diagnosis Onset Date Resolution Status Acute conjunctivitis, left eye acute [facility] Work Phone: Evaluation note* Diagnosis Onset Date Resolution Status Subacromial impingement of right shoulder noneactive [facility] Work Phone: Evaluation note* Diagnosis Onset Date Resolution Status Subacromial impingement of right shoulder noneactive Encounter for routine gynecological examination noneactive [facility] Work Phone: Hospital course Narrative No data available for this section [facility] Hospital Discharge instructions No data available for this section [facility] Progress note No data available for this section [facility] Summary Purpose Family History No Family History [...] No October 02, 2021 9:58am Power of Athletic Equipment Custodian No October 02 9:58am Advance Directive Response Recorded Date/ Time Living Will No October 02, 2021 8:58am Power of Athletic Equipment Custodian No October 02 8:58am Chief Complaint and Reason for Visit Chief Complaint POSSIBLE UTI URINARY S/S COVID TEST/ILL X3DAYS Annual (BOX PULLER) VINICIO INSERTION CHECK IUD PLACEMENT IUD replacement [...] 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 Lane Mcgee MD Family Provider Active Franci Pena BULK SEALER OPERATOR, BULK SEALER OPERATOR-C Primary Care Provider Active Team Status: Inactive Member Role Status Dates Franci Pena NP, BULK SEALER OPERATOR-C Primary Care Provider, Referri ng Provider Active Dr. Eliana Camacho DO Attending Provider Activ e Team Status: Inactive Member Role Status Dates Franci Pena NP, BULK SEALER OPERATOR-C Primary Care Provider Active Dr. Eliana Camacho DO Attending Provider Activ e Team Status: Inactive Member Role Status Dates Franci Pena NP, BULK SEALER OPERATOR-C Primary Care Provider Active Dr. Eliana Camacho DO Attending Provider, Refe rring Provider Active Team Status: Inactive Member Role Status Dates Franci Pena NP, BULK SEALER OPERATOR-C Primary Care Provider Active Dr. Lewis Cabrera MD Attending Provider, Referring Pro vider Active Team Status: Inactive Member Role Status Dates Franci Pena NP, BULK SEALER OPERATOR-C Primary Care Provider Active Rex DAVILA, PA Attending Provider Active Team Status: Inactive Member Role Status Dates Franci Pena NP, BULK SEALER OPERATOR-C Primary Care Pro vider, Attending Provider, Referring Provider Active Team Status: Active Member Role Status Dates Franci Pena NP, BULK SEALER OPERATOR-C Primary Care Provider Active Health Risk Assessment Attending Provider, Referring Esteban cates Active Team Status: Inactive Member Role Status Dates Franci Pena NP, BULK SEALER OPERATOR-C Primary Care Provider, Referri ng Provider Active Soraya Lust PA, PA Attending Provider Active Team Status: Inactive Member Role Status Dates Franci Pena BULK SEALER OPERATOR, BULK SEALER OPERATOR-C Primary Care Provider Active GIOVANNI Stevens Attending [...] BE BASED ON THE PRIMARY CLINICAL RECORDS. [facility] [employer] [facility]. provides no warranty or guarantee of the accuracy or completeness of information in this document.
== END | disposition home or self-care (01) ==
LOC: LAB 11:09
PROVIDERS: PCP Nurse Practitioner Family; Referring Provider Nurse Practitioner Family; Visit Provider Nurse Practitioner Family
DX: R63.5 Abnormal weight gain (principal)
CPT/HCPCS: 36415; 84439; 84443

== ENCOUNTER → 2024-12-23 | Outpatient (CLI) | payer OTHER, SELFPAY ==
--- NOTE | 2024-12-23 10:09 | BI_ITS ---
EXAM: SCRN MAMM (CAD)W/MAXIM BILAT DATE: 12/23/2024 CLINICAL HISTORY: F, Age 39 y/o , SCREENING TECHNIQUE: Procedure Code: [id number] Modality: MG Procedure: SCRN MAMM (CAD)W/MAXIM BILAT COMPARISON: Prior exam(s) were compared FINDINGS: TISSUE DENSITY: The breasts are heterogeneously dense, which may obscure small masses. Bilateral Breast Mammographic Findings: No suspicious masses, calcifications or other abnormalities are identified. BI/SCRN MAMM (CAD)W/MAXIM BILAT IMPRESSION: No mammographic evidence of malignancy in either breast. OVERALL FINAL ASSESSMENT BI-RADS 1: NEGATIVE. RECOMMENDATION: Routine annual follow-up in 1 Year Additional Recommendation none A letter with findings and recommendations will be mailed to the patient. Reading Location: [id number]
== END | disposition home or self-care (01) ==
LOC: OPBI 10:07
PROVIDERS: PCP Nurse Practitioner Family; Referring Provider Nurse Practitioner Family; Visit Provider Nurse Practitioner Family
DX: Z12.31 Encounter for screening mammogram for malignant neoplasm of breast (principal)
CPT/HCPCS: 77063; 77067

== ENCOUNTER → 2025-01-08 | Outpatient (CLI) | payer OTHER, SELFPAY ==
[2025-01-08 13:32] LABS: Hematocrit 38.3 % (37-47); Hemoglobin 13.1 g/dL (12.0-15.0); Mean Corp Hgb Conc 34.2 g/dL (32-36); Mean Corpuscular Volume 96.5 fL (81-99); Mean Platelet Vol. 9.9 fl (6.2-12.0); Platelet Count 315 K/mm3 (150-450); RBC Distribution Width CV 12.7 % (11.6-14.6); RBC Distribution Width SD 45.1 fl (35.1-43.9); Red Blood Count 3.97 M/mm3 (4.2-5.4); White Blood Count 7.0 K/mm3 (4.4-11.0)
[2025-01-08 14:16] LABS: Ferritin 64 ng/mL (22-378); Iron 109 ug/dL (50-170); Iron Binding Capacity,Total 381 ug/dL (250-450); Iron Binding Capacity,Unsat 272 ug/dL (228-428)
== END | disposition home or self-care (01) ==
PROVIDERS: PCP Nurse Practitioner Family; Referring Provider Nurse Practitioner Family; Visit Provider Nurse Practitioner Family
DX: R63.5 Abnormal weight gain (principal); N92.0 Excessive and frequent menstruation with regular cycle
CPT/HCPCS: 36415; 82728; 83540; 83550; 84439; 84443; 85027

== ENCOUNTER → 2025-01-10 | Outpatient (CLI) | payer OTHER, SELFPAY ==
--- NOTE | 2025-01-10 13:14 | US_ITS ---
PROCEDURE: PELVIC W/ TRANSVAGINAL REASON FOR EXAM: FULLNESS LEFT ADNEXA ? FIBROID TECHNIQUE: Procedure Code: [id number] Modality: US Procedure: PELVIC W/ TRANSVAGINAL COMPARISON: None FINDINGS: LMP: December 30, 2024. Measurements: Uterus: 9.3 cm x 6.3 cm x 5.7 cm with a volume of 176.2 mL Endometrial Thickness: 4 mm. It is hyperechoic. Right Ovary: 3.4 cm x 2.6 cm x 2.2 cm with a volume of 10.5 mL. Left Ovary: 3.4 cm x 3.3 cm x 3.2 cm with a volume of 18.9 mL. TRANSABDOMINAL: Uterus: Heterogeneous echotexture in keeping with fibroid change although no focal fibroid is seen. Endometrium: Unremarkable. Right ovary: Normal size and echotexture. Left ovary: There is a 2.8 cm 3.1 cm 2.7 cm benign-appearing cyst. Other: No large pelvic mass identified. Transvaginal sonography was performed to better visualize the endometrium. TRANSVAGINAL: Uterus: Retroverted. Heterogeneous echotexture of the myometrium suggestive of fibroid change although no focal fibroid is seen. Endometrium: Normal echotexture. Right ovary: Normal size and echotexture. Left ovary: 2.8 cm 3.1 cm 2.7 cm simple cyst. Other adnexal findings: None. Cul-de-sac: No free intraperitoneal fluid identified. Tenderness: No tenderness US/Pelvic w/ Transvaginal IMPRESSION: Left ovarian cyst. Heterogeneous echotexture of the myometrium in keeping with fibroid change alth ough no focal fibroid is seen. Reading Location: [id number]
--- OUTSIDE RECORDS SUMMARY | 2025-01-10 14:42 | XMS RPT_ITS | CCD ---
Author Organization [facility] Care Team Providers Care Sales Representative Education Courses Name Role Phone Becky MATERIAL EXPEDITER, MATERIAL EXPEDITER-C Franci Primary Care Provider [phone] GIOVANNI Hendrix Attending Provider Yesyson MATERIAL EXPEDITER, MATERIAL EXPEDITER-C Franci Referring Provider [phone] [phone] CULP, MATERIAL EXPEDITER-C Erlinda Slater Attending Provider [phone] Dr. Em Lazar Attending Provider [phone] GIOVANNI Sabillon Attending Provider Lorson MATERIAL EXPEDITER, MATERIAL EXPEDITER-C Franci Primary Care Provider [place]on MATERIAL EXPEDITER, MATERIAL EXPEDITER-C Franci Referring Provider [phone] GIOVANNI Hendrix Attending Provider [phone] Dr. Eliana Camacho Attending Provider [place]orson MATERIAL EXPEDITER, MATERIAL EXPEDITER-C Franci Primary Care Provider [place]on MATERIAL EXPEDITER, MATERIAL EXPEDITER-C Franci Referring Provider [phone] Lorson MATERIAL EXPEDITER, MATERIAL EXPEDITER-C Franci Primary Care Provider [phone] Lorson MATERIAL EXPEDITER, MATERIAL EXPEDITER-C Franci Referring Provider [phone] Lorson MATERIAL EXPEDITER, MATERIAL EXPEDITER-C Franci Primary Care Provider Lorson MATERIAL EXPEDITER, MATERIAL EXPEDITER-C Franci Referring Provider [phone] Dr. Eliana Camacho Attending Provider Lorson MATERIAL EXPEDITER, MATERIAL EXPEDITER-C Franci Primary Care Provider GIOVANNI Hednrix Attending Provider Yesyson MATERIAL EXPEDITER, MATERIAL EXPEDITER-C Franci Primary Care Provider Becky MATERIAL EXPEDITER, MATERIAL EXPEDITER-C Franci Referring Provider Corinne DAVILA, GIOVANNI Lira Attending Provider Dr. Eliana Camacho Attending Provider [phone] LORSON PROCESS ARCHITECT-ACCOUNTS EXECUTIVE, ELKHORN Primary Care Physician LORSON PROCESS ARCHITECT-ACCOUNTS EXECUTIVE, FRANCI Attending Unavail able LORSON PROCESS ARCHITECT-ACCOUNTS EXECUTIVE, FRANCI Primary Care Unavail able LORSON PROCESS ARCHITECT-ACCOUNTS EXECUTIVE, FRANCI Attending Unavail able LORSON PROCESS ARCHITECT-ACCOUNTS EXECUTIVE, ELKHORN Primary Care Unavail able ROCK PROCESS ARCHITECT-ACCOUNTS EXECUTIVE, [place] Attending Unavailabl e LORSON PROCESS ARCHITECT-ACCOUNTS EXECUTIVE, ELKHORN Primary Care Unavail able LORSON PROCESS ARCHITECT-ACCOUNTS EXECUTIVE, ELKHORN Primary Care Unavail able YU SANTIAGO, NEYDA Attending Unavailable [place] MATERIAL EXPEDITER, [place] Primary Care Unavailable Assessment, Health Risk Attending Unavaila ble Assessment, Health Risk Referring Unavaila ble Becky MATERIAL EXPEDITER, Franci Primary Care Unavailable Yu, Neyda Attending Unavailable Yu, Neyda Referring Unavailable Lorson MATERIAL EXPEDITER, Franci Referring Unavailable L[place]on MATERIAL EXPEDITER, [place] Primary Care Unavailable Lorson MATERIAL EXPEDITER, Franci Attending Unavailable [place]on MATERIAL EXPEDITER, Franci Referring Unavailable Lorson MATERIAL EXPEDITER, [place] Primary Care Unavailable Yu, Neyda Consulting Unavailable Yesyson MATERIAL EXPEDITER, Franci Attending Unavailable [place]on MATERIAL EXPEDITER, Franci Attending Unavailable Lorson MATERIAL EXPEDITER, Franci Referring Unavailable Lorson MATERIAL EXPEDITER, [place] Primary Care Unavailable Allergies Allergy Classification Reported Allergen(s) Allergy Type Date of Onset Reaction(s) Facility (16 sources) nickel; Translations: [NICKEL] Drug Allergy 9 AOF, Hives, Unknown [facility] Repository (5 sources) Shellfish; Translations: [SHELLFISH] Propensity to adverse reactions to food (disorder) 9 AOF [facility] Repository (11 sources) Shellfish; Translations: [shellfish derived] Allergy to substance 2 Anaphylaxis [facility] Medications Current Medications Medication Drug Class(es) Dates [...] 0 Refill(s), 05/18/23 1:31:00 PM EDT, Pharmacy: [facility]/pharmacy #[id number], UTI (urinary tract infection), 156.5, cm, 05/11/23 [...] qDay, # 180 tab(s), 3 Refill(s), Pharmacy: [facility], 118, cm, 11/09/22 15:01:00 EDT, Height, kg, 11/09/22 15:01:00 EDT, Dosing Weight Start Date: 11/09/22 Stop Date: 11/04/23 Status: Ordered Start: 10-02-2021 take 1 tablet by consuelo twice daily Metformin Active 1 TABLET PO TWICE A DAY October 02, 2021 12:00am Multivitamin preparation (1 source) Start: 01-01-2025 take 1 tablet by mouth once daily Multivitamin Dose = 1 tab(s), Oral, Daily, 0 Refill(s) Start Date: 01/01/25 Status: Ordered Medication Dispense Status: Completed Total Allowed Fills: 1 Fills Dispensed: 0 PARoxetine hydrochloride 20 mg oral tablet (14 sources) Serotonin Reuptake Inhibitor Start: 11-25-2024 End: 11-20-2025 PARoxetine 20 mg oral tablet Dose : 20 mg = 1 tab(s), Oral, qDay, # 90 tab(s), 3 Refill(s), Pharmacy: [facility], 156.8, cm, 11/25/24 8:36:00 EDT, Height, kg, 11/25/24 8:36:00 EDT, Dosing Weight Start Date: 11/25/24 Stop Date: 11/20/25 Status: Ordered Medication Dispense Status: Completed Quantity: 90.0 Unit: tab(s) Total Allowed Fills: 4 Fills Dispensed: 0 Start: 05-10-2023 End: 05-04-2024 PARoxetine 20 mg oral tablet Dose : 20 mg = 1 tab(s), Oral, qDay, # 90 tab(s), 3 Refill(s), Pharmacy: [facility], 156.5, cm, 05/10/23 15:36:00 EST, Height, kg, 05/10/23 15:36:00 EST, Dosing Weight Start Date: 05/10/23 Stop Date: 05/04/24 Status: Ordered Start: 09-17-2020 Paroxetine Hcl Active TAB PO September 17, 2020 12:00am phentermine hydrochloride 37.5 mg oral capsule (1 source) Sympathomimetic Amine Anorectic Start: 12-02-2024 End: 03-02-2025 phentermine 37.5 mg oral capsule Dose : 37.5 mg = 1 cap(s), Oral, Daily, X 30 day(s), # 30 cap(s), 2 Refill(s), 03/02/25 2:34:00 PM EST, Pharmacy: [facility], BMI 33.0-33.9,adult, 156.8, cm, 11/25/24 8:36:00 EDT, Height, 83.1, kg, 11/25/24 8:36:00 EDT, Dosing Weight Start Date: 12/02/24 Stop Date: 03/02/25 Status: Ordered Medication Dispense Status: Completed Quantity: 30.0 Unit: cap(s) Total Allowed Fills: 3 Fills Dispensed: 0 Indications: Body mass index [BMI] 33.0-33.9, adult; Multivitamins (1 source) Start: 05-10-2023 Multivitamins Oral, [...] Status: Ordered spironolactone 100 mg oral tablet (14 sources) Aldosterone Antagonist Start: 01-01-2025 spironolactone 100 mg oral tablet Dose : 100 mg = 1 tab(s), Oral, qDay, # 30 tab(s), 0 Refill(s) Start Date: 01/01/25 Status: Ordered Medication Dispense Status: Completed Quantity: 30.0 Unit: tab(s) Total Allowed Fills: 1 Fills Dispensed: 0 Start: 10-02-2021 take 1 tablet by consuelo th twice daily Spironolactone Active 1 TABLET PO TWICE A DAY October 02, 2021 12:00am Start: 01-11-2021 spironolactone 100 mg oral tablet Dose : 200 mg = 2 tab(s), Oral, qDay, 0 Refill(s) Start Date: 01/11/21 Status: Ordered topiramate 25 mg oral tablet (9 sources) Start: 11-25-2024 topiramate 25 mg oral tablet Dose : 25 mg = 1 tab(s), Oral, qDay, # 90 tab(s), 3 Refill(s), Pharmacy: [facility], 156.8, cm, 11/25/24 8:36:00 EDT, Height, kg, 11/25/24 8:36:00 EDT, Dosing Weight Start Date: 11/25/24 Status: Ordered Medication Dispense Status: Completed Quantity: 90.0 Unit: tab(s) Total Allowed Fills: 4 Fills Dispensed: 0 Start: 09-28-2022 topiramate 25 mg oral capsule, [...] Start: 10-02-2021 take 1 tablet by consuelo th once daily Norethindrone-E.Estradiol-Iron ( Fe ()) 1.5 mg-30 mcg (21)/75 mg (7) tablet Active 1 TABLET PO DAILY October 02, 2021 12:00am fluconazole 150 mg oral tablet (2 sources) Azole Antifungal Start: 05-18-2023 End: 05-21-2023 Diflucan 150 mg oral tablet Dose : 150 mg = 1 tab(s), Oral, Daily, # 3 tab(s), 0 Refill(s), Pharmacy: [facility]/pharmacy #[id number], 156.5, cm, 05/17/23 14:46:00 EDT, Height, 81.9, kg, 05/17/23 14:46:00 EDT, Dosing Weight Start Date: 05/18/23 Stop Date: 05/21/23 Status: Ordered miSOPROStol 0.2 mg oral tablet (7 sources) Prostaglandin E1 Analog Start: 12-17-2021 End: 01-07-2022 Misoprostol (Cytotec) 200 mcg tablet Discontinued 400 MCG VAGINAL ONCE 2 December 17, 2021 12:00am January 07, 2022 10:59am Use vaginally the night before procedure. polymyxin b 50163 unt/ml / trimethoprim 1 mg/ml ophthalmic solution [...] and Serotonin-1d Receptor Agonist Start: 08-19-2021 End: 10-24-2022 take 25 mg by mouth once Sumatriptan Succinate Discontinued 25 MG PO ONCE August 19, 2021 12:00am October 24, 2022 10:59am Start: 09-17-2020 End: 08-19-2021 Sumatriptan Succinate Discon tinued TAB PO September 17, 2020 12:00am August 19, 2021 9:12am valACYclovir 1000 mg oral tablet (1 source) Herpesvirus Nucleoside Analog DNA Polymerase Inhibitor, Herpes Simplex Virus Nucleoside Analog DNA Polymerase Inhibitor, Herpes Zoster Virus Nucleoside Analog DNA Polymerase Inhibitor Start: 11-25-2024 End: 12-25-2024 Valtrex 1 g oral tablet Dose : 1 gram(s) = 1 tab(s), Oral, BID, take a five day course for symptoms., # 10 tab(s), 5 Refill(s), Pharmacy: [facility]/pharmacy #[id number], Vulvitis HSV-2 seropositive, 156.8, cm, 11/25/24 8:36:00 EDT, Height, 83.1, kg, 11/25/24 8:36:00 EDT, Dosing Weight Start Date: 11/25/24 Stop Date: 12/25/24 Status: Ordered Medication Dispense Status: Completed Quantity: 10.0 Unit: tab(s) Total Allowed Fills: 6 Fills Dispensed: 0 Indications: Acute vulvitis; Other specified abnormal immunological findings in serum; Problems Problem Classification Problem Date Documented Da te Episodic/Chronic Abdominal pain (20 sources) Pain in pelvis; Translations: [Pelvic and perineal pain] 10-10-2021 Episodic Acute bronchitis (11 sources) Acute bronchitis; Translations: [Acute bronchitis, unspecified] Episodic Anxiety disorders (14 sources) Anxiety; Translations: [Anxiety disorder, unspecified] 08-30-2021 Chronic Contraceptive and procreative management (20 sources) Patient encounter status; Translations: [Encounter for insertion of intrauterine contraceptive device] Episodic Diabetes mellitus without complication (8 sources) Hyperglycemia; Translations: [Prediabetes] 11-09-2022 Episodic Genitourinary symptoms and ill-defined conditions (20 sources) Blood in urine; Translations: [Hematuria, unspecified] Onset: 05-11-2023 Episodic Headache; including migraine (15 sources) Migraine with aura; Translations: [Migraine with aura, not intractable, without status migrainosus] 08-30-2021 Chronic Headache; including migraine (10 sources) Headache; Translations: [Headache] 02-06-2013 Episodic Hemorrhoids (1 source) Hemorrhoids 12-16-2024 Episodic Immunizations and screening for infectious disease (20 sources) Contact with or exposure to other viral diseases; Translations: [Exposure to COVID-19 virus] Episodic Inflammation; infection of eye (except that caused by tuberculosis or sexually transmitteddisease) (3 sources) Acute conjunctivitis; Translations: [Unspecified acute conjunctivitis, left eye] 06-17-2022 Episodic Menstrual disorders (15 sources) Irregular periods; Translations: [Irregular menstruation, unspecified] Onset: 01-08-2025 08-30-2021 Chronic Mood disorders (4 sources) Major depressive disorder 09-28-2022 Chronic Other [...] shoulder region] 10-24-2022 Episodic Other endocrine disorders (14 sources) Polycystic ovary syndrome; Translations: [Polycystic ovarian syndrome] 08-30-2021 Chronic Other female genital disorders (2 sources) Abnormal uterine and vaginal bleeding, unspecified; Translations: [Abnormal uterine and vaginal bleeding, unspecified] Onset: 01-01-2025 Chronic Other female genital disorders (3 sources) Vaginal discharge 05-17-2023 Episodic Other female genital disorders (1 source) Noninflammatory disorder of the vagina; Translations: [Other specified noninflammatory disorders of vagina] Episodic Other female genital disorders (2 sources) Other specified noninflammatory disorders of vagina; Translations: [Other specified noninflammatory disorders of vagina] Onset: 05-17-2023 Episodic Other gastrointestinal disorders (4 sources) Constipation 02-21-2020 Episodic Other gastrointestinal disorders (4 sources) Heartburn 11-12-2020 Episodic Other gastrointestinal disorders (1 source) Diarrhea 11-25-2024 Episodic Other inflammatory condition of skin (4 sources) Itching of skin 11-09-2022 Episodic Other inflammatory condition of skin (1 source) Intertrigo 11-28-2023 Episodic Other non-traumatic joint disorders (4 sources) Joint pain 09-28-2022 Episodic Other nutritional; endocrine; and metabolic disorders (4 sources) Obesity 04-10-2019 Chronic Other nutritional; endocrine; and metabolic disorders (1 source) Body mass index 30+ - obesity 11-25-2024 Chronic Other nutritional; endocrine; and metabolic disorders (4 sources) Weight gain 09-28-2022 Episodic Other nutritional; endocrine; and metabolic disorders (2 sources) Abnormal weight gain; Translations: [Abnormal weight gain] Onset: 12-27-2024 Episodic Other screening for suspected conditions (not mental disorders or infectious disease) (3 sources) Encounter for screening for malignant neoplasm of cervix; Translations: [Encounter for screening mammogram for malignant neoplasm of breast] Onset: 01-01-2025 Episodic Other skin disorders (14 sources) Acne; Translations: [Acne, unspecified] 08-30-2021 Episodic Residual codes; unclassified (14 sources) Insomnia; Translations: [Insomnia, unspecified] 08-30-2021 Episodic Residual codes; unclassified (1 source) Family history of breast cancer 11-28-2023 Episodic Spondylosis; intervertebral disc disorders; other back problems (20 sources) Backache; Translations: [Dorsalgia, unspecified] Episodic Unclassified (13 sources) Patient encounter status 09-28-2022 Unclassified (4 sources) Skin finding 2020 Urinary tract infections (9 sources) Urinary tract infectious disease; Translations: [Urinary tract infection, site not specified] 09-30-2021 Episodic Results Test Name Value Interpretation Reference Range Facility CBC-Complete Blood Cnt No Di ffon 01-08-2025 Erythrocyte distribution width (RBC) [Ratio] 12.7 % Normal 11.6-14.6 [facility] Comment on above: Performed By: #### L 503.6030, L506.0400, L100.0500, L501.9520, L503.6550 #### [facility] [address] [place], [address] Hematocrit (Bld) [Volume fraction] 38.3 % Normal 37-47 [facility] Comment on above: Performed By: #### L 503.6030, L506.0400, L100.0500, L501.9520, L503.6550 #### [facility] [address] [place], [address] Hemoglobin (Bld) [Mass/Vol] 13.1 g/dL Normal 12.0-15.0 [facility] Comment on above: Performed By: #### L 503.6030, L506.0400, L100.0500, L501.9520, L503.6550 #### [facility] [address] [place], [address] MCH (RBC) [Entitic mass] 33.0 pg High 27.0-32.0 [facility] Comment on above: Performed By: #### L 503.6030, L506.0400, L100.0500, L501.9520, L503.6550 #### [facility] [address] [place], [address] MCHC (RBC) [Mass/Vol] 34.2 g/dL Normal 32-36 [facility] Comment on above: Performed By: #### L 503.6030, L506.0400, L100.0500, L501.9520, L503.6550 #### [facility] [address] [place], [address] MCV (RBC) [Entitic vol] 96.5 fL Normal 81-99 [facility] Comment on above: Performed By: #### L 503.6030, L506.0400, L100.0500, L501.9520, L503.6550 #### [facility] [address] [place], [address] Platelet mean volume (Bld) [Entitic vol] 9.9 fL Normal 6.2-12.0 [facility] Comment on above: Performed By: #### L 503.6030, L506.0400, L100.0500, L501.9520, L503.6550 #### [facility] [address] [place], [address] Platelets (Bld) [#/Vol] 315 10*3/uL Normal 150-450 [facility] Comment on above: Performed By: #### L 503.6030, L506.0400, L100.0500, L501.9520, L503.6550 #### [facility] [address] [place], [address] RBC (Bld) [#/Vol] 3.97 10*6/uL Low 4.2-5.4 [facility] Comment on above: Performed By: #### L 503.6030, L506.0400, L100.0500, L501.9520, L503.6550 #### [facility] [address] [place], [address] RDW SD 45.1 fl High 35.1-43.9 [facility] Comment on above: Performed By: #### L 503.6030, L506.0400, L100.0500, L501.9520, L503.6550 #### [facility] [address] [place], [address] WBC (Bld) [#/Vol] 7.0 10*3/uL Normal 4.4-11.0 [facility] Comment on above: Performed By: #### L 503.6030, L506.0400, L100.0500, L501.9520, L503.6550 #### [facility] [address] [place], [address] Ferritinon 01-08-2025 Ferritin [Mass/Vol] 64 ng/mL Normal 22-378 [facility] Comment on above: Performed By: #### L 503.6030, L506.0400, L100.0500, L501.9520, L503.6550 #### [facility] [address] [place], [address] Iron+Iron Binding Capacityon 01-08-2025 Iron [Mass/Vol] 109 ug/dL Normal 50-170 [facility] Comment on above: Performed By: #### L 503.6030, L506.0400, L100.0500, L501.9520, L503.6550 #### [facility] [address] [place], [address] IRON SATURATION 28.6 Normal 13-59 [facility] Comment on above: Performed By: #### L 503.6030, L506.0400, L100.0500, L501.9520, L503.6550 #### [facility] [address] [place], [address] TIBC 381 ug/dL Normal 250-450 [facility] Comment on above: Performed By: #### L 503.6030, L506.0400, L100.0500, L501.9520, L503.6550 #### [facility] [address] [place], [address] UIBC 272 ug/dL Normal 228-428 [facility] Comment on above: Performed By: #### L 503.6030, L506.0400, L100.0500, L501.9520, L503.6550 #### [facility] [address] [place], [address] T4 Free Directon 01-08-2025 T4 FREE DIRECT 1.00 ng/dL Normal 0.76-1.46 [facility] Comment on above: Performed By: #### L 503.6030, L506.0400, L100.0500, L501.9520, L503.6550 #### [facility] [address] [place], [address] Thyroid Stim Hormone (TSH)on 01-08-2025 TSH 1.850 uIU/mL Normal 0.300-4.200 [facility] Comment on above: Performed By: #### L 503.6030, L506.0400, L100.0500, L501.9520, L503.6550 #### [facility] [address] [place], [address] Certified Orthotist Practice Manager Cytology Reporton 2024 Certified Orthotist Practice Manager Cytology Report . Pathology Reports Accession: Collected Date/Time: Received Date/Time: Pathologist: [id number] 01/01/2025 09:19 EDT 01/01/2025 18:00 EDT Certified Orthotist Practice Manager Cytology Report SPECIMEN: Specimen Description: Liquid Prep w/ HPV Specimen: Cervical/Endocervical Screening or Diagnostic: Screening RELEVANT HISTORY: LMP: 12/04/24 SPECIMEN ADEQUACY: SATISFACTORY FOR EVALUATION, BUT BORDERLINE SQUAMOUS CELLULARITY Endocervical/Transformati onal zone component present INTERPRETATION/RESULTS: NEGATIVE FOR INTRAEPITHELIAL LESION OR MALIGNANCY HIGH RISK HPV TESTING: HPV Screen Only, APRIL Probe Negative HPV Screen Only, APRIL Probe Interp Data: Molecular methodology performed on the [employer] System. The APTIMA HPV Screening Assay is a nucleic acid amplification test which detects fourteen high-risk HPV types (16,18,31,33,35,39,45,51, 52,56,58,59,66 and 68). Detection of high-risk HPV (types 16,18 and 45) mRNA is dependent on the number of copies present in the specimen which may be affected by collection methods, patient factors, stage of infection and the presence of interfering substances. This assay is designed to enhance existing methods for the detection of cervical disease and should be used in conjunction with clinical information from other diagnostic and screening tests. This assay is not intended for use as a screening device for women under age 30 with normal cervical history or as a substitute for regular cervical cytology screening. If the APTIMA screening assay is positive, the HPV 16 18/45 genotype assay is performed as a follow-up test and should be interpreted in conjunction with cervical cytology test results, according to current practice guidelines. As of: 01/06/25 12:49 EST COMMENT: This Pap Test was successfully processed and evaluated with the assistance of the [employer] Test Imaging System. Verified by Pathology report verified by [facility] Screened by: ULYSSES Electronically signed by Kerrie FRANCIS (ASCP) Sign-Out Date: 01/06/2025 12:49 Performing Lab: [address] Pathology Dept Pathology Reports Accession: Collected Date/Time: Received Date/Time: Pathologist: [id number] 01/01/2025 09:19 EDT 01/01/2025 18:00 EDT Disclaimer The Pap test is a screening test for cervical cancer. As evidenced by published data, it is subject to both inherent false negative and false positive results. Your patient's results should be interpreted in context with pertinent clinical history including gynecological examination. Normal [facility] HPVSCon 10-30-2025 HPV Screen Only, APRIL Probe Negative Normal Negative [facility] Comment on above: Order Comment: Order placed by AP_HPV_ORDER rule from [id number] Result Comment: Opal shah methodology performed on the [employer] System. The APTIMA HPV Screening Assay is a nucleic acid amplification test which detects fourteen high-risk HPV types (16,18,31,33,35,39,45,51,52,56,58,59,66 and 68). Detection of high-risk HPV (types 16,18 and 45) mRNA is dependent on the number of copies present in the specimen which may be affected by collection methods, patient factors, stage of infection and the presence of interfering substances. This assay is designed to enhance existing methods for the detection of cervical disease and should be used in conjunction with clinical information from other diagnostic and screening tests. This assay is not intended for use as a screening device for women under age 30 with normal cervical history or as a substitute for regular cervical cytology screening. If the APTIMA screening assay is positive, the HPV 16 18/45 genotype assay is performed as a follow-up test and should be interpreted in conjunction with cervical cytology test results, according to current practice guidelines. Performed By: #### H PVSC #### [place] [address] HPV Source Cervix Normal [facility] Comment on above: Order Comment: Order placed by AP_HPV_ORDER rule from [id number] Performed By: #### H PVSC #### [place] [address] LABORATORYOrdered By: SYSTEM SYSTEM on 01-01-2025 HPV E6+E7 mRNA APRIL+probe Ql (Cvx) Negative 1 (01/01/25 9:19 AM) Normal Negative [facility] Comment on above: Interpretive Data: Nohemy bui methodology performed on the [employer] System. The APTIMA HPV Screening Assay is a nucleic acid amplification test which detects fourteen high-risk HPV types (16,18,31,33,35,39,45,51,52,56,58,59,66 and 68). Detection of high-risk HPV (types 16,18 and 45) mRNA is dependent on the number of copies present in the specimen which may be affected by collection methods, patient factors, stage of infection and the presence of interfering substances. This assay is designed to enhance existing methods for the detection of cervical disease and should be used in conjunction with clinical information from other diagnostic and screening tests. This assay is not intended for use as a screening device for women under age 30 with normal cervical history or as a substitute for regular cervical cytology screening. If the APTIMA screening assay is positive, the HPV 16 18/45 genotype assay is performed as a follow-up test and should be interpreted in conjunction with cervical cytology test results, according to current practice guidelines. HPV Source Cervix *NA* (01/01/25 9:19 AM) Invalid Interpretation Code AH Auto Viro/Sero SS SCRN MAMM (CAD)W/THOMAS BILATo n 12-23-2024 SCRN MAMM (CAD)W/THOMAS BILAT [facility] Imaging Services [address] [place] [id number] SCRN MAMM (CAD)W/THOMAS BILAT MR#: [id number] Acct: [id number] Name: YARI HERNANDEZ Rep #: [id number] : 1985 F 39 From: Ariane Troy i, MD PCP: AMAURY David Status: [facility] Study: SCRN MAMM (CAD)W/THOMAS BILAT Date of Exam: 12/05 Exam# [id number] Ordering Dr: Franci Pena MATERIAL EXPEDITER MATERIAL EXPEDITER -C EXAM: SCRN MAMM (CAD)W/THOMAS BILAT DATE: 12/23/2024 CLINICAL HISTORY: F, Age 39 y/o , SCREENING TECHNIQUE: Procedure Code: [id number] Modality: MG Procedure: SCRN MAMM (CAD)W/THOMAS BILAT COMPARISON: Prior exam(s) were compared FINDINGS: TISSUE DENSITY: The breasts are heterogeneously dense, which may obscure small masses. Bilateral Breast Mammographic Findings: No suspicious masses, calcifications or other abnormalities are identified. BI/SCRN MAMM (CAD)W/THOMAS BILAT IMPRESSION: No mammographic evidence of malignancy in either breast. OVERALL FINAL ASSESSMENT BI-RADS 1: NEGATIVE. RECOMMENDATION: Routine annual follow-up in 1 Year Additional Recommendation none A letter with findings and recommendations will be mailed to the patient. Reading Location: [id number] CC: AMAURY Pena Enrollment Counselor: Signed Normal [facility] CBC, Employeeon 11-26-2024 Absolute Lymph 2.46 X10 3/uL Normal 0.83-4.51 [facility] Comment on above: Performed By: #### L 100.0200, L400.0100, L500.2900 #### [facility] Laboratory [address] [place], [address] Absolute Neut 5.0 X10 3/uL Normal 2.0-7.7 [facility] Comment on above: Performed By: #### L 100.0200, L400.0100, L500.2900 #### [facility] [address] [place], [address] Basophils/100 WBC (Bld) 0.6 % Normal 0-1 [facility] Comment on above: Performed By: #### L 100.0200, L400.0100, L500.2900 #### [facility] [address] [place], [address] Eosinophils/100 WBC (Bld) 5.3 % High 0-5 [facility] Comment on above: Performed By: #### L 100.0200, L400.0100, L500.2900 #### [facility] [address] [place], [address] Erythrocyte distribution width (RBC) [Ratio] 12.3 % Normal 11.6-14.6 [facility] Comment on above: Performed By: #### L 100.0200, L400.0100, L500.2900 #### [facility] [address] [place], [address] Hematocrit (Bld) [Volume fraction] 36.6 % Low 37-47 [facility] Comment on above: Performed By: #### L 100.0200, L400.0100, L500.2900 #### [facility] [address] [place], [address] Hemoglobin (Bld) [Mass/Vol] 13.1 g/dL Normal 12.0-15.0 [facility] Comment on above: Performed By: #### L 100.0200, L400.0100, L500.2900 #### [facility] [address] [place], [address] Lymphocytes/100 WBC (Bld) 29.2 % Normal 19-41 [facility] Comment on above: Performed By: #### L 100.0200, L400.0100, L500.2900 #### [facility] [address] [place], [address] MCH (RBC) [Entitic mass] 33.6 pg High 27.0-32.0 [facility] Comment on above: Performed By: #### L 100.0200, L400.0100, L500.2900 #### [facility] [address] [place], [address] MCHC (RBC) [Mass/Vol] 35.8 g/dL Normal 32-36 [facility] Comment on above: Performed By: #### L 100.0200, L400.0100, L500.2900 #### [facility] [address] [place], [address] MCV (RBC) [Entitic vol] 93.8 fL Normal 81-99 [facility] Comment on above: Performed By: #### L 100.0200, L400.0100, L500.2900 #### [facility] [address] [place], [address] Monocytes/100 WBC (Bld) 5.5 % Normal 0-10 [facility] Comment on above: Performed By: #### L 100.0200, L400.0100, L500.2900 #### [facility] [address] [place], [address] Neutrophils/100 WBC (Bld) 59.0 % Normal 47-70 [facility] Comment on above: Performed By: #### L 100.0200, L400.0100, L500.2900 #### [facility] [address] [place], [address] NRBC # 0.00 10 3/uL Normal 0-5 [facility] Comment on above: Performed By: #### L 100.0200, L400.0100, L500.2900 #### [facility] [address] [place], [address] Nucleated RBC (Bld) [#/Vol] 0 10*3/uL Normal 0-5 [facility] Comment on above: Performed By: #### L 100.0200, L400.0100, L500.2900 #### [facility] [address] [place], [address] Platelet mean volume (Bld) [Entitic vol] 9.6 fL Normal 6.2-12.0 [facility] Comment on above: Performed By: #### L 100.0200, L400.0100, L500.2900 #### [facility] [address] [place], [address] Platelets (Bld) [#/Vol] 263 10*3/uL Normal 150-450 [facility] Comment on above: Performed By: #### L 100.0200, L400.0100, L500.2900 #### [facility] [address] [place], [address] RBC (Bld) [#/Vol] 3.90 10*6/uL Low 4.2-5.4 [facility] Comment on above: Performed By: #### L 100.0200, L400.0100, L500.2900 #### [facility] [address] [place], [address] RDW SD 42.3 fl Normal 35.1-43.9 [facility] Comment on above: Performed By: #### L 100.0200, L400.0100, L500.2900 #### [facility] [address] [place], [address] WBC (Bld) [#/Vol] 8.4 10*3/uL Normal 4.4-11.0 [facility] Comment on above: Performed By: #### L 100.0200, L400.0100, L500.2900 #### [facility] [address] [place], [address] Employee Profileon 5 CHOL:HDL 3.77 Normal [facility] Comment on above: Performed By: #### L 100.0200, L400.0100, L500.2900 #### [facility] [address] [place], [address] Cholesterol [Mass/Vol] 157 mg/dL Normal <=200 [facility] Comment on above: Result Comment: Chol esterol level, Desirable <200 mg/dL Borderline high cholesterol 200-239 mg/dL High cholesterol >=240 mg/dL Recommendations of the NCEP Adult Treatment Panel for the following risk-cutoff thresholds for the [place] population. Performed By: #### L 100.0200, L400.0100, L500.2900 #### [facility] [address] [place], [address] Cholesterol in HDL [Mass/Vol] 42 mg/dL Normal [facility] Comment on above: Result Comment: Tawana onal Cholesterol Education Program (NCEP) guidelines: <40 mg/dL: Low HDL-cholesterol (major risk factor for CHD) >= 60 mg/dL: High HDL-cholesterol (negative risk factor for CHD) HDL-cholesterol is affected by a number of factors, e.g. smoking, exercise, hormones, sex and age. Performed By: #### L 100.0200, L400.0100, L500.2900 #### [facility] [address] [place], [address] Cholesterol in LDL [Mass/Vol] 94 mg/dL Normal [facility] Comment on above: Result Comment: Bord cuucsc=245-864 mg/dL Higher Fikk=102 mg/dL or greater Friedwald Equation for LDL-C Performed By: #### L 100.0200, L400.0100, L500.2900 #### [facility] [address] [place], [address] Cholesterol in VLDL [Mass/Vol] 21 mg/dL Normal 5-40 [facility] Comment on above: Performed By: #### L 100.0200, L400.0100, L500.2900 #### [facility] [address] [place], [address] Triglyceride [Mass/Vol] 105 mg/dL Normal [facility] Comment on above: Result Comment: The drugs N-Acetylcysteine and Metamizole may falsely depress this assay. Normal range: <150 mg/dL Borderline High: 150-199 mg/dL High: 200-499 mg/dL Very High: >500 mg/dL Performed By: #### L 100.0200, L400.0100, L500.2900 #### [facility] [address] [place], [address] URIC 5.3 mg/dL Normal 2.6-6.0 [facility] Comment on above: Result Comment: The drugs N-Acetylcysteine and Metamizole may falsely depress this assay. Performed By: #### L 100.0200, L400.0100, L500.2900 #### [facility] [address] [place], [address] T4 Free Directon 11-26-2024 T4 FREE DIRECT 0.90 ng/dL Normal 0.76-1.46 [facility] Comment on above: Performed By: #### L 501.9520, L506.0400 #### [facility] [address] [place], [address] Thyroid Stim Hormone (TSH)on 11-26-2024 TSH 1.770 uIU/mL Normal 0.300-4.200 [facility] Comment on above: Performed By: #### L 501.9520, L506.0400 #### [facility] [address] [place], [address] Urinalysis, Employeeon 11-26 BILIRUBIN URINE Negative Normal Negative [facility] Comment on above: Order Comment: CLEAN CATCH Performed By: #### L 100.0200, L400.0100, L500.2900 #### [facility] [address] [place], [address] Clarity (U) Clear Normal Clear [facility] Comment on above: Order Comment: CLEAN CATCH Performed By: #### L 100.0200, L400.0100, L500.2900 #### [facility] [address] [place] [place], [address] Color (U) Yellow Normal Yellow [facility] Comment on above: Order Comment: CLEAN CATCH Performed By: #### L 100.0200, L400.0100, L500.2900 #### [facility] [address] [place], [address] GLUCOSE, UR Normal Normal Normal [facility] Comment on above: Order Comment: CLEAN CATCH Performed By: #### L 100.0200, L400.0100, L500.2900 #### [facility] [address] [place], [address] KETONE UR Negative Normal Negative [facility] Comment on above: Order Comment: CLEAN CATCH Performed By: #### L 100.0200, L400.0100, L500.2900 #### [facility] [address] [place], [address] LEUK ESTERASE Negative Normal Negative [facility] Comment on above: Order Comment: CLEAN CATCH Performed By: #### L 100.0200, L400.0100, L500.2900 #### [facility] [address] [place], [address] Nitrite Ql (U) Negative Normal Negative [facility] Comment on above: Order Comment: CLEAN CATCH Performed By: #### L 100.0200, L400.0100, L500.2900 #### [facility] [address] [place], [address] OCCULT BLOOD-UR Negative Normal Negative [facility] Comment on above: Order Comment: CLEAN CATCH Performed By: #### L 100.0200, L400.0100, L500.2900 #### [facility] [address] [place], [address] pH UR 7.0 Normal 5.0 - 8.0 [facility] Comment on above: Order Comment: CLEAN CATCH Performed By: #### L 100.0200, L400.0100, L500.2900 #### [facility] [address] [place], [address] PROT DIPSTX 15 mg/dl Abnormal Negative [facility] Comment on above: Order Comment: CLEAN CATCH Performed By: #### L 100.0200, L400.0100, L500.2900 #### [facility] [address] [place], [address] SP.GR. DIPSTX 1.010 Normal 1.002-1.030 [facility] Comment on above: Order Comment: CLEAN CATCH Performed By: #### L 100.0200, L400.0100, L500.2900 #### [facility] [address] [place], [address] UROBILI Normal Normal Normal [facility] Comment on above: Order Comment: CLEAN CATCH Performed By: #### L 100.0200, L400.0100, L500.2900 #### [facility] [address] [place], [address] [id number] 06-01-2023 HSV 1 IgG Type Spec <0.91 Normal 0.00-0.90 [facility] ([place]) Comment on above: Result Comment: Nega tive <0.91 Equivocal 0.91 - 1.09 Positive >1.09 Note: Negative indicates no antibodies detected to HSV-1. Equivocal may suggest early infection. If clinically appropriate, retest at later date. Positive indicates antibodies detected to HSV-1. Performed By: #### 1 [address] #### [address] [address] HSV 2 IgG Type Spec 16.70 Index High 0.00-0.90 [facility] ([place]) Comment on above: Result Comment: Nega tive [...] results should be clinically correlated. Performed At: [facility] [id number] [place], [place] [id number] Breanne Cannon PhD Ph:[phone] Performed By: #### 1 [address] #### [address] [address] CTPCRon 05-18-2023 C. trachomatis Interp Normal See CT Interp N [facility] ([place]) Comment on above: Result Comment: C. t rachomatis DNA not detected. Specimen is presumptive negative for C. trachomatis. A negative result does not preclude C. trachomatis infection because results depend on adequate specimen collection, absence of inhibitors, and sufficient DNA to be detected. See CT Interp N Performed By: #### N GPCR1, CTPCR #### [place] [address] C.trachomatis PCR Negative Normal Negative [facility] ([place]) Comment on above: Result Comment: Mole cular (PCR) assay performed on the Heidi Justino 4800 system. Performed By: #### N GPCR1, CTPCR #### [place] [id number] Chlam Source Cervix Normal [facility] ([place]) Comment on above: Performed By: #### N GPCR1, CTPCR #### [place] [address] [id number] 05-18-2023 GC PCR Source Cervix Normal [facility] ([place]) Comment on above: Performed By: #### N GPCR1, CTPCR #### [place] [address] N. gonorrhoeae (PCR) Negative Normal Negative [facility] ([place]) Comment on above: Result Comment: Mole cular (PCR) assay performed on the Heidi Justino 4800 System. Performed By: #### N GPCR1, CTPCR #### [place] [address] N. gonorrhoeae Interp Normal See NG Interp N [facility] ([place]) Comment on above: Result Comment: N. g onorrhoeae DNA not detected. Specimen is presumptive negative for N. gonorrhoeae. A negative result does not preclude Neisseria gonorrhoeae infection because results depend on adequate specimen collection, absence of inhibitors, and sufficient DNA to be detected. See NG Interp N Performed By: #### N GPCR1, CTPCR #### [place] [address] LABORATORYOrdered By: Santos Murdock on 05-17-2023 C. [...] Negative 1 (05/17/23 4:57 PM) Normal Negative Auto Viro/Sero [...] be detected. Normal See NG Interp N Auto Viro/Sero SS Laboratory - Specimen inform ationOrdered By: Sangita Murdock on 05-17-2023 Specimen source Nom (Unsp spec) Cervix (05/17/23 4:57 PM) Normal Auto Viro/Sero SS No Panel InformationOrdered By: Alicia Villalpando on 05-17-2023 Affirm Pathogens DNA Direct Probe Niurka species DNA Probe Positive Gardnerella vaginalis DNA Probe Negative Trichomonas vaginalis DNA Probe Negative [facility] No Panel Informationon 05-16 Culture Urine 10,000 - 50,000 cfu/ ml Multiple bacterial morphotypes present. Probable Contamination. Suggest recollection if clinically indicated. [facility] Work Phone: No Panel Informationon 05-10 Culture Urine <10,000 cfu/ml. No Significant growth. Sensitivity not indicated. [facility] Work Phone: Chlamydia trachomatis rRNA d etection by probe and target amplification methodOrdered By: Eliana Aleman on 11-24-2022 C. trachomatis rRNA APRIL+probe Ql (Unsp spec) Negative Negative [facility] HIV 1 and HIV-2 antibody ass ay with HIV-1 p24 antigen detectionOrdered By: Eliana Aleman on 11-24-2022 HIV 1+2 Ab+HIV1 p24 Ag IA Ql Non-Reactive Nonreactive [facility] Laboratory - Microbiology an d Antimicrobial susceptibilityOrdered By: Eliana Aleman on 11-24-2022 N. gonorrhoeae DNA APRIL+probe Ql (Unsp spec) Negative Negative [facility] Comment on above: Performed at: =[address] [id number] Director: Marisol Garcia MD, Phone: [phone] No Panel InformationOrdered By: Eliana Aleman on 11-24-2022 Hepatitis B Surface Antigen Non-Reactive Nonreactive [facility] Hepatitis C Antibody Non-Reactive Nonreactive [facility] Comment on above: Non Reactive: < 0.8 Equivocal: >/= 0.8 to < 1.0 Reactive: >/= 1.0The CDC recommends that a reactive/equivocal HCV antibody result be followed up by the HCV Nucleic Acid Amplificationtest (879315) Herpes Simplex Virus I IgG Antibody 0.94 index 0.00-0.90 [facility] Comment on above: A second sample shou ld be collected and tested no less than2-4 weeks. Negative <0.91 Equivocal 0.91 - 1.09 Positive >1.09 Note: Negative indicates no antibodies detected to HSV-1. Equivocal may suggest early infection. If clinically appropriate, retest at later date. Positive indicates antibodies detected to HSV-1. No Panel Informationon 11-24 POC Trichomonas (Rapid) Negative [facility] Serum Treponema species anti body detectionOrdered By: Eliana Aleman on 11-24-2022 Treponema sp Ab Ql (S) Non-Reactive [facility] Serum herpes simplex virus 2 antibody assay by immunoassay (units/volume)Ordered By: Eliana Aleman on 11-24-2022 HSV 2 Ab IA Qn (S) < 0.91 index 0.00-0.90 [facility] Comment on above: Negative <0.91 Equiv ocal [...] clinically appropriate, retest 4-6 weeks later.Performed at: [address] [id number] Director: Davis Raymundo PhD, Phone: [phone] Absolute lymphocyte countOrd ered By: HEALTH ASSESSMENT on 10-04-2022 Lymphocytes Auto (Unsp spec) [#/Vol] 2.19 10*3/uL 0.83-4.51 [facility] Absolute reticulocyte countO rdered By: HEALTH ASSESSMENT on 10-04-2022 Reticulocytes (Bld) [#/Vol] 0.00 10*3/uL 0-5 [facility] Basophil percentageOrdered B y: HEALTH ASSESSMENT on 10-04-2022 Basophil percentage 3.9 mg/dL 2.5-4.9 [facility] Bilirubin [Mass/Vol] 0.30 mg/dL 0.20-1.00 [facility] Comment on above: For patients on eltr ombopag therapy, use of [employer] TBIL is not recommended. Chloride [Moles/Vol] 106 mmol/L 98-107 [facility] Cholesterol [Mass/Vol] 156 mg/dL <200 [facility] Comment on above: <200 mg/dL Desirable 200-240 mg/dL Borderline >240 mg/dL High Risk Glucose [Mass/Vol] 121 mg/dL 74-106 [facility] Comment on above: Fasting Glucose resu lt from 100 to 125 mg/dL suggests IMPAIRED HOMEOSTASIS per A.D.A. criteria. LDH [Catalytic activity/Vol] 116 U/L 84-246 [facility] Neutrophils (Bld) [#/Vol] 3.6 10*3/uL 2.0-7.7 [facility] Potassium [Moles/Vol] 3.6 mmol/L 3.5-5.1 [facility] Protein [Mass/Vol] 7.6 g/dL 6.4-8.2 [facility] Sodium [Moles/Vol] 139 mmol/L 136-145 [facility] Triglyceride [Mass/Vol] 101 mg/dL <199 [facility] Comment on above: The drugs N-Acetylcy steine and Metamizole may falsely depress this assay.Serum Triglycerides Reference Interval Normal <150 mg/dL Borderline high 150 - 199 mg/dL High 200 - 499 mg/dL Very High > or = 500 mg/dL WBC (Bld) [#/Vol] 6.7 10*3/uL 4.4-11.0 [facility] Bilirubin Test strip Ql (U)O rdered By: HEALTH ASSESSMENT on 10-04-2022 Bilirubin Ql (U) Negative Negative [facility] Blood erythrocytes count (nu mber/volume)Ordered By: HEALTH ASSESSMENT on 10-04-2022 RBC (Bld) [#/Vol] 4.12 10*6/uL 4.2-5.4 [facility] Blood hemoglobin measurement (mass/volume)Ordered By: HEALTH ASSESSMENT on 10-04-2022 Hemoglobin (Bld) [Mass/Vol] 12.5 g/dL 12.0-15.0 [facility] Blood platelet mean volumeOr dered By: HEALTH ASSESSMENT on 10-04-2022 Platelet mean volume (Bld) [Entitic vol] 9.4 fL 6.2-12.0 [facility] Determination of erythrocyte mean corpuscular volume (MCV)Ordered By: HEALTH ASSESSMENT on 10-04-2022 MCV (RBC) [Entitic vol] 93.0 fL 81-99 [facility] Direct bilirubinOrdered By: HEALTH ASSESSMENT on 10-04-2022 Bilirubin.direct [Mass/Vol] 0.12 mg/dL 0.00-0.30 [facility] Hematocrit Auto (Bld) [Volum e fraction]Ordered By: HEALTH ASSESSMENT on 10-04-2022 Hematocrit (Bld) [Volume fraction] 38.3 % 37-47 [facility] Ketones Test strip Ql (U)Ord ered By: HEALTH ASSESSMENT on 10-04-2022 Ketones Ql (U) Negative Negative [facility] Laboratory - Chemistry and C hemistry - challengeOrdered By: HEALTH ASSESSMENT on 10-04-2022 ALP [Catalytic activity/Vol] 59 U/L 45-117 [facility] ALT [Catalytic activity/Vol] 35 U/L 13-56 [facility] Cholesterol.total/Chol esterol in HDL [Mass ratio] 3.80 {ratio} [facility] CO2 [Moles/Vol] 30.0 mmol/L 21.0-32.0 [facility] Globulin (S) [Mass/Vol] 4.1 g/dL 2.2-4.2 [facility] Urea nitrogen/Creatinine [Mass ratio] 10.5 mg/mg 10-20 [facility] Laboratory - Chemistry and C hemistry - challengeOrdered By: Franci Pena on 10-04-2022 Free T4 [Mass/Vol] 0.86 ng/dL 0.76-1.46 [facility] Laboratory - Hematology and Cell countsOrdered By: HEALTH ASSESSMENT on 10-04-2022 Erythrocyte distribution width (RBC) [Entitic vol] 51.3 fL 35.1-43.9 [facility] Erythrocyte distribution width (RBC) [Ratio] 15.1 % 11.6-14.6 [facility] MCH (RBC) [Entitic mass] 30.3 pg 27.0-32.0 [facility] Nucleated RBC/100 WBC (Bld) [Ratio] 0 % 0-5 [facility] MCHC Auto (RBC) [Mass/Vol]Or dered By: HEALTH ASSESSMENT on 10-04-2022 MCHC (RBC) [Mass/Vol] 32.6 g/dL 32-36 [facility] Nitrite Test strip Ql (U)Ord ered By: HEALTH ASSESSMENT on 10-04-2022 Nitrite Ql (U) Negative Negative [facility] No Panel InformationOrdered By: Franci Pena on 10-04-2022 Anti-Nuclear Antibody Screen Negative Negative [facility] Comment on above: Performed at: [facility] [address] [id number] Director: Davis Raymundo PhD, Phone: [phone] Thyroid Stimulating Hormone (TSH) 1.95 uIU/mL 0.358-3.74 [facility] No Panel InformationOrdered By: HEALTH ASSESSMENT on 10-04-2022 Estimated GFR (MDRD) Amer 111 mL/min >60 [facility] Comment on above: GFR Calc Estimated GFR (MDRD) Non-Af Amer 92 mL/min >60 [facility] [facility] Comment on above: Non- GFR Calc Platelets bldOrdered By: CRISTA [facility] ASSESSMENT on 10-04-2022 Platelets (Bld) [#/Vol] 317 10*3/uL 150-450 [facility] Protein Test strip Ql (U)Ord ered By: HEALTH ASSESSMENT on 10-04-2022 Protein Ql (U) 15 mg/dl Negative [facility] Segmented neutrophils/100 WB C Auto (Bld)Ordered By: HEALTH ASSESSMENT on 10-04-2022 Segmented neutrophils/100 WBC (Bld) 53.3 % 47-70 [facility] Serum or plasma albumin shay urement (mass/volume)Ordered By: HEALTH ASSESSMENT on 10-04-2022 Albumin [Mass/Vol] 3.5 g/dL 3.2-5.0 [facility] Serum or plasma albumin/glob ulin mass ratioOrdered By: HEALTH ASSESSMENT on 10-04-2022 Albumin/Globulin [Mass ratio] 0.9 {ratio} 0.9-2.4 [facility] Serum or plasma calcium shay urement (mass/volume)Ordered By: HEALTH ASSESSMENT on 10-04-2022 Calcium [Mass/Vol] 8.8 mg/dL 8.5-10.1 [facility] Serum or plasma cholesterol in HDL measurement (mass/volume)Ordered By: HEALTH ASSESSMENT on 10-04-2022 Cholesterol in HDL [Mass/Vol] 41 mg/dL >40 [facility] Comment on above: The drugs N-Acetylcy steine and Metamizole may falsely depress this assay. Reference Range HDL <40 mg/dL Low HDL Cholesterol HDL >or= 60 mg/dL High HDL Cholesterol Serum or plasma cholesterol in VLDL measurement (mass/volume)Ordered By: HEALTH ASSESSMENT on 10-04-2022 Cholesterol in VLDL [Mass/Vol] 20 mg/dL 5-40 [facility] Serum or plasma creatinine m easurement (mass/volume)Ordered By: HEALTH ASSESSMENT on 10-04-2022 Creatinine [Mass/Vol] 0.76 mg/dL 0.55-1.02 [facility] Comment on above: The validity of the calculated GFR & GFRAA in patients over 70 years has not been determined. Clinical correlation is essential. Serum or plasma low density lipoprotein (LDL) cholesterol measurement (mass/volume)Ordered By: HEALTH ASSESSMENT on 10-04-2022 Cholesterol in LDL [Mass/Vol] 95 mg/dL 0-130 [facility] Serum or plasma urea nitroge n measurement (mass/volume)Ordered By: HEALTH ASSESSMENT on 10-04-2022 Urea nitrogen [Mass/Vol] 8 mg/dL 7-18 [facility] Serum or plasma uric acid me asurement (mass/volume)Ordered By: HEALTH ASSESSMENT on 10-04-2022 Urate [Mass/Vol] 5.5 mg/dL 2.6-6.0 [facility] Comment on above: The drugs N-Acetylcy steine and Metamizole may falsely depress this assay. Serum rheumatoid factor dete ctionOrdered By: Franci Pena on 10-04-2022 Rheumatoid factor Ql (S) < 10.0 IU/mL <15 [facility] Thin prep Papanicolaou smear with manual screeningOrdered By: HEALTH ASSESSMENT on 10-04-2022 Thin prep Papanicolaou smear with manual screening 21 U/L 15-37 [facility] Thin prep Papanicolaou smear with manual screening 3 5-15 [facility] Urine blood detectionOrdered By: HEALTH ASSESSMENT on 10-04-2022 RBC Ql (U) Negative Negative [facility] Urine clarityOrdered By: [facility] ASSESSMENT on 10-04-2022 Clarity (U) Clear Clear [facility] Urine color determinationOrd ered By: HEALTH ASSESSMENT on 10-04-2022 Color (U) Yellow Yellow [facility] Urine glucose detectionOrder ed By: HEALTH ASSESSMENT on 10-04-2022 Glucose Ql (U) Normal mg/dl Normal [facility] Urine leukocyte esterase det ection by dipstickOrdered By: HEALTH ASSESSMENT on 10-04-2022 Leukocyte esterase Test strip Ql (U) Negative Negative [facility] Urine pHOrdered By: HEALTH A SSESSMENT on 10-04-2022 pH (U) 8.0 [pH] 5.0 - 8.0 [facility] Urine specific gravity measu rementOrdered By: HEALTH ASSESSMENT on 10-04-2022 Specific gravity (U) [Rel density] 1.010 1.002-1.030 [facility] Urobilinogen Auto test strip Ql (U)Ordered By: HEALTH ASSESSMENT on 10-04-2022 Urobilinogen Ql (U) Normal mg/dl Normal [facility] Basophil percentageOrdered B y: Dr. Cabrera on 03-09-2022 Bilirubin [Mass/Vol] 0.30 mg/dL 0.20-1.00 [facility] Comment on above: For patients on eltr ombopag therapy, use of [employer] TBIL is not recommended. Chloride [Moles/Vol] 108 mmol/L 98-107 [facility] Glucose [Mass/Vol] 85 mg/dL 74-106 [facility] Potassium [Moles/Vol] 3.8 mmol/L 3.5-5.1 [facility] Comment on above: Slight Hemolysis, Re sult may be falsely increased. Protein [Mass/Vol] 8.2 g/dL 6.4-8.2 [facility] Sodium [Moles/Vol] 139 mmol/L 136-145 [facility] Direct bilirubinOrdered By: Dr. Cabrera on 03-09-2022 Bilirubin.direct [Mass/Vol] 0.06 mg/dL 0.00-0.30 [facility] Laboratory - Chemistry and C hemistry - challengeOrdered By: Dr. Cabrera on 03-09-2022 ALP [Catalytic activity/Vol] 55 U/L 45-117 [facility] ALT [Catalytic activity/Vol] 34 U/L 13-56 [facility] CO2 [Moles/Vol] 26.0 mmol/L 21.0-32.0 [facility] Globulin (S) [Mass/Vol] 4.2 g/dL 2.2-4.2 [facility] Urea nitrogen/Creatinine [Mass ratio] 13.7 mg/mg 10-20 [facility] No Panel InformationOrdered By: Dr. Cabrera on 03-09-2022 Estimated GFR (MDRD) Amer 105 mL/min >60 [facility] Comment on above: GFR Calc Estimated GFR (MDRD) Non-Af Amer 87 mL/min >60 [facility] Comment on above: Non- GFR Calc Serum or plasma albumin shay urement (mass/volume)Ordered By: Dr. Cabrera on 03-09-2022 Albumin [Mass/Vol] 4.0 g/dL 3.2-5.0 [facility] Serum or plasma calcium shay urement (mass/volume)Ordered By: Dr. Cabrera on 03-09-2022 Calcium [Mass/Vol] 9.5 mg/dL 8.5-10.1 [facility] Serum or plasma creatinine m easurement (mass/volume)Ordered By: Dr. Cabrera on 03-09-2022 Creatinine [Mass/Vol] 0.80 mg/dL 0.55-1.02 [facility] Comment on above: The validity of the calculated GFR & GFRAA in patients over 70 years has not been determined. Clinical correlation is essential. Serum or plasma urea nitroge n measurement (mass/volume)Ordered By: Dr. Cabrera on 03-09-2022 Urea nitrogen [Mass/Vol] 11 mg/dL 7-18 [facility] Thin prep Papanicolaou smear with manual screeningOrdered By: Dr. Cabrera on 03-09-2022 Thin prep Papanicolaou smear with manual screening 22 U/L 15-37 [facility] Comment on above: Slight Hemolysis, Re sult may be falsely increased. Thin prep Papanicolaou smear with manual screening 5 5-15 [facility] Laboratory - Chemistry and C hemistry - challengeon 01-14-2022 HCG ( test) Ql (U) Negative [facility] Laboratory - Chemistry and C hemistry - challengeon 12-08-2021 HCG ( test) Ql (U) Negative [facility] Cervical or vagninal specime n microscopic examination by cytology stain (reported ason 11-18-2021 Cytology report Cyto stain Doc (Cvx/Vag) Comment . [facility] Work Phone: Comment on above: The Pap [...] rRNA APRIL+probe Ql (Unsp spec) Negative Negative [facility] Work Phone: Detection in cervical specim en of any of human papilloma virus (HPV) 16, 18, 31, 33,on 11-18-2021 HPV 16+18+31+33+35+39+45+5 1+52+56+58+59+66+68 DNA Probe+sig amp Ql (Cvx) Negative Negative [facility] Work Phone: Comment on above: This nucleic acid am plification test detects fourteen high- risk HPV types (16,18,31,33,35,39,45,51,52,56,58,59,66,68)without differentiation.Performed at: [facility] [address] [place], [place] [id number] Director: Manny Parekh MD, Phone: [phone] at: [facility] Lab[address] [id number] Director: Marisol Garcia MD, Phone: [phone] at: =[facility] [id number] Director: Marisol Garcia MD, Phone: [phone] Laboratory - Cytologyon 11-04 Laboratory Clerk Cyto stain Nom (Cvx/Vag) [ID] Comment . [facility] Work Phone: Comment on above: Holley Cabrera, Cytot echnologist Laboratory - Microbiology an d Antimicrobial susceptibilityon 11-18-2021 N. gonorrhoeae DNA APRIL+probe Ql (Unsp spec) Negative Negative [facility] Work Phone: Comment on above: Performed at: =G - [address] [id number] Director: Marisol Garcia MD, Phone: [phone] Laboratory - Miscellaneous t estson 11-18-2021 Service comment (Unsp spec) [Interp] Comment . [facility] Work Phone: Comment on above: This liquid based Th inPrep(R) pap test was screened withthe use of an image guided system. Service comment (Unsp spec) [Interp] . . [facility] Work Phone: No Panel Informationon 11-18 Pap Smear QC Review Comment . [facility] Work Phone: Comment on above: Amarjit Chapman totechnologist ([facility]) Pathology report final diagnosis Narrative Comment . [facility] Work Phone: Comment on above: NEGATIVE FOR INTRAEP ITHELIAL LESION OR MALIGNANCY.THIS SPECIMEN WAS RESCREENED PART OF OUR CHANGE CONTROL ANALYST PROGRAM. Laboratory - Microbiology an d Antimicrobial susceptibilityon 10-06-2021 SARS-CoV-2 (COVID-19) RNA APRIL+probe Ql (Unsp spec) Detected [facility] Work Phone: No Panel Informationon 10-06 POC Nasal Swab Influenza A,B Not detected [facility] Work Phone: POC Nasal Swab RSV Not detected [facility] Work Phone: Absolute lymphocyte counton 10-02-2021 Lymphocytes Auto (Unsp spec) [#/Vol] 2.22 10*3/uL 0.83-4.51 [facility] Work Phone: Basophil percentageon 2021 Basophil percentage 0 SEEN /hpf 0-5 [facility] Work Phone: Basophils/100 WBC (Bld) 0.7 % 0-1 [facility] Work Phone: Bilirubin [Mass/Vol] 0.20 mg/dL 0.20-1.00 [facility] Work Phone: Comment on above: For patients on eltr ombopag therapy, use of [employer] TBIL is not recommended. Chloride [Moles/Vol] 109 mmol/L 98-107 [facility] Work Phone: Eosinophils/100 WBC (Bld) 7.2 % 0-5 [facility] Work Phone: Glucose [Mass/Vol] 107 mg/dL 74-106 [facility] Work Phone: Comment on above: Fasting Glucose resu lt from 100 to 125 mg/dL suggests IMPAIRED HOMEOSTASIS per A.D.A. criteria. Neutrophils (Bld) [#/Vol] 3.9 10*3/uL 2.0-7.7 [facility] Work Phone: Neutrophils/100 WBC (Bld) 55.0 % 47-70 [facility] Work Phone: Potassium [Moles/Vol] 4.1 mmol/L 3.5-5.1 [facility] Work [facility]: Protein [Mass/Vol] 7.6 g/dL 6.4-8.2 [facility] Work Phone: Sodium [Moles/Vol] 138 mmol/L 136-145 [facility] Work Phone: WBC (Bld) [#/Vol] 7.1 10*3/uL 4.4-11.0 [facility] Work Phone: Beta hCG serum qualon 2021 Beta HCG ( test) Ql Negative [facility] Work Phone: Bilirubin Test strip Ql (U)o n 10-02-2021 Bilirubin Ql (U) Negative Negative [facility] Work Phone: Blood erythrocytes count (nu mber/volume)on 10-02-2021 RBC (Bld) [#/Vol] 4.30 10*6/uL 4.2-5.4 [facility] Work Phone: [phone] Blood hemoglobin measurement (mass/volume)on 10-02-2021 Hemoglobin (Bld) [Mass/Vol] 11.6 g/dL 12.0-15.0 [facility] Work Phone: Blood lymphocytes/100 leukoc yteson 10-02-2021 Lymphocytes/100 WBC (Bld) 31.1 % 19-41 [facility] Work Phone: Blood monocytes/100 leukocyt eson 10-02-2021 Monocytes/100 WBC (Bld) 5.9 % 0-10 [facility] Work Phone: Blood platelet mean volumeon 10-02-2021 Platelet mean volume (Bld) [Entitic vol] 9.2 fL 6.2-12.0 [facility] Work Phone: Determination of erythrocyte mean corpuscular volume (MCV)on 10-02-2021 MCV (RBC) [Entitic vol] 84.9 fL 81-99 [facility] Work Phone: Hematocrit Auto (Bld) [Volum e fraction]on 10-02-2021 Hematocrit (Bld) [Volume fraction] 36.5 % 37-47 [facility] Work Phone: Ketones Test strip Ql (U)on 10-02-2021 Ketones Ql (U) Negative Negative [facility] Work Phone: Laboratory - Chemistry and C hemistry - challengeon 10-02-2021 ALP [Catalytic activity/Vol] 40 U/L 45-117 [facility] Work Phone: ALT [Catalytic activity/Vol] 26 U/L 13-56 [facility] Work Phone: CO2 [Moles/Vol] 24.0 mmol/L 21.0-32.0 [facility] Work Phone: Globulin (S) [Mass/Vol] 4.0 g/dL 2.2-4.2 [facility] Work Phone: Urea nitrogen/Creatinine [Mass ratio] 12.7 mg/mg 10-20 [facility] Work Phone: Laboratory - Hematology and Cell countson 10-02-2021 Erythrocyte distribution width (RBC) [Entitic vol] 53.5 fL 35.1-43.9 [facility] Work Phone: Erythrocyte distribution width (RBC) [Ratio] 17.2 % 11.6-14.6 [facility] Work Phone: Immature granulocytes/100 WBC (Bld) 0.100 % 0.0-0.9 [facility] Work Phone: Comment on above: IG% - Immature Granu locytes (promyelocytes, myelocytes and metamyelocytes) > 1% indicates that a LEFT SHIFT is Present. MCH (RBC) [Entitic mass] 27.0 pg 27.0-32.0 [facility] Work Phone: Nucleated RBC/100 WBC (Bld) [Ratio] 0 % 0-5 [facility] Work Phone: MCHC Auto (RBC) [Mass/Vol]on 10-02-2021 MCHC (RBC) [Mass/Vol] 31.8 g/dL 32-36 [facility] Work Phone: Mucus LM Ql (Urine sed)on Mucus Ql (Urine sed) 0 SEEN /hpf [facility] Work Phone: Nitrite Test strip Ql (U)on 10-02-2021 Nitrite Ql (U) Negative Negative [facility] Work Phone: No Panel Informationon 10-02 Estimated Creatinine Clearance Calc 84.25 ml/min [facility] Work Phone: Estimated GFR (MDRD) Amer 121 mL/min >60 [facility] Work Phone: Comment on above: GFR Calc Estimated GFR (MDRD) Non-Af Amer 100 mL/min >60 [facility] Work Phone: Comment on above: Non- GFR Calc Platelets bldon 10-02-2021 Platelets (Bld) [#/Vol] 359 10*3/uL 150-450 [facility] Work Phone: Protein Test strip Ql (U)on 10-02-2021 Protein Ql (U) Negative Negative [facility] Work Phone: Serum or plasma albumin shay urement (mass/volume)on 10-02-2021 Albumin [Mass/Vol] 3.6 g/dL 3.2-5.0 [facility] Work Phone: Serum or plasma albumin/glob ulin mass ratioon 10-02-2021 Albumin/Globulin [Mass ratio] 0.9 {ratio} 0.9-2.4 [facility] Work Phone: Serum or plasma calcium shay urement (mass/volume)on 10-02-2021 Calcium [Mass/Vol] 9.4 mg/dL 8.5-10.1 [facility] Work Phone: Serum or plasma creatinine m easurement (mass/volume)on 10-02-2021 Creatinine [Mass/Vol] 0.71 mg/dL 0.55-1.02 [facility] Work Phone: Comment on above: The validity of the calculated GFR & GFRAA in patients over 70 years has not been determined. Clinical correlation is essential. Serum or plasma urea nitroge n measurement (mass/volume)on 10-02-2021 Urea nitrogen [Mass/Vol] 9 mg/dL 7-18 [facility] Work Phone: Squamous epithelial cells de tection in urine sediment by light microscopyon 10-02-2021 Epithelial cells.squamous LM Ql (Urine sed) 0-5 SEEN /hpf 5-10 [facility] Work Phone: Thin prep Papanicolaou smear with manual screeningon 10-02-2021 Thin prep Papanicolaou smear with manual screening 16 U/L 15-37 [facility] Work Phone: Thin prep Papanicolaou smear with manual screening 5 5-15 [facility] Work Phone: Urine blood detectionon 09-05 0 RBC Ql (U) Negative Negative [facility] Work Phone: RBC Ql (U) 0 SEEN /hpf 0-5 [facility] Work Phone: Urine clarityon 10-02-2021 Clarity (U) Clear Clear [facility] Work Phone: Urine color determinationon 10-02-2021 Color (U) Yellow Yellow [facility] Work Phone: Urine glucose detectionon Glucose Ql (U) Negative Normal [facility] Work Phone: Urine leukocyte esterase det ection by dipstickon 10-02-2021 Leukocyte esterase Test strip Ql (U) Negative Negative [facility] Work Phone: Urine pHon 10-02-2021 pH (U) 6.0 [pH] 5.0 - 8.0 [facility] Work Phone: Urine sediment bacteria coun t by microscopy (number/high power field)on 10-02-2021 Bacteria LM.HPF (Urine sed) [#/Area] 0 /[HPF] None Seen [facility] Work Phone: Urine specific gravity measu rementon 10-02-2021 Specific gravity (U) [Rel density] 1.015 1.002-1.030 [facility] Work Phone: Urobilinogen Auto test strip Ql (U)on 10-02-2021 Urobilinogen Ql (U) Normal mg/dl Normal [facility] Work Phone: Basophil percentageon 2021 Basophil percentage 0-5 SEEN /hpf 0-5 [facility] Work Phone: Laboratory - Chemistry and C hemistry - challengeon 09-30-2021 Glucose Ql (U) Negative [facility] Work Phone: HCG ( test) Ql (U) Negative [facility] Work Phone: Specific gravity (U) [Rel density] 1.010 [facility] Work Phone: Urobilinogen (U) [Mass/Vol] Negative [facility] Work Phone: Laboratory - Hematology and Cell countson 09-30-2021 Hemoglobin Ql (U) Hemolyzed [facility] Work Phone: Laboratory - Urinalysison Protein Ql (U) Negative [facility] Work Phone: Mucus LM Ql (Urine sed)on Mucus Ql (Urine sed) 0 SEEN /hpf [facility] Work Phone: Nitrite ur dipstickon 2021 Nitrite Ql (U) Negative [facility] Work Phone: No Panel Informationon 09-30 Urine Leukocytes Negatve [facility] Work Phone: Urine Non-Hemolyzed Blood Moderate [facility] Work Phone: Protein Test strip Ql (U)on 09-30-2021 Protein Ql (U) 15 mg/dl Negative [facility] Work Phone: Squamous epithelial cells de tection in urine sediment by light microscopyon 09-30-2021 Epithelial cells.squamous LM Ql (Urine sed) 0-5 SEEN /hpf 5-10 [facility] Work Phone: Urine blood detectionon 09-04 RBC Ql (U) 50 /ul Negative [facility] Work Phone: RBC Ql (U) 0-5 SEEN /hpf 0-5 [facility] Work Phone: Urine clarityon 09-30-2021 Clarity (U) Clear [facility] Work Phone: Urine color determinationon 09-30-2021 Color (U) Yellow [facility] Work Phone: Urine glucose detectionon Glucose Ql (U) Normal mg/dl Normal [facility] Work Phone: Urine ketones detection by t est stripon 09-30-2021 Ketones Ql (U) Negative [facility] Work Phone: Urine leukocyte esterase det ection by dipstickon 09-30-2021 Leukocyte esterase Test strip Ql (U) Negative Negative [facility] Work Phone: Urine pHon 09-30-2021 pH (U) 7.0 [pH] [facility] Work Phone: Urine sediment bacteria coun t by microscopy (number/high power field)on 09-30-2021 Bacteria LM.HPF (Urine sed) [#/Area] 1 /[HPF] None Seen [facility] Work Phone: Urine specific gravity measu rementon 09-30-2021 Specific gravity (U) [Rel density] 1.015 1.002-1.030 [facility] Work Phone: Urine total bilirubin detect ion by test stripon 09-30-2021 Bilirubin Ql (U) Negative [facility] Work Phone: Urobilinogen Auto test strip Ql (U)on 09-30-2021 Urobilinogen Ql (U) Normal mg/dl Normal [facility] Work Phone: Absolute lymphocyte counton 09-22-2021 Lymphocytes Auto (Unsp spec) [#/Vol] 1.84 10*3/uL 0.83-4.51 [facility] Work Phone: Absolute reticulocyte counto n 09-22-2021 Reticulocytes (Bld) [#/Vol] 0.00 10*3/uL 0-5 [facility] Work Phone: Basophil percentageon 2021 Basophil percentage 3.0 mg/dL 2.5-4.9 [facility] Work Phone: Bilirubin [Mass/Vol] 0.20 mg/dL 0.20-1.00 [facility] Work Phone: Comment on above: For patients on eltr ombopag therapy, use of [employer] TBIL is not recommended. Chloride [Moles/Vol] 105 mmol/L 98-107 [facility] Work Phone: Cholesterol [Mass/Vol] 157 mg/dL <200 [facility] Work Phone: Comment on above: <200 mg/dL Desirable 200-240 mg/dL Borderline >240 mg/dL High Risk Glucose [Mass/Vol] 102 mg/dL 74-106 [facility] Work Phone: Comment on above: Fasting Glucose resu lt from 100 to 125 mg/dL suggests IMPAIRED HOMEOSTASIS per A.D.A. criteria. Neutrophils (Bld) [#/Vol] 3.9 10*3/uL 2.0-7.7 [facility] Work Phone: Potassium [Moles/Vol] 3.9 mmol/L 3.5-5.1 [facility] Work Phone: Protein [Mass/Vol] 7.5 g/dL 6.4-8.2 [facility] Work Phone: Sodium [Moles/Vol] 137 mmol/L 136-145 [facility] Work Phone: Triglyceride [Mass/Vol] 210 mg/dL <199 [facility] Work Phone: Comment on above: The drugs N-Acetylcy steine and Metamizole may falsely depress this assay.Serum Triglycerides Reference Interval Normal <150 mg/dL Borderline high 150 - 199 mg/dL High 200 - 499 mg/dL Very High > or = 500 mg/dL WBC (Bld) [#/Vol] 6.5 10*3/uL 4.4-11.0 [facility] Work Phone: Bilirubin Test strip Ql (U)o n 09-22-2021 Bilirubin Ql (U) Negative Negative [facility] Work Phone: Blood erythrocytes count (nu mber/volume)on 09-22-2021 RBC (Bld) [#/Vol] 4.15 10*6/uL 4.2-5.4 [facility] Work Phone: Blood hemoglobin measurement (mass/volume)on 09-22-2021 Hemoglobin (Bld) [Mass/Vol] 11.1 g/dL 12.0-15.0 [facility] Work Phone: Blood platelet mean volumeon 09-22-2021 Platelet mean volume (Bld) [Entitic vol] 10.0 fL 6.2-12.0 [facility] Work Phone: Determination of erythrocyte mean corpuscular volume (MCV)on 09-22-2021 MCV (RBC) [Entitic vol] 85.1 fL 81-99 [facility] Work Phone: Direct bilirubinon 2 Bilirubin.direct [Mass/Vol] mg/dL 0.00-0.30 [facility] Work Phone: Hematocrit Auto (Bld) [Volum e fraction]on 09-22-2021 Hematocrit (Bld) [Volume fraction] 35.3 % 37-47 [facility] Work Phone: Ketones Test strip Ql (U)on 09-22-2021 Ketones Ql (U) 5 mg/dl Negative [facility] Work Phone: Laboratory - Chemistry and C hemistry - challengeon 09-22-2021 ALP [Catalytic activity/Vol] 39 U/L 45-117 [facility] Work Phone: ALT [Catalytic activity/Vol] 22 U/L 13-56 [facility] Work Phone: Cholesterol.total/Chol esterol in HDL [Mass ratio] 3.90 {ratio} [facility] Work Phone: CO2 [Moles/Vol] 23.0 mmol/L 21.0-32.0 [facility] Work Phone: Globulin (S) [Mass/Vol] 4.2 g/dL 2.2-4.2 [facility] Work Phone: Urea nitrogen/Creatinine [Mass ratio] 12.4 mg/mg 10-20 [facility] Work Phone: Laboratory - Hematology and Cell countson 09-22-2021 Erythrocyte distribution width (RBC) [Entitic vol] 53.1 fL 35.1-43.9 [facility] Work Phone: Erythrocyte distribution width (RBC) [Ratio] 17.3 % 11.6-14.6 [facility] Work Phone: MCH (RBC) [Entitic mass] 26.7 pg 27.0-32.0 [facility] Work Phone: Nucleated RBC/100 WBC (Bld) [Ratio] 0 % 0-5 [facility] Work Phone: MCHC Auto (RBC) [Mass/Vol]on 09-22-2021 MCHC (RBC) [Mass/Vol] 31.4 g/dL 32-36 [facility] Work Phone: Nitrite Test strip Ql (U)on 09-22-2021 Nitrite Ql (U) Negative Negative [facility] Work Phone: No Panel Informationon 09-22 Estimated GFR (MDRD) Amer 118 mL/min >60 [facility] Work Phone: Comment on above: GFR Calc Estimated GFR (MDRD) Non-Af Amer 98 mL/min >60 [facility] Work Phone: Comment on above: Non- GFR Calc Platelets bldon 09-22-2021 Platelets (Bld) [#/Vol] 364 10*3/uL 150-450 [facility] Work Phone: Protein Test strip Ql (U)on 09-22-2021 Protein Ql (U) Negative Negative [facility] Work Phone: Segmented neutrophils/100 WB C Auto (Bld)on 09-22-2021 Segmented neutrophils/100 WBC (Bld) 60.1 % 47-70 [facility] Work Phone: Serum or plasma albumin shay urement (mass/volume)on 09-22-2021 Albumin [Mass/Vol] 3.3 g/dL 3.2-5.0 [facility] Work Phone: Serum or plasma albumin/glob ulin mass ratioon 09-22-2021 Albumin/Globulin [Mass ratio] 0.8 {ratio} 0.9-2.4 [facility] Work Phone: Serum or plasma calcium shay urement (mass/volume)on 09-22-2021 Calcium [Mass/Vol] 9.2 mg/dL 8.5-10.1 [facility] Work Phone: Serum or plasma cholesterol in HDL measurement (mass/volume)on 09-22-2021 Cholesterol in HDL [Mass/Vol] 40 mg/dL >40 [facility] Work Phone: Comment on above: The drugs N-Acetylcy steine and Metamizole may falsely depress this assay. Reference Range HDL <40 mg/dL Low HDL Cholesterol HDL >or= 60 mg/dL High HDL Cholesterol Serum or plasma cholesterol in VLDL measurement (mass/volume)on 09-22-2021 Cholesterol in VLDL [Mass/Vol] 42 mg/dL 5-40 [facility] Work Phone: Serum or plasma creatinine m easurement (mass/volume)on 09-22-2021 Creatinine [Mass/Vol] 0.72 mg/dL 0.55-1.02 [facility] Work Phone: Comment on above: The validity of the calculated GFR & GFRAA in patients over 70 years has not been determined. Clinical correlation is essential. Serum or plasma low density lipoprotein (LDL) cholesterol measurement (mass/volume)on 09-22-2021 Cholesterol in LDL [Mass/Vol] 75 mg/dL 0-130 [facility] Work Phone: Serum or plasma urea nitroge n measurement (mass/volume)on 09-22-2021 Urea nitrogen [Mass/Vol] 9 mg/dL 7-18 [facility] Work Phone: Serum or plasma uric acid me asurement (mass/volume)on 09-22-2021 Urate [Mass/Vol] 4.9 mg/dL 2.6-6.0 [facility] Work Phone: Comment on above: The drugs N-Acetylcy steine and Metamizole may falsely depress this assay. Thin prep Papanicolaou smear with manual screeningon 09-22-2021 Thin prep Papanicolaou smear with manual screening 14 U/L 15-37 [facility] Work Phone: Thin prep Papanicolaou smear with manual screening 9 5-15 [facility] Work Phone: Thin prep Papanicolaou smear with manual screening 97 U/L 84-246 [facility] Work Phone: Urine blood detectionon 09-04 RBC Ql (U) 25 /ul Negative [facility] Work Phone: Urine clarityon 09-22-2021 Clarity (U) Sl. Cloudy Clear [facility] Work Phone: Urine color determinationon 09-22-2021 Color (U) Yellow Yellow [facility] Work Phone: Urine glucose detectionon Glucose Ql (U) Normal mg/dl Normal [facility] Work Phone: Urine leukocyte esterase det ection by dipstickon 09-22-2021 Leukocyte esterase Test strip Ql (U) 25 /ul Negative [facility] Work Phone: Urine pHon 09-22-2021 pH (U) 6.5 [pH] 5.0 - 8.0 [facility] Work Phone: Urine specific gravity measu rementon 09-22-2021 Specific gravity (U) [Rel density] 1.010 1.002-1.030 [facility] Work Phone: Urobilinogen Auto test strip Ql (U)on 09-22-2021 Urobilinogen Ql (U) Normal mg/dl Normal [facility] Work Phone: Laboratory - Microbiology an d Antimicrobial susceptibilityon 08-27-2021 SARS-CoV-2 (COVID-19) RNA APRIL+probe Ql (Unsp spec) Not detected [facility] Work Phone: No Panel Informationon 08-27 POC Nasal Swab Influenza A,B Not detected [facility] Work Phone: POC Nasal Swab RSV Not detected [facility] Work Phone: Laboratory - Microbiology an d Antimicrobial susceptibilityon 06-15-2021 SARS-CoV-2 (COVID-19) RNA APRIL+probe Ql (Unsp spec) Not detected [facility] Work Phone: No Panel Informationon 06-15 Influenza Types A,B Rapid (Clinic) Not detected [facility] Work Phone: CNOVon 08-15-2017 CNOV Office Visit ([facility]) FROYYARI MCCORD ([id number]) 1985 FDate Time Provider Department08/15/17 2:15 PM KERRIE GALEANA (MAT) [facility] During [...] or thepuerperium, unspecified as to episode of care(318.00) 2009 Gestational diabetes- Health examination of defined [...] food and eating, and after [facility], and after coughing, blowing the nose, or [...] 9 - ItchingDate Reviewed: 08/15/2017Reviewed by: Kerrie ([facility]) Kervin Vogel AssessedReason for Visit: Cough [28] Cmt: congestion [...] improve nasal congestion. Most drugstores in the [place] carry pseudoephedrine behind the counter, so [...] Status:Closed by KERRIE GALEANA on 08/15/17 Normal [facility] PROGRESSon 08-15-2017 Protein mass conc HNO ID: [id number] thor: Kerrie ([facility]) Jocelyne: (none)Author Type: Nurse PractitionerType: Progress [...] Gestational diabetes- Health examination of defined subpopulation 04.23.12 Brought documentation of Tdap 02.20.12. H Neli [...] analgesia.- Discussed expected course of illnessKerrie Galeana APRN.ACCOUNTS EXECUTIVE Normal [facility] Culture, urine Bacteria identified Cx Nom (U) Positive [facility] Work Phone: Vital Signs Date Time Vital Sign Value Performing Clinician Cedric austin 11-24-2022 08:40-0400 Body height 154.94 cm MATERIAL EXPEDITERGeovanna Pena MATERIAL EXPEDITER Work Phone: [facility] 11-24-2022 08:38-0400 Body mass index (BMI) [Ratio] 34.7 kg/m2 MATERIAL EXPEDITERGeovanna Pena MATERIAL EXPEDITER Work Phone: [facility] 11-24-2022 08:38-0400 Body weight 83.46 kg MATERIAL EXPEDITER-Bethany Pena MATERIAL EXPEDITER Work Phone: [facility] 11-24-2022 08:38-0400 Diastolic blood pressure 87 mm[Hg] MATERIAL EXPEDITERGeovanna Pena MATERIAL EXPEDITER Work Phone: [facility] 11-24-2022 08:38-0400 Systolic blood pressure 130 mm[Hg] MATERIAL EXPEDITERGeovanna Pena MATERIAL EXPEDITER Work Phone: [facility] 10-24-2022 10:57-0400 Body height 154.94 cm MATERIAL EXPEDITERGeovanna Pena MATERIAL EXPEDITER Work Phone: [facility] 10-24-2022 10:57-0400 Body mass index (BMI) [Ratio] 35.3 kg/m2 MATERIAL EXPEDITERGeovanna Pena MATERIAL EXPEDITER Work Phone: [facility] 10-24-2022 10:57-0400 Body weight 84.82 kg MATERIAL EXPEDITER-C Franci Pena MATERIAL EXPEDITER Work Phone: [facility] 01-14-2022 09:50-0500 Body height 154.94 cm MATERIAL EXPEDITER-C Franci Pena MATERIAL EXPEDITER Work Phone: [facility] 01-14-2022 09:50-0500 Body mass index (BMI) [Ratio] 33.7 kg/m2 MATERIAL EXPEDITER-C Franci Pena MATERIAL EXPEDITER Work Phone: [facility] 01-14-2022 09:50-0500 Body weight 80.9 kg MATERIAL EXPEDITER-C Franci Pena MATERIAL EXPEDITER Work Phone: [facility] 01-14-2022 09:50-0500 Diastolic blood pressure 89 mm[Hg] MATERIAL EXPEDITER-C Franci Pena MATERIAL EXPEDITER Work Phone: [facility] 01-14-2022 09:50-0500 Systolic blood pressure 146 mm[Hg] MATERIAL EXPEDITER-C Franci Pena MATERIAL EXPEDITER Work Phone: [facility] 01-07-2022 11:00-0400 Body mass index (BMI) [Ratio] 33.3 kg/m2 MATERIAL EXPEDITER-C Franci Pnea MATERIAL EXPEDITER Work Phone: [facility] 01-07-2022 11:00-0400 Body weight 80.05 kg MATERIAL EXPEDITER-C Franci Pena MATERIAL EXPEDITER Work Phone: [facility] 01-07-2022 11:00-0400 Diastolic blood pressure 93 mm[Hg] MATERIAL EXPEDITER-C Franci Pena MATERIAL EXPEDITER Work Phone: [facility] 01-07-2022 11:00-0400 Systolic blood pressure 144 mm[Hg] MATERIAL EXPEDITER-C Franci Pena MATERIAL EXPEDITER Work Phone: [facility] 12-22-2021 10:33-0400 Body height 154.94 cm MATERIAL EXPEDITER-C Franci Pena MATERIAL EXPEDITER Work Phone: [facility] Work Phone: 12-22-2021 10:27-0400 Body mass index (BMI) [Ratio] 33.5 kg/m2 MATERIAL EXPEDITER-C Franci Pena MATERIAL EXPEDITER Work Phone: [facility] 12-22-2021 10:27-0400 Body weight 80.39 kg MATERIAL EXPEDITER-C Franci Pena MATERIAL EXPEDITER Work Phone: [facility] 12-22-2021 10:27-0400 Diastolic blood pressure 88 mm[Hg] MATERIAL EXPEDITER-C Franci Pena MATERIAL EXPEDITER Work Phone: [facility] 12-22-2021 10:27-0400 Systolic blood pressure 133 mm[Hg] MATERIAL EXPEDITER-C Franci Pena MATERIAL EXPEDITER Work Phone: [facility] 12-08-2021 14:27-0400 Body height 154.94 cm MATERIAL EXPEDITER-C Franci Pena MATERIAL EXPEDITER Work Phone: [facility] Work Phone: 12-08-2021 14:25-0400 Body mass index (BMI) [Ratio] 32.9 kg/m2 MATERIAL EXPEDITER-C Franci Pena MATERIAL EXPEDITER Work Phone: [facility] 12-08-2021 14:25-0400 Body weight 79.15 kg MATERIAL EXPEDITER-C Franci Pena MATERIAL EXPEDITER Work Phone: [facility] 12-08-2021 14:25-0400 Diastolic blood pressure 87 mm[Hg] MATERIAL EXPEDITER-C Franci Pena MATERIAL EXPEDITER Work Phone: [facility] 12-08-2021 14:25-0400 Systolic blood pressure 128 mm[Hg] MATERIAL EXPEDITER-C Franci Pena MATERIAL EXPEDITER Work Phone: [facility] 11-18-2021 09:16-0400 Body height 154.94 cm MATERIAL EXPEDITER-C Franci Pena MATERIAL EXPEDITER Work Phone: [facility] Work Phone: 11-18-2021 09:16-0400 Body mass index (BMI) [Ratio] 33.3 kg/m2 MATERIAL EXPEDITER-C Franci Pena MATERIAL EXPEDITER Work Phone: [facility] Work Phone: 11-18-2021 09:16-0400 Body weight 79.94 kg MATERIAL EXPEDITER-C Franci Pena MATERIAL EXPEDITER Work Phone: [facility] Work Phone: 11-18-2021 09:16-0400 Diastolic blood pressure 85 mm[Hg] MATERIAL EXPEDITER-C Franci Pena MATERIAL EXPEDITER Work Phone: [facility] Work Phone: 11-18-2021 09:16-0400 Systolic blood pressure 123 mm[Hg] MATERIAL EXPEDITER-C Franci Pena MATERIAL EXPEDITER Work Phone: [facility] Work Phone: 10-02-2021 11:39-0400 Body temperature 98.2 [degF] MATERIAL EXPEDITER-C Franci Pena MATERIAL EXPEDITER Work Phone: [facility] Work Phone: 10-02-2021 11:39-0400 Diastolic blood pressure 75 mm[Hg] MATERIAL EXPEDITER-C Franci Pena MATERIAL EXPEDITER Work Phone: [facility] Work Phone: 10-02-2021 11:39-0400 Heart rate 64 /min MATERIAL EXPEDITER-C Franci Pena MATERIAL EXPEDITER Work Phone: [facility] Work Phone: 10-02-2021 11:39-0400 Respiratory rate 18 /min MATERIAL EXPEDITER-C Franci Pena MATERIAL EXPEDITER Work Phone: [facility] Work Phone: 10-02-2021 11:39-0400 SaO2% (BldA) [Mass fraction] 99 % MATERIAL EXPEDITER-C Franci Pena MATERIAL EXPEDITER Work Phone: [facility] Work Phone: 10-02-2021 11:39-0400 Systolic blood pressure 113 mm[Hg] MATERIAL EXPEDITER-C Franci Pena MATERIAL EXPEDITER Work Phone: [facility] Work Phone: 10-02-2021 09:44-0400 Body height 154.94 cm MATERIAL EXPEDITER-C Franci Pena MATERIAL EXPEDITER Work Phone: [facility] Work Phone: 10-02-2021 09:44-0400 Body mass index (BMI) [Ratio] 34.5 kg/m2 MATERIAL EXPEDITER-C Franci Pena MATERIAL EXPEDITER Work Phone: [facility] Work Phone: 10-02-2021 09:44-0400 Body weight 83 kg MATERIAL EXPEDITER-C Franci Pena MATERIAL EXPEDITER Work Phone: [facility] Work Phone: 09-30-2021 17:09-0400 Body temperature 97.1 [degF] MATERIAL EXPEDITER-C Franci Pena MATERIAL EXPEDITER Work Phone: [facility] Work Phone: 09-30-2021 17:09-0400 Diastolic blood pressure 82 mm[Hg] MATERIAL EXPEDITER-C Franci Pena MATERIAL EXPEDITER Work Phone: [facility] Work Phone: 09-30-2021 17:09-0400 Heart rate 127 /min MATERIAL EXPEDITER-C Franci Pena MATERIAL EXPEDITER Work Phone: [facility] Work Phone: 09-30-2021 17:09-0400 Respiratory rate 16 /min MATERIAL EXPEDITER-C Franci Pena MATERIAL EXPEDITER Work Phone: [facility] Work Phone: 09-30-2021 17:09-0400 SaO2% (BldA) [Mass fraction] 98 % MATERIAL EXPEDITER-C Franci Pena MATERIAL EXPEDITER Work Phone: [facility] Work Phone: 09-30-2021 17:09-0400 Systolic blood pressure 140 mm[Hg] MATERIAL EXPEDITER-C Franci Pena MATERIAL EXPEDITER Work Phone: [facility] Work Phone: 06-15-2021 17:31-0400 Body temperature 98.1 [degF] MATERIAL EXPEDITER-C Franci Pena MATERIAL EXPEDITER Work Phone: [facility] Work Phone: 06-15-2021 17:31-0400 Diastolic blood pressure 80 mm[Hg] MATERIAL EXPEDITER-C Franci Pena MATERIAL EXPEDITER Work Phone: [facility] Work Phone: 06-15-2021 17:31-0400 Heart rate 116 /min MATERIAL EXPEDITER-C Franci Pena MATERIAL EXPEDITER Work Phone: [facility] Work Phone: 06-15-2021 17:31-0400 Respiratory rate 16 /min MATERIAL EXPEDITER-C Franci Pena MATERIAL EXPEDITER Work Phone: [facility] Work Phone: 06-15-2021 17:31-0400 SaO2% (BldA) [Mass fraction] 98 % MATERIAL EXPEDITER-C Franci Pena MATERIAL EXPEDITER Work Phone: [facility] Work Phone: 06-15-2021 17:31-0400 Systolic blood pressure 140 mm[Hg] MATERIAL EXPEDITER-C Franci Pena MATERIAL EXPEDITER Work Phone: [facility] Work Phone: Encounters Encounter Date Encounter Type Care Provider Facility Start: 01-10-2025 ambulatory Franci Pena MATERIAL EXPEDITER Facil ity:[facility] Start: 01-08-2025 ambulatory Franci Pena MATERIAL EXPEDITER Facil ity:[facility] Start: 01-01-2025 End: 01-05-2025 ambulatory FRANCI PENA PROCESS ARCHITECT-ACCOUNTS EXECUTIVE Facility:[facility] Start: 01-01-2025 End: 01-05-2025 Outreach Lab NEYDA NICHOLAS MD [facility] Start: 12-23-2024 End: 12-23-2024 ambulatory Franci Pena MATERIAL EXPEDITER Facility:[facility] Start: 11-26-2024 ambulatory Franci Pena MATERIAL EXPEDITER Facil ity:[facility] Start: 11-26-2024 End: 11-26-2024 ambulatory Franci Pena MATERIAL EXPEDITER Facility:[facility] Start: 05-31-2023 End: 06-01-2023 ambulatory FRANCI PENA PROCESS ARCHITECT-ACCOUNTS EXECUTIVE Facility:[facility] Start: 05-31-2023 End: 05-31-2023 Patient encounter procedure FRANCI PENA PROCESS ARCHITECT-ACCOUNTS EXECUTIVE [facility] Start: 05-17-2023 End: 05-22-2023 ambulatory FRANCI PENA PROCESS ARCHITECT-ACCOUNTS EXECUTIVE Facility:[facility] Start: 05-17-2023 End: 05-21-2023 Outreach Lab FRANCI LINARESRODO PROCESS ARCHITECT-ACCOUNTS EXECUTIVE [facility] Start: 05-11-2023 End: 05-16-2023 ambulatory DALLAS JARVIS PROCESS ARCHITECT-ACCOUNTS EXECUTIVE Facility:[facility] Start: 05-11-2023 End: 05-15-2023 Outreach Lab DALLAS DANA PROCESS ARCHITECT-ACCOUNTS EXECUTIVE [facility] Start: 11-24-2022 End: 11-24-2022 ambulatory MATERIAL EXPEDITER-C Franci Pena MATERIAL EXPEDITER Work Phone: [facility] Work Phone: Start: 11-24-2022 End: 11-24-2022 Patient encounter procedure MATERIAL EXPEDITER-C Franci Pena MATERIAL EXPEDITER Work Phone: [facility]-Laboratory Work Phone: Start: 11-24-2022 End: 11-24-2022 Patient encounter procedure MATERIAL EXPEDITER-C Franci Pena MATERIAL EXPEDITER Work Phone: [facility] Work Phone: Start: 10-24-2022 End: 10-24-2022 Patient encounter procedure MATERIAL EXPEDITER-C Franci Pena MATERIAL EXPEDITER Work Phone: [facility] Work Phone: Start: 10-24-2022 End: 10-24-2022 ambulatory MATERIAL EXPEDITER-C Franci Pena MATERIAL EXPEDITER Work Phone: [facility] Work Phone: Start: 10-24-2022 End: 10-24-2022 Patient encounter procedure MATERIAL EXPEDITER-Bethany Pena MATERIAL EXPEDITER Work Phone: [facility]-Radiology, [facility] Work Phone: Start: 10-04-2022 Registered Referred MATERIAL EXPEDITER-C Ashley Pena MATERIAL EXPEDITER Work Phone: [facility]-Employee Health Start: 10-04-2022 End: 10-04-2022 ambulatory MATERIAL EXPEDITER-C Franci Pena MATERIAL EXPEDITER Work Phone: [facility] Work Phone: Start: 10-04-2022 End: 10-04-2022 Patient encounter procedure MATERIAL EXPEDITER-C Franci Pena MATERIAL EXPEDITER Work Phone: [facility]-Laboratory Work Phone: Start: 06-17-2022 End: 06-17-2022 Patient encounter procedure MATERIAL EXPEDITER-C Franci Pena MATERIAL EXPEDITER Work Phone: [facility] Work Phone: Start: 2022 End: [facility] Work Phone: Start: 2022 End: 2022 Patient encounter procedure [facility]-Outpatient Breast Imaging Start: 03-09-2022 End: 03-09-2022 ambulatory MATERIAL EXPEDITER-C Franci Pena MATERIAL EXPEDITER Work Phone: [facility] Work Phone: Start: 03-09-2022 End: 03-09-2022 Patient encounter procedure MATERIAL EXPEDITER-Bethany Pena MATERIAL EXPEDITER Work Phone: [facility]-Laboratory Start: 01-14-2022 End: 01-14-2022 Patient encounter procedure MATERIAL EXPEDITER-Bethany Pena MATERIAL EXPEDITER Work Phone: [facility] Start: 01-07-2022 End: 01-07-2022 Patient encounter procedure MATERIAL EXPEDITER-C Franci Pena MATERIAL EXPEDITER Work Phone: [facility] Start: 12-30-2021 End: 12-30-2021 ambulatory MATERIAL EXPEDITER-C Franci Pena MATERIAL EXPEDITER Work Phone: [facility] Work Phone: Start: 12-30-2021 End: 12-30-2021 Patient encounter procedure MATERIAL EXPEDITER-C Franci Pena MATERIAL EXPEDITER Work Phone: [facility]-Ultrasound, [facility] Start: 12-22-2021 End: 12-22-2021 Patient encounter procedure MATERIAL EXPEDITER-C Franci Pena MATERIAL EXPEDITER Work Phone: [facility] Start: 12-15-2021 End: 12-15-2021 ambulatory MATERIAL EXPEDITER-C Franci Pena MATERIAL EXPEDITER Work Phone: [facility] Work Phone: Start: 12-15-2021 End: 12-15-2021 Patient encounter procedure MATERIAL EXPEDITER-C Franci Pena MATERIAL EXPEDITER Work Phone: [facility]-Outpatient Pavilion Ultrasound Start: 12-08-2021 End: 12-08-2021 Patient encounter procedure MATERIAL EXPEDITER-C Franci Pena MATERIAL EXPEDITER Work Phone: [facility] Start: 11-18-2021 End: 11-18-2021 ambulatory MATERIAL EXPEDITER-C Frnaci Pena MATERIAL EXPEDITER Work Phone: [facility] Work Phone: Start: 11-18-2021 End: 11-18-2021 Patient encounter procedure MATERIAL EXPEDITER-C Franci Pena MATERIAL EXPEDITER Work Phone: [facility]-Laboratory, Specimen Start: 11-18-2021 End: 11-18-2021 Patient encounter procedure MATERIAL EXPEDITER-C Franci Pena MATERIAL EXPEDITER Work Phone: [facility] Start: 10-06-2021 End: 10-06-2021 Patient encounter procedure MATERIAL EXPEDITER-C Franci Pena MATERIAL EXPEDITER Work Phone: [facility] Start: 10-02-2021 End: 10-02-2021 Emergency department patient visit MATERIAL EXPEDITER-C Franci Pena MATERIAL EXPEDITER [facility] Start: 09-30-2021 End: 09-30-2021 Patient encounter procedure MATERIAL EXPEDITER-C Franci Pena MATERIAL EXPEDITER [facility] Phone[facility] Start: 09-30-2021 End: 09-30-2021 Patient encounter procedure MATERIAL EXPEDITER-C Franci Pena MATERIAL EXPEDITER Work Phone: [facility] Start: 09-22-2021 Registered Referred MATERIAL EXPEDITER-C Ashley Pena MATERIAL EXPEDITER Work Phone: [facility] Start: 08-27-2021 End: 08-27-2021 Patient encounter procedure MATERIAL EXPEDITER-C Franci Pena MATERIAL EXPEDITER Work Phone: [facility] Start: 08-19-2021 End: 08-19-2021 Patient encounter procedure MATERIAL EXPEDITER-C Franci Pena MATERIAL EXPEDITER Work Phone: [facility] Start: 08-04-2021 End: 08-04-2021 Patient encounter procedure MATERIAL EXPEDITER-C Franci Pena MATERIAL EXPEDITER Work Phone: [facility] Start: 06-15-2021 End: 06-15-2021 Patient encounter procedure MATERIAL EXPEDITER-C Franci Pena MATERIAL EXPEDITER Work Phone: [facility] Start: 06-15-2021 End: 06-15-2021 Patient encounter procedure MATERIAL EXPEDITER-C Franci Pena MATERIAL EXPEDITER Work Phone: [facility] Start: 08-15-2017 End: 12-30-2017 Patient encounter [facility] Lance veland Procedures Date Procedure Procedure Detail Performing Clinician Start: 10-24-2022 Plain X-ray of shoulder MATERIAL EXPEDITER-C Franci Pena MATERIAL EXPEDITER Work Phone: Start: 2022 Screening mammography Start: 12-30-2021 Pelvic echography MATERIAL EXPEDITER-Bethany Pena MATERIAL EXPEDITER Work Phone: Start: 12-30-2021 Transvaginal echography MATERIAL EXPEDITER-Bethany Pena MATERIAL EXPEDITER Work Phone: Start: 12-15-2021 Pelvic echography MATERIAL EXPEDITER-Bethany Pena MATERIAL EXPEDITER Work Phone: Start: 12-15-2021 Transvaginal echography MATERIAL EXPEDITER-C Franci Pena MATERIAL EXPEDITER Work Phone: Start: 10-02-2021 CT of abdomen and pe lvis without contrast MATERIAL EXPEDITER-Bethany Pena MATERIAL EXPEDITER Work Phone: Start: 03-06-2013 section [facility]CHIT[facility]-ACCOUNTS EXECUTIVE Entire right lower l eg (body structure) [facility] PROC[facility] ARCHITECT-ACCOUNTS EXECUTIVE Comment on above: surgery at age 14 Urine culture MATERIAL EXPEDITER-Bethany earl MATERIAL EXPEDITER Work Phone: Plan of Treatment Date Care Activity Detail Author Start: 11-18-2021 Liquid based cervica l cytology screening [facility] Work Phone: MG Breast - bilatera l Screening [facility] Work Phone: Path report.final Dx Spec [facility] Work Phone: Patient Education ED Flank Pain, Uncertain Cause ED Pelvic Pain, Unknown Cause [facility] Work Phone: Patient referral [facility] Work Phone: [facility] Immunizations Immunization Date Immunization Notes Care Provider Fa shaina 01-18-2024 influenza virus vaccine, unspecified formulation NEYDA NICHOLAS MD [facility] 11-28-2023 tetanus toxoid, redu hilton diphtheria toxoid, and acellular pertussis vaccine, adsorbed; Translations: [Boostrix (Tdap)] NEYDA NICHOLAS MD [facility] 12-22-2022 influenza virus vaccine, unspecified formulation [facility] PROCESS ARCHITECT-ACCOUNTS EXECUTIVE [facility] 01-31-2022 influenza virus vaccine, unspecified formulation [facility] PROCESS ARCHITECT-ACCOUNTS EXECUTIVE [facility] 01-31-2022 influenza, injectabl e, quadrivalent, preservative free MATERIAL EXPEDITER-C Franci Lorson MATERIAL EXPEDITER Work Phone: [facility] 01-31-2022 influenza, seasonal, injectable MATERIAL EXPEDITER-C Franci Lorson MATERIAL EXPEDITER Work Phone: [facility] 02-22-2021 Covid (Pfizer) MATERIAL EXPEDITER-C Franci Lorson MATERIAL EXPEDITER Work Phone: [facility] 02-01-2021 Covid (Pfizer) MATERIAL EXPEDITER-C Franci Lorson MATERIAL EXPEDITER Work Phone: [facility] 12-09-2020 influenza virus vaccine, unspecified formulation [facility] PROCESS ARCHITECT-ACCOUNTS EXECUTIVE [facility] 12-09-2020 influenza, injectabl e, quadrivalent, preservative free MATERIAL EXPEDITER-C Franci Lorson MATERIAL EXPEDITER Work Phone: [facility] 12-09-2020 influenza, seasonal, injectable MATERIAL EXPEDITER-C Franci Lorson MATERIAL EXPEDITER Work Phone: [facility] 03-11-2020 influenza virus vaccine, unspecified formulation [facility] PROCESS ARCHITECT-ACCOUNTS EXECUTIVE [facility] 03-11-2020 influenza, injectabl e, quadrivalent, preservative free MATERIAL EXPEDITER-C Franci Lorson MATERIAL EXPEDITER Work Phone: [facility] 03-11-2020 influenza, seasonal, injectable MATERIAL EXPEDITER-C Franci Lorson MATERIAL EXPEDITER Work Phone: [facility] 01-06-2014 influenza virus vaccine, unspecified formulation [place] [place] PROCESS ARCHITECT-ACCOUNTS EXECUTIVE [facility] Payers Date Payer Category Payer Private Health Insurance [id number] 2024 Self-pay [id number] 2023 Unknown [id number] 2023 Unknown [id number] 1987 Unknown [id number] 2.16.8 [id number] 1987 Unknown [id number] 2.16.8 [id number] 1987 Unknown [id number] 2.16.8 [id number] 1987 Unknown [id number] 2.16. [id number] Unknown [id number] Unknown [id number] 2.16.8 [id number] Unknown [id number] 2.16.8 [id number] Unknown [id number] 2.16.8 [id number] Unknown [id number] 2.16.8 [id number] Unknown [id number] 2.16.8 [id number] Social History Date Type Detail Facility [facility] Work Phone: Start: 10-02-2021 End: 11-24-2022 Tobacco smoking status NHIS Unknown if ever smoked [facility] Start: 1985 Sex Assigned At Female [facility] Start: 08-07-2019 Tobacco smoking status Never s moked tobacco (finding) [facility] [place] Sexual Orientation [facility] ospital [facility] Start: 12-28-2017 Sex Female (finding) [facility] Goals Date Patient Goal Desired Activity /State [...] Locations *1: This test was performed at: [facility] [place], [address] [place] [address], [facility] , [facility] ([place]) 05-18-2023 Note . MICRO - Microbiology PROCEDURE: [...] Locations *1: This test was performed at: [address], [address]- , [facility] ([place]) 05-13-2023 Note . MICRO - Microbiology PROCEDURE: [...] Locations *1: This test was performed at: [address], [facility] , [facility] ([place]) 11-18-2021 Note [facility] Work Phone: Pap Smear Specimen Adequacy November 18, 2021 12:39pm Comment . Satisfactory for evaluation. Endocervical and/or squamous metaplasticcells (endocervical component) are present. Comment on above: Satisfactory for jaylen luation. Endocervical and/or squamous metaplasticcells (endocervical component) are present. 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 COVID-19 POSSIBLE UTI URINARY S/S COVID TEST/ILL X3DAYS Reason for Visit Acute bronchitis Contact with or suspected exposure to other viral communicable disease Back pain Segmental and somatic dysfunction of cervical region Segmental and somatic dysfunction of lumbar region Segmental and somatic dysfunction of pelvic region Segmental and somatic dysfunction of thoracic region Hematuria [facility] Work Phone: Chief complaint+Reason for visit Narrative* Chief Complaint 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 COVID-19 POSSIBLE UTI URINARY S/S COVID 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/ILL 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) Reason for Visit Back pain Segmental and somatic dysfunction of cervical region Segmental and somatic dysfunction of lumbar region Segmental and somatic dysfunction of pelvic region Segmental and somatic dysfunction of thoracic region Hematuria Encounter for routine gynecological examination [facility] Work Phone: Chiih complaint+Reason for visit Narrative* Chief Complaint ADJUSTMENT COVID-19 POSSIBLE UTI URINARY S/S COVID TEST/ILL 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) VINICIO INSERTION CHECK IUD PLACEMENT Reason for Visit Back pain Segmental and somatic dysfunction of cervical region Segmental and somatic dysfunction of lumbar region Segmental and somatic dysfunction of pelvic region Segmental and somatic dysfunction of thoracic region Hematuria Encounter for routine gynecological examination Encounter for IUD insertion [facility] Work Phone: Evaluation + Plan note Future Appointments Appointment Date:11/13/2023 10:00:00 AM Scheduled Provider:FRANCI PENA Location:[facility] Appointment Type: Wellness Annual Future Scheduled Tests Laboratory* Antinuclear Antibody Screen, Serum 09/28/22 * Iron Level 12/12/22 * Thyroid Stimulating Hormone 09/28/22 * Thyroid Stimulating Hormone 12/12/22 * Free T4 09/28/22 * A1C Hemoglobin 05/10/23 * Rheumatoid Factor 09/28/22 * Lipid Profile 09/28/22 * Complete Metabolic Panel 09/28/22 * Complete Metabolic Panel 05/10/23 * TIBC 12/12/22 [facility] Evaluation + Plan note Future Appointments Appointment Date:06/06/2023 10:15:00 AM Scheduled Provider:NEYDA NICHOLAS MD Location: [facility] Appointment Type: MATERIAL EXPEDITER Appointment Date:11/13/2023 10:00:00 AM Scheduled Provider:FRANCI PENA [...] Complete Metabolic Panel 05/10/23 * TIBC 12/12/22 [facility] Evaluation + Plan note Future Appointments Appointment Date:01/22/2025 01:30:00 PM Scheduled Provider:NEYDA NICHOLAS MD Location: [facility] Appointment Type: OV Appointment Date:02/18/2025 08:00:00 AM Scheduled Provider:FRANCI PENA Location:[facility] Appointment Type:PC OV Future Scheduled Tests Laboratory* TSH with Reflex to FT4 11/25/24 Radiology* MA Mammo Screening Bilateral w/ Thomas 11/25/24 * US Pelvis Non-OB W/Transvaginal 01/01/25 [facility] Evaluation note* Diagnosis Onset Date Resolution Status Acute bronchitis acute Contact with or suspected ex posure to other viral communicable disease acute Back pain acute Segmental and somatic dysfunction of cervical region acute Segmental and somatic dysfunction of lumbar region acute Segmental and somatic dysfunction of pelvic region acute Segmental and somatic dysfunction of thoracic region acute Hematuria acute [facility] Work Phone: Evaluation note* Diagnosis Onset Date Resolution Status Back pain acute Segmental and somatic dysfunction of cervical region acute Segmental and somatic dysfunction of lumbar region acute Segmental and somatic dysfunction of pelvic region acute Segmental and somatic dysfunction of thoracic region acute Hematuria acute Encounter for routine gynecological examination noneactive [facility] Work Phone: Evaluation note* Diagnosis Onset Date Resolution Status Back pain acute Segmental and somatic dysfunction of cervical region acute Segmental and somatic dysfunction of lumbar region acute Segmental and somatic dysfunction of pelvic region acute Segmental and somatic dysfunction of thoracic region acute Hematuria acute Encounter for routine gynecological examination noneactive Encounter for IUD insertion acute [facility] Work Phone: Evaluation note* Diagnosis Onset Date Resolution Status Hematuria acute Encounter for routine gynecological examination noneactive Encounter for IUD insertion acute Encounter for IUD insertion acute Encounter for IUD removal [place] [facility] Work Phone: Evaluation note* Diagnosis Onset Date Resolution Status Encounter for IUD insertion acute Encounter for IUD insertion acute Encounter for IUD removal [place] Encounter for IUD removal [place] Contraceptive management acu te [facility] Work Phone: Evaluation noteNo assessment information available [facility] Work Phone: Evaluation note* Diagnosis Onset Date Resolution Status Acute conjunctivitis, left eye acute [facility] Work Phone: Evaluation note* Diagnosis Onset Date Resolution Status Subacromial impingement of right shoulder noneactive [facility] Work Phone: Evaluation note* Diagnosis Onset Date Resolution Status Subacromial impingement of right shoulder noneactive Encounter for routine gynecological examination noneactive [facility] Work Phone: Hospital course Narrative No data available for this section [facility] Hospital Discharge instructions No data available for this section [facility] Progress note No data available for this section [facility] Summary Purpose Family History No Family History [...] No October 02, 2021 9:58am Power of Discharge Coordinator No October 02 2 9:58am Advance Directive Response Recorded Date/ Time Living Will No October 02, 2021 8:58am Power of Discharge Coordinator No October 02 8:58am Chief Complaint and Reason for Visit Chief Complaint POSSIBLE UTI URINARY S/S COVID 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/ILL 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) VINICIO INSERTION CHECK IUD PLACEMENT IUD replacement [...] 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) Reason for Visit Subacromial impingem ent of right shoulder Encounter for routine gynecological examination Additional Source Comments INFORMATION SOURCE (unrecogn ized section and content) DATE CREATED AUTHOR 02/01/2018 [facility] DATE CREATED AUTHOR AUTHOR'S ORGANIZ ATION 2023 [facility] ([place]) DATE CREATED AUTHOR AUTHOR'S ORGANIZ ATION 01/07/2025 [facility] DATE CREATED AUTHOR AUTHOR'S ORGANIZ ATION 01/10/2025 [facility] Care Teams (unrecognized sec tion and content) Team Status: Active Member Role Status Dates Dr. Lane Mcgee MD Family Provider Active Franci Pena MATERIAL EXPEDITER, MATERIAL EXPEDITER-C Primary Care Provider Active Team Status: Inactive Member Role Status Dates Franci Pena NP, MATERIAL EXPEDITER-C Primary Care Provider, Referri ng Provider Active Dr. Eliana Camacho DO Attending Provider Activ e Team Status: Inactive Member Role Status Dates Franci Pena NP, MATERIAL EXPEDITER-C Primary Care Provider Active Dr. Eliana Camacho DO Attending Provider Activ e Team Status: Inactive Member Role Status Dates Franci Pena NP, MATERIAL EXPEDITER-C Primary Care Provider Active Dr. Eliana Camacho DO Attending Provider, Refe rring Provider Active Team Status: Inactive Member Role Status Dates Franci Pena MATERIAL EXPEDITER, MATERIAL EXPEDITER-C Primary Care Provider Active Dr. Lewis Cabrera MD Attending Provider, Referring Pro vider Active Team Status: Inactive Member Role Status Dates Franci Pena MATERIAL EXPEDITER, MATERIAL EXPEDITER-C Primary Care Provider Active GIOVANNI Zepeda Attending Provider Active Team Status: Inactive Member Role Status Dates Franci Becky MATERIAL EXPEDITER, MATERIAL EXPEDITER-C Primary Care Pro vider, Attending Provider, Referring Provider Active Team Status: Active Member Role Status Dates Franci Pena MATERIAL EXPEDITER, MATERIAL EXPEDITER-C Primary Care Provider Active Health Risk Assessment Attending Provider, Referring P rovider Active Team Status: Inactive Member Role Status Dates Franci Pena MATERIAL EXPEDITER, MATERIAL EXPEDITER-C Primary Care Provider, Referri ng Provider Active GIOVANNI Stevens Attending Provider Active Team Status: Inactive Member Role Status Dates Franci Pena MATERIAL EXPEDITER, MATERIAL EXPEDITER-C Primary Care Provider Active GIOVANNI Stevens Attending Provider, Referring Provi raoul Active FOR RECORDS PERTAINING TO PATIENTS [...] BE BASED ON THE PRIMARY CLINICAL RECORDS. [facility]. provides no warranty or guarantee of the accuracy or completeness of information in this document.
== END | disposition home or self-care (01) ==
LOC: US 13:10
PROVIDERS: PCP Nurse Practitioner Family; Referring Provider Obstetrics & Gynecology Gynecology; Visit Provider Obstetrics & Gynecology Gynecology
DX: N93.9 Abnormal uterine and vaginal bleeding, unspecified (principal); R19.00 Intra-abdominal and pelvic swelling, mass and lump, unspecified site
CPT/HCPCS: 76830; 76856

== ENCOUNTER → 2025-02-11 | Outpatient (CLI) | payer OTHER, SELFPAY ==
--- NOTE | 2025-02-11 13:55 | RAD_ITS ---
PROCEDURE: SHOULDER MIN 2 VIEWS 02/11/2025 REASON FOR EXAM: SHOULDER PAIN TECHNIQUE: Procedure Code: RADSH Modality: DX Procedure: SHOULDER MIN 2 VIEWS Laterality: Right COMPARISON: Right shoulder study dated 10/24/2022 FINDINGS: Bones: There is normal mineralization of the osseous structures. There are no fractures or dislocations. The visualized ribs are unremarkable. Joints: Joint spaces are well preserved. Acromial humeral and cortical clavicular spaces are well-maintained. Soft tissues: Soft tissues are grossly unremarkable. Other: The visualized right lung is unremarkable. RAD/Shoulder min 2 Views IMPRESSION: Unremarkable right shoulder study. Reading Location: [id number]
== END | disposition home or self-care (01) ==
LOC: RAD 13:30
PROVIDERS: PCP Nurse Practitioner Family; Referring Provider Nurse Practitioner Family; Visit Provider Nurse Practitioner Family
DX: M25.511 Pain in right shoulder (principal)
CPT/HCPCS: 73030

== ENCOUNTER → 2025-02-25 | Outpatient (CLI) | payer OTHER, SELFPAY | END | disposition home or self-care (01) | LOC: RAD 15:57 | PROVIDERS: PCP Nurse Practitioner Family; Referring Provider Chiropractor; Visit Provider Chiropractor | DX: M99.01 Segmental and somatic dysfunction of cervical region (principal); G44.86 Cervicogenic headache; M99.03 Segmental and somatic dysfunction of lumbar region; M99.05 Segmental and somatic dysfunction of pelvic region | CPT/HCPCS: 72040; 72100 ==